=== PATIENT | female | born 1990 | race Caucasian/White ===

== ENCOUNTER → 2017-10-01 17:26 | Outpatient (CLI) | payer SELFPAY ==
[2017-10-01 20:39] LABS: Chlamydia Trachomatis by PCR Negative (Negative); Neisserai gonorrhoeae by PCR Negative (Negative); Probe Check PASS; Sample Adequacy Control PASS; Specimen Processing Control PASS
== END ==
PROVIDERS: Visit Provider Obstetrics & Gynecology
DX: Z34.90 Encounter for supervision of normal pregnancy, unspecified, unspecified trimester (principal)
CPT/HCPCS: 87086; 87491; 87591

== ENCOUNTER → 2017-10-13 15:40 | Outpatient (CLI) | payer SELFPAY ==
[2017-10-13 18:34] LABS: Absolute Lymphocyte Count 2.65 X10^3/ul (0.83-4.51); Absolute Neutrophil Count 4.7 X10^3/uL (2.0-7.7); Basophil# 0.03 X10^3/uL; Basophil% 0.4 % (0-1); Eosinophil# 0.09 X10^3/uL; Eosinophils% 1.1 % (0-5); Hematocrit 36.9 % (37-47); Hemoglobin 12.9 g/dl (12.0-15.0); Lymphocyte # 2.65 X10^3/ul (4.0); Lymphocyte % 32.5 % (19-41); Mean Corpuscular Hgb 30.7 pg (27.0-32.0); Mean Corpuscular Volume 87.9 fL (81-99); Mean Platelet Vol. 11.7 fl (6.2-12.0); Monocyte# 0.71 X10^3/uL; Monocyte% 8.7 % (0-10); Neutrophil # 4.66 X10^3/uL (2.7-7.7); Neutrophil % 57.2 % (47-70); Platelet Count 230 K/mm3 (150-450); RBC Distribution Width CV 11.8 % (11.6-14.6); RBC Distribution Width SD 37.7 fl (35.1-43.9); White Blood Count 8.2 K/mm3 (4.4-11.0)
[2017-10-13 18:44] LABS: POSITIVE COUNT NO; POSITIVE DIFFERENTIAL NO; POSITIVE MORPHOLOGY NO
[2017-10-13 19:27] LABS: HIV - WCH Non-Reactive (Nonreactive); Rubella IgG 279.6 IU/mL
[2017-10-15 11:40] LABS: HEPATITIS B SURFACE AG Negative (Negative)
[2017-10-17 04:35] LABS: Rapid Plasmin Reagin (RPR) NONREACTIVE (NONREACTIVE)
== END ==
PROVIDERS: Visit Provider Obstetrics & Gynecology
DX: Z34.90 Encounter for supervision of normal pregnancy, unspecified, unspecified trimester (principal); Z31.5 Encounter for procreative genetic counseling
CPT/HCPCS: 85025; 86592; 86703; 86762; 86850; 86900; 87340

== ENCOUNTER 2017-11-06 03:57 | Emergency (ER) | payer SELFPAY ==
[2017-11-06 03:58] VITALS: BP 127/90; PULSE 103; RESP 20; TEMP 36.9; O2SAT 100; BMI 23.5
--- NOTE | 2017-11-06 04:35 | ED.DCSUM_ITS ---
- ER Visit Summary Date of Service: 11/06/17 Chief Complaint: [] Vaginal bleeding and History of Present Illness: The patient is a 27 F [] proximally 14 weeks . She woke up tonight and had some vaginal bleeding. Initially was heavy like a period. It has slowed down. No clots or tissue. No pain. She has had 2 normal ultrasounds. This is her first . Her blood type is O+. Physical Examination: [] Vital signs reviewed General: Well-nourished well-developed Head: Normocephalic atraumatic Eyes: Pupils equal round and reactive to light extraocular movements intact ENT: TMs clear no hemotympanum no trauma Neck: Nontender full range of motion Cardiovascular: Regular rate rhythm no murmurs normal S1-S2 Respiratory: No distress clear to auscultation bilaterally chest nontender Abdomen: Soft nontender nondistended normal bowel sounds no masses Pelvic: Os is closed. Cervix appears normal. Very mild blood in the posterior fornix. No tissue. No clots. Back: Nontender no CVA tenderness Extremities: Nontender active range of motion ?4 extremities no trauma Skin: Normal color no trauma Neuro alert oriented cranial nerves II through XII intact normal strength sensation reflexes Test Results: [] Emergency Department Course and Treatment: [] Patient would like to stay for a morning ultrasound. This will be ordered. She is O+ therefore does not need RhoGam. She will follow-up with her [employer]. Morning will check the ultrasound Treatment Plan: [] Disposition: [] Impression: [] Vaginal bleeding in first trimester This note was generated with [employer] dictation software. It may contain incorrect words, spelling, and punctuation that were not noted in review of the chart prior to signing ED Disposition - Plan for ED Patient: Chief Complaint: Vag Bld, Preg Referrals: Graeme Mendoza MD [Primary Care Provider] -
--- NOTE | 2017-11-06 07:33 | NURSING ---
DR ROLON IN ROOM
[2017-11-06 07:41] VITALS: BP 128/68; PULSE 84; RESP 18; O2SAT 98
--- NOTE | 2017-11-06 08:19 | ED.VISSUMM ---
- ER Visit Summary Date of Service: 11/06/17 Was seen by me, ultrasound shows an intra-uterine with a normal heart rate. She was reassured but told that at 13 weeks if there is an unfortunate event miscarriage we cannot stop it. We will discharge in stable condition This note was generated with [employer] software. It may contain incorrect words, spelling, and punctuation that were not noted in review of the chart prior to signing ED Disposition - Plan for ED Patient: Disposition: Home or Assisted Living Chief Complaint: Vag Bld, Preg Instructions: ED Miscarriage Poss Referrals: Graeme Mendoza MD [Primary Care Provider] - 2 Days
[2017-11-06 08:34] VITALS: BP 117/67; PULSE 89; RESP 18; O2SAT 99
== END 2017-11-06 08:36 | disposition home or self-care (01) ==
PROVIDERS: Emergency Provider Emergency Medicine; Family Provider Family Medicine; PCP Family Medicine
DX: O20.0 Threatened abortion (principal)
CPT/HCPCS: 76816; 99282

== ENCOUNTER → 2017-11-07 12:24 | Outpatient (CLI) | payer SELFPAY ==
--- NOTE | 2017-11-07 10:10 | POC_PTH ---
PATIENT: MICHAELA LOBATO LOC: [facility] U#:[id number] AGE/SX: 34/F ROOM: RE11/07/[address]: Dr. Kelley Benz MD : 1990 BED: DIS: SPEC #: [id number] RECD: 11/07/17 10:34 STATUS: VICTORIANO NILE #: [id number] OPAL: 11/07/17 10:[address]: Kelley Benz DEPT: SURGICAL PATHOLOGY RECD BY: Harlan Carias ENTERED: 11/07/17 13:03 SP TYPE: PROD CONC OTHR DR: Dr. Graeme Mendoza MD Tissues: Product of conception, NOS Procedures: Surgery Specimen Level IV HEADER OPERATION: Missed PRE-OP DIAGNOSIS: Miscarriage TISSUE SUBMITTED: Fetus, placenta MICROSCOPIC DIAGNOSIS Fetus and placenta: Macerated fetus and immature placental tissue (products of conception). WILLIAM:janis 11/10/17 MICROSCOPIC DESCRIPTION Slides are reviewed. GROSS DESCRIPTION Received is one container labeled with the patient's name and not further designated. The specimen consists of a macerated fetus. The fetus measures 6 cm rump to top of head and approximately 8.5 cm from head to heel. No obvious gross abnormalities are identified. Also present in the specimen container is a placenta measuring 5.5 x 4 x 2 cm. The placenta weighs 13.5 gm. Serial sections of the placenta does not reveal mass lesions. Tail [employer] Worker sections are submitted in three cassettes as follows: 1 ? portions of fetus, 2 ? umbilical cord and placental membranes, 3 ? placental disc. / AM:janis 11/07/17 TC:5 CPT: 31015
== END ==
PROVIDERS: Family Provider Family Medicine; PCP Family Medicine; Visit Provider Obstetrics & Gynecology
DX: O02.1 Missed abortion (principal)
CPT/HCPCS: 88305

== ENCOUNTER → 2017-11-13 13:20 | Outpatient (CLI) | payer SELFPAY | PROVIDERS: Family Provider Family Medicine; PCP Family Medicine; Visit Provider Obstetrics & Gynecology | DX: O03.9 Complete or unspecified spontaneous abortion without complication (principal) ==

== ENCOUNTER → 2017-11-17 12:11 | Outpatient (CLI) | payer SELFPAY ==
[2017-11-17 13:56] LABS: Thyroid Stim Hormone (TSH) 1.95 uIU/mL (0.358-3.74)
== END ==
PROVIDERS: Family Provider Family Medicine; PCP Family Medicine; Visit Provider Obstetrics & Gynecology
DX: O03.9 Complete or unspecified spontaneous abortion without complication (principal)
CPT/HCPCS: 36415; 84443

== ENCOUNTER 2018-02-16 10:10 | Emergency (ER) | payer SELFPAY ==
[2018-02-16 10:13] VITALS: BP 135/76; PULSE 82; RESP 14; TEMP 36.7; O2SAT 98; BMI 22.9
--- NOTE | 2018-02-16 10:25 | RAD_ITS ---
STUDY: X-RAY CHEST REASON FOR EXAM: Female, 27 years old. One-week history of pleuritic chest pain. TECHNIQUE: PA and lateral views of the chest. COMPARISON: None. FINDINGS: The lungs are clear and expanded. There is no demonstrated pleural abnormality. Normal size heart. Normal mediastinum and brandon. Normal visualized pulmonary arteries. Normal visualized aortic arch and descending thoracic aorta. Normal visualized thoracic spine. Normal visualized ribs, clavicles, and shoulders. There is no demonstrated abnormality of the visualized soft tissue structures of the upper abdomen. RAD/Chest PA and Lateral IMPRESSION: Normal x-ray examination of the chest. Electronically Signed: Fritz Mckinley MD at 10:45 EST Tel [phone], Service support ,
--- NOTE | 2018-02-16 10:27 | ED.VISSUMM ---
- ER Visit Summary Date of Service: 02/16/18 Chief Complaint: Patient sent to the ER from urgent care because of chest pain History of Present Illness: The patient is a 27 F who was seen by her primary care physician last week and instructed to take 600 mg of ibuprofen every 6 hours for costochondritis. She does report pain anteriorly and states she has pain with movement, palpation and breathing. She denies history of PE or DVT and she has no risk factors. She denies leg pain, swelling or discoloration. She does report mild nasal congestion. She denies headache, ocular, visual or auditory symptoms. She denies nausea, vomiting or diarrhea. She denies dysuria, frequency, urgency or hematuria. She denies myalgias or arthralgias. Physical Examination: Vital signs noted unremarkable blood pressure 135/76. Head is atraumatic normocephalic. Pupils are equal round reactive. Extraocular muscles are intact. TMs are pearly white with landmarks noted. Nares patent with no drainage; mucosa is boggy. Purulent, close. Posterior pharynx without erythema or exudate. Uvula is midline. There is no dysphonia or dysphasia. Trachea is midline. There is no stridor with auscultation of the neck. Heart is regular without murmur, gallop or rub. S1 and S2 are normal. A click was noted. (The patient states she has history of mitral valve prolapse.) Lungs are clear to auscultation with good movement of air bilaterally. There is reproducible bilateral anterior chest pain left greater than right. Abdomen is soft nontender with no hepatosplenomegaly. There is no asymmetry, swelling, discoloration, leg vein distention, palpable cords or tenderness along the distribution of the deep venous system. Test Results: Two-view chest x-ray interpreted by me as negative. There is no infiltrate, pneumothorax, effusion. Cardiac silhouette is normal. Mediastinum is normal with no hilar lymphadenopathy. Osseous structures are normal. Emergency Department Course and Treatment: Patient is PERC negative. Patient has reproducible pain as well as pleuritic component. Because she reported nasal congestion and symptoms have been present for 1 week will obtain chest x-ray to evaluate for pneumonia. Otherwise will continue anti-inflammatory and treat for pleurisy. She may also have costochondritis. Treatment Plan: Continue NSAID Disposition: Discharged to home Impression: 1. Pleuritic chest pain 2. History of mitral valve prolapse This note was generated with [employer] dictation software. It may contain incorrect words, spelling, and punctuation that were not noted in review of the chart prior to signing ED Disposition - Plan for ED Patient: Disposition: Home or Assisted Living Chief Complaint: Chest Pain Instructions: ED Chest Pain Pleurisy, ED Prolapse Mitral Valve, Heart Valve Problems: Mitral Valve Prolapse Referrals: Graeme Mendoza MD [Primary Care Provider] - 1 Week if not improving
--- NOTE | 2018-02-16 10:30 | ED.DCSUM_ITS ---
- ER Visit Summary Date of Service: 02/16/18 Chief Complaint: Patient sent to the ER from urgent care because of chest pain History of Present Illness: The patient is a 27 F who was seen by her primary care physician last week and instructed to take 600 mg of ibuprofen every 6 hours for costochondritis. She does report pain anteriorly and states she has pain with movement, palpation and breathing. She denies history of PE or DVT and she has no risk factors. She denies leg pain, swelling or discoloration. She does report mild nasal congestion. She denies headache, ocular, visual or auditory symptoms. She denies nausea, vomiting or diarrhea. She denies dysuria, frequency, urgency or hematuria. She denies myalgias or arthralgias. Physical Examination: Vital signs noted unremarkable blood pressure 135/76. Head is atraumatic normocephalic. Pupils are equal round reactive. Extraocular muscles are intact. TMs are pearly white with landmarks noted. Nares patent with no drainage; mucosa is boggy. Purulent, close. Posterior pharynx without erythema or exudate. Uvula is midline. There is no dysphonia or dysphasia. Trachea is midline. There is no stridor with auscultation of the neck. Heart is regular without murmur, gallop or rub. S1 and S2 are normal. A click was noted. (The patient states she has history of mitral valve prolapse.) Lungs are clear to auscultation with good movement of air bilaterally. There is reproducible bilateral anterior chest pain left greater than right. Abdomen is soft nontender with no hepatosplenomegaly. There is no asymmetry, swelling, discoloration, leg vein distention, palpable cords or tenderness along the distr ibution of the deep venous system. Test Results: Two-view chest x-ray interpreted by me as negative. There is no infiltrate, pneumothorax, effusion. Cardiac silhouette is normal. Mediastinum is normal with no hilar lymphadenopathy. Osseous structures are normal. Emergency Department Course and Treatment: Patient is PERC negative. Patient has reproducible pain as well as pleuritic component. Because she reported nasal congestion and symptoms have been present for 1 week will obtain chest x- ray to evaluate for pneumonia. Otherwise will continue anti-inflammatory and treat for pleurisy. She may also have costochondritis. Treatment Plan: Continue NSAID Disposition: Discharged to home Impression: 1. Pleuritic chest pain 2. History of mitral valve prolapse This note was generated with [employer] dictation software. It may contain incorrect words, spelling, and punctuation that were not noted in review of the chart prior to signing ED Disposition - Plan for ED Patient: Disposition: Home or Assisted Living Chief Complaint: Chest Pain Instructions: ED Chest Pain Pleurisy, ED Prolapse Mitral Valve, Heart Valve Problems: Mitral Valve Prolapse Referrals: Graeme Mendoza MD [Primary Care Provider] - 1 Week if not improving
[2018-02-16 11:03] VITALS: BP 120/82; PULSE 86; RESP 14; O2SAT 99
[2018-02-16 12:31] VITALS: BP 112/78
== END 2018-02-16 12:40 | disposition home or self-care (01) ==
PROVIDERS: Emergency Provider Emergency Medicine; Family Provider Family Medicine; PCP Family Medicine
DX: R07.81 Pleurodynia (principal); I34.1 Nonrheumatic mitral (valve) prolapse; Z72.0 Tobacco use
CPT/HCPCS: 71046; 99282

== ENCOUNTER → 2018-04-08 15:52 | Outpatient (CLI) | payer SELFPAY ==
[2018-04-08 17:03] LABS: hCG Titer Quant., Serum 135 mIU/mL (<9 non-preg)
--- OUTSIDE RECORDS SUMMARY | 2018-06-13 15:28 | XMS RPT_ITS ---
:1990 Author Organization [facility] Support Name Relationship Address Phone SOCRATES LOBATO Unavailable [address] + [place] [address] [facility] PLANISHING HAMMER OPERATOR Unavailable [address] + [place] [address] HELADARSH GONZALEZSHUA Unavailable [address] + [place] [address] [facility] PLANISHING HAMMER OPERATOR Unavailable [address] + [place] [address] HELMS, SOCRATES Unavailable [address] + [place] [address] [facility] PLANISHING HAMMER OPERATOR Unavailable [address] + [place] [address] HELMS, SOCRATES Unavailable [address] + [place] [address] [facility] PLANISHING HAMMER OPERATOR Unavailable [address] + [place] [address] HELMS, SOCRATES Unavailable [address] + [place] [address] [facility] PLANISHING HAMMER OPERATOR Unavailable [address] + [place] [address] HELMS, SOCRATES Unavailable [address] + [place] [address] [facility] PLANISHING HAMMER OPERATOR Unavailable [address] + [place] [address] HELMS, SOCRATES Unavailable [address] + [place] [address] [facility] PLANISHING HAMMER OPERATOR Unavailable [address] + [place] [address] HELMS, SOCRATES Unavailable [address] + [place] [address] [facility] PLANISHING HAMMER OPERATOR Unavailable [address] + [place] [address] HELMS, SOCRATES Unavailable [address] + [place] [address] [facility] PLANISHING HAMMER OPERATOR Unavailable [address] + [place] [address] CLARK LOBATOUA Unavailable [address] + [place] [address] [facility] PLANISHING HAMMER OPERATOR Unavailable . + [place] [address] ADARSH LOBATOSHUA Unavailable [address] + [place] [address] [facility] PLANISHING HAMMER OPERATOR Unavailable [address] + [place] [address] ADARSH LOBATOSHUA Unavailable [address] + [place] [address] [facility] PLANISHING HAMMER OPERATOR Unavailable . + [place] [address] ADARSH LOBATOSHUA Unavailable [address] + [place] [address] [facility] PLANISHING HAMMER OPERATOR Unavailable Unavailable + [place] [address] [facility] PLANISHING HAMMER OPERATOR Unavailable Unavailable + [place] [address] Care Team Providers Name Role Phone Millie James Attending Unavailable JacobMillie Referring Unavailable Schinner, Graeme E Primary Care Unavailable Millie James Attending Unavailable JacobMillie Referring Unavailable Schinner, Graeme E Primary Care Unavailable Kelley Benz Attending Unavailable Primay Care Physicia, No Referring Unavailable Primay Care Physicia, No Primary Care Unavailable Kelley Benz Attending Unavailable Primay Care Physicia, No Primary Care Unavailable Kelley Benz Referring Unavailable MarcanthonyKelley Attending Unavailable MarcanthonyKelley Referring Unavailable Primay Care Physicia, No Primary Care Unavailable JacobMillie Attending Unavailable Schinner, Graeme E Referring Unavailable Primay Care Physicia, No Primary Care Unavailable Schinner, Graeme E Primary Care Unavailable Chuck Gamez Attending Unavailable MarcanthonyKelley Attending Unavailable Schinner, Graeme E Referring Unavailable JacobMillie Attending Unavailable Schinner, Graeme E Referring Unavailable MarcanthonyKelley Attending Unavailable Schinner, Graeme E Primary Care Unavailable JconyKelley Referring Unavailable MarcanthonyKelley Attending Unavailable Amilcaranthony Kelley Referring Unavailable Schinner, Graeme E Primary Care Unavailable Marcanthony, Kelley Attending Unavailable Kelley Benz Referring Unavailable Graeme Mendoza Primary Care Unavailable Graeme Mendoza Primary Care Unavailable Kavin Boyle Attending Unavailable PROBLEMS PROBLEMS DATE TYPE CONDITION / CODE ATTENDING STATUS SOURCE 12/12/2017 Unknown O03.9 - Complete Tuyet, Active [place] or unspecified [facility] spontaneous Hospital without Repository complication / O03.9(ICD-10) 11/06/2017 Unknown Z34.90 - Encounter Tuyet, Active [place] for supervision of [facility] normal , Hospital unspecified, Repository unspecified trimester / Z34.90(ICD-10) 10/01/2017 Unknown Z34.01 - Encounter Tuyet, Active [place] for supervision of [facility] normal first Hospital , first Repository trimester / Z34.01(ICD-10) PROCEDURES PROCEDURES No Procedure Records FoundRESULTS RESULTS HCG TITER QUANT., Collected: 04/10/2018 Status: F Source: DES ARC SERUM 12:17 PM [facility] [place] [place] REPOSITORY Order Comment: Date of Last Menstrual Period? 03/10/18 TYPE CODE TESTS RESULT OUT OF RANGE REFERENCE UNITS LAB L700.8000 <9 non-preg mIU/mL High HCG 326 QUANT. Performed By: #### L700.8000 #### [facility] [address] [place], [address] HCG TITER QUANT., Collected: 04/08/2018 Status: F Source: DES ARC SERUM 3:57 PM [facility] [place] [place] REPOSITORY TYPE CODE TESTS RESULT OUT OF RANGE REFERENCE UNITS LAB L700.8000 <9 non-preg mIU/mL High HCG 135 QUANT. Performed By: #### L700.8000 #### [facility] [address] [place], [address] EMERGENCY DEPARTMENT Observed: 02/16/2018 Status: F Source: [place] SUMMARY 11:48 AM [facility] [place] [place] REPOSITORY [facility] Medical Records Department [address] [place] [address] Emergency Department Summary 02/16/18 1027 MR#: [id number] Acct: [id number] Name: MICHAELA LOBATO Rep #: [id number] : 1990 27 From: Kavin Boyle MD PCP: Graeme Mendoza MD Status: REG ER - ER Visit Summary Date of Service: 02/16/18 Chief Complaint: Patient sent to the ER from urgent care because of chest pain History of Present Illness: The patient is a 27 F who was seen by her primary care physician last week and instructed to take 600 mg of ibuprofen every 6 hours for costochondritis. She does report pain anteriorly and states she has pain with movement, palpation and breathing. She denies history of PE or DVT and she has no risk factors. She denies leg pain, swelling or discoloration. She does report mild nasal congestion. She denies headache, ocular, visual or auditory symptoms. She denies nausea, vomiting or diarrhea. She denies dysuria, frequency, urgency or hematuria. She denies myalgias or arthralgias. Physical Examination: Vital signs noted unremarkable blood pressure 135/76. Head is atraumatic normocephalic. Pupils are equal round reactive. Extraocular muscles are intact. TMs are pearly white with landmarks noted. Nares patent with no drainage; mucosa is boggy. Purulent, close. Posterior pharynx without erythema or exudate. Uvula is midline. There is no dysphonia or dysphasia. Trachea is midline. There is no stridor with auscultation of the neck. Heart is regular without murmur, gallop or rub. S1 and S2 are normal. A click was noted. (The patient states she has history of mitral valve prolapse.) Lungs are clear to auscultation with good movement of air bilaterally. There is reproducible bilateral anterior chest pain left greater than right. Abdomen is soft nontender with no hepatosplenomegaly. There is no asymmetry, swelling, discoloration, leg vein distention, palpable cords or tenderness along the distribution of the deep venous system. Test Results: Two-view chest x-ray interpreted by me as negative. There is no infiltrate, pneumothorax, effusion. Cardiac silhouette is normal. Mediastinum is normal with no hilar lymphadenopathy. Osseous structures are normal. Emergency Department Course and Treatment: Patient is PERC negative. Patient has reproducible pain as well as pleuritic component. Because she reported nasal congestion and symptoms have been present for 1 week will obtain chest x-ray to evaluate for pneumonia. Otherwise will continue anti-inflammatory and treat for pleurisy. She may also have costochondritis. Treatment Plan: Continue NSAID Disposition: Discharged to home Impression: 1. Pleuritic chest pain 2. History of mitral valve prolapse This note was generated with VII NETWORK dictation software. It may contain incorrect words, spelling, and punctuation that were not noted in review of the chart prior to signing ED Disposition - Plan for ED Patient: Disposition: Home or Assisted Living Chief Complaint: Chest Pain Instructions: ED Chest Pain Pleurisy, ED Prolapse Mitral Valve, Heart Valve Problems: Mitral Valve Prolapse Referrals: Graeme Mendoza MD [Primary Care Provider] - 1 Week if not improving What to do if you have Problems For any increased pain, shortness of breath, bleeding, nausea or vomiting, chest pain, or any unexpected problems, contact your Primary Care Provider. Call [facility] ([phone]) or report to the closest Emergency Room. Call 911 if necessary. 02/16/18 1148 <Electronically signed by Kavin Boyle MD> Date Kavin Boyle MD Cosigner Signature (If Indicated): Date CC: Graeme Mendoza MD CHEST PA AND LATERAL Observed: 02/16/2018 Status: F Source: DES ARC 10:21 AM [facility] [place] [place] REPOSITORY [facility] Imaging Services [address] [place] [address] Chest PA and Lateral MR#: [id number] Acct: [id number] Name: MICHAELA LOBATO Rep #: [id number] : 1990 F 27 From: Fritz Mckinley MD PCP: Graeme Mendoza MD Status: PRE ER Study: Chest PA and Lateral Date of Exam: 02/16/18 Exam# [id number] Ordering Dr: Kavin Boyle MD STUDY: X-RAY CHEST REASON FOR EXAM: Female, 27 years old. One-week history of pleuritic chest pain. TECHNIQUE: PA and lateral views of the chest. COMPARISON: None. FINDINGS: The lungs are clear and expanded. There is no demonstrated pleural abnormality. Normal size heart. Normal mediastinum and brandon. Normal visualized pulmonary arteries. Normal visualized aortic arch and descending thoracic aorta. Normal visualized thoracic spine. Normal visualized ribs, clavicles, and shoulders. There is no demonstrated abnormality of the visualized soft tissue structures of the upper abdomen. RAD/Chest PA and Lateral IMPRESSION: Normal x-ray examination of the chest. Electronically Signed: Fritz Mckinley MD at 10:45 EST Tel [phone], Service support , CC: Graeme Mendoza MD; Kavin Boyle MD Rate Clerk Passenger: Signed THYROID STIM HORMONE Collected: 11/17/2017 Status: F Source: [place] (TSH) 12:23 PM [facility] [place] [place] REPOSITORY TYPE CODE TESTS RESULT OUT OF RANGE REFERENCE UNITS LAB L501.9520 0.358-3.74 uIU/mL Normal TSH 1.95 Performed By: #### L501.9520, L801.1541 #### [facility] [place], [address] MISCELLANEOUS LAB Collected: 11/17/2017 Status: F Source: [place] PROCEDURE 12:23 PM [facility] [place] [place] REPOSITORY Order Comment: Comments: ANTIPHOSPHOLIPID AB [id number] PLASMA/FZ SER/RT Comments: Antiphosolipid Antibody Test(s) Ordered: ANTIPHOSPHOLIPID AB [id number] PLASMA/FZ SER/RT TYPE CODE TESTS RESULT OUT OF RANGE REFERENCE UNITS LAB L801.1541 Normal [facility] LAB TEST Result Comment: TEST RESULT UNITS REF INTERVAL Antiphospholipid Syndrome aPTT 27.6 sec 22.9 - 30.2 PT 11.1 sec 9.6 - 11.5 INR 1.0 0.9 - 1.1 Reference interval is for non-anticoagulated patients. Suggested INR therapeutic range for Vitamin K antagonist therapy: Standard Dose (moderate intensity therapeutic range): 2.0 - 3.0 Higher intensity therapeutic range 2.5 - 3.5 Thrombin Time 18.0 sec 0.0 - 23.0 dRVVT 37.7 sec 0.0 - 47.0 Hexagonal Phase Phospholipid 0 sec 0 - 11 Anticardiolipin Ab,IgG,Qn <9 GPL U/mL 0 - 14 Negative: <15 Indeterminate: 15 - 20 Low-Med Positive: >20 - 80 High Positive: >80 Anticardiolipin Ab,IgM,Qn <9 MPL U/mL 0 - 12 Negative: <13 Indeterminate: 13 - 20 Low-Med Positive: >20 - 80 High Positive: >80 Beta-2 Glycoprotein I Ab, IgG <9 GPI IgG 0 - 20 units Please Note: The reference interval reflects a 3SD or 99th percentile interval, which is thought to represent a potentially clinically significant result in accordance with the International Consensus Statement on the classification criteria for definitive antiphospholipid syndrome (APS). J Thromb Haem 2006;4:295-306. Beta-2 Glycoprotein I Ab, IgM <9 GPI IgM units 0 - 31 Please Note: The reference interval reflects a 3SD or 99th percentile interval, which is thought to represent a potentially clinically significant result in accordance with the International Consensus Statement on the classification criteria for definitive antiphospholipid syndrome (APS). J Thromb Haem 2006;4:295-306. APS Panel Interpretation Please refer to the Coag Studies Interp Report. Coag Studies Interp Report Interpretation Note COAGULATION: ANTIPHOSPHOLIPID SYNDROME ASSESSMENT ASSESSMENT A lupus anticoagulant is not detected. aCL and B2GP1 antibodies are normal. ANTIPHOSPHOLIPID SYNDROME ASSESSMENT SUMMARY - No evidence of a lupus anticoagulant, B2GP1 or aCL antibodies. As antibody titers may fluctuate with time, repeat testing may be indicated if antiphospholipid syndrome is suspected. ANTIPHOSPHOLIPID SYNDROME ASSESSMENT DEFINITIONS - aCL- anticardiolipin (antibodies to cardiolipin); B2GP1- antibodies to Beta-2 Glycoprotein 1; LA- lupus anticoagulant (which is identified with the dRVVT and/or hexagonal phospholipid neutralization assays); aPL- antibodies to protein/phospholipid complexes such as LA, aCL, and B2GP1 antibodies; APS- antiphospholipid syndrome; DTI-direct thrombin inhibitors. - AIRCRAFT MECHANIC: For questions regarding panel interpretation, please contact Charanjit Hilliard M.D. at [facility] [facility] at . DISCLAIMER These assessments and interpretations are provided as a convenience in support of the physician-patient relationship and are not intended to replace the physician's clinical judgment. They are derived from national guidelines in addition to other evidence and expert opinion. The clinician should consider this information within the context of clinical opinion and the individual patient. SEE GUIDANCE FOR ANTIPHOSPHOLIPID SYNDROME ASSESSMENT:(1) Yolande Kirby et al. J Thromb Haemost. 2009; 7(10):9156-8653. (2) Dillon S et al. J Thromb Haemost. 2006;4(2):295-306. (3) Justin DA et al. Blood. 2007;110(9): 6831-7217. TESTING PERFORMED AT [facility]. ORIGINAL REPORT ON FILE IN LAB CONTAINS ADDITIONAL TEST SITE INFORMATION. Performed By: #### L501.9520, L801.1541 #### [facility] [address] [place], [place], [address] PRODUCTS OF CONCEPTION Observed: 11/07/2017 Status: F Source: [place] 10:10 AM [facility] [place] [place] REPOSITORY Patient: MICHAELA LOBATO : 1990 (27/F) Acct Num: [id number] Phys: Tuyet BUCKNER,Kelley Unit Num: [id number] Loc: LABSPEC Specimen: [id number] Received: 11/07/17 - 1034 Spec Type: PROD CONC TISSUES TISSUES: Product of conception, NOS GROSS DESCRIPTION Received is one container labeled with the patient's name and not further designated. The specimen consists of a macerated fetus. The fetus measures 6 cm rump to top of head and approximately 8.5 cm from head to heel. No obvious gross abnormalities are identified. Also present in the specimen container is a placenta measuring 5.5 x 4 x 2 cm. The placenta weighs 13.5 gm. Serial sections of the placenta does not reveal mass lesions. Title Clerk Automobile sections are submitted in three cassettes as follows: 1 portions of fetus, 2 umbilical cord and placental membranes, 3 placental disc. / AM:janis 11/07/17 TC:5 CPT: 35320 HEADER OPERATION: Missed PRE-OP DIAGNOSIS: Miscarriage TISSUE SUBMITTED: Fetus, placenta MICROSCOPIC DESCRIPTION Slides are reviewed. MICROSCOPIC DIAGNOSIS Fetus and placenta: Macerated fetus and immature placental tissue (products of conception). SJ:janis 11/10/17 Signed Alvin Freeman 11/10/17 <signature on file> Performed By: #### PPOC #### [facility] [address] [facility], [address] EMERGENCY DEPARTMENT Observed: 11/06/2017 Status: F Source: [place] AR[place] SUMMARY 8:20 AM [facility] [place] [place] REPOSITORY [facility] Medical Records Department [address] [address] Emergency Department Summary 11/06/17 0819 MR#: [id number] Acct: [id number] Name: MICHAELA LOBATO Rep #: [id number] : 1990 27 From: Chuck Gamez MD PCP: Graeme Mendoza MD Status: REG ER - ER Visit Summary Date of Service: 11/06/17 Was seen by me, ultrasound shows an intra-uterine with a normal heart rate. She was reassured but told that at 13 weeks if there is an unfortunate event miscarriage we cannot stop it. We will discharge in stable condition This note was generated with Dragon dictation software. It may contain incorrect words, spelling, and punctuation that were not noted in review of the chart prior to signing ED Disposition - Plan for ED Patient: Disposition: Home or Assisted Living Chief Complaint: Vag Bld, Preg Instructions: ED Miscarriage Poss Referrals: Graeme Mendoza MD [Primary Care Provider] - 2 Days What to do if you have Problems For any increased pain, shortness of breath, bleeding, nausea or vomiting, chest pain, or any unexpected problems, contact your Primary Care Provider. Call [facility] ([phone]) or report to the closest Emergency Room. Call 911 if necessary. 11/06/17 08 <Electronically signed by Chuck Gamez MD> Date Chuck Gamez MD Cosigner Signature (If Indicated): Date CC: Graeme Mendoza MD EMERGENCY DEPARTMENT Observed: 11/06/2017 Status: F Source: DES AR[place] SUMMARY 4:42 AM [facility] [place] [place] REPOSITORY [facility] Medical Records Department [address] [facility] [place] [address] Emergency Department Summary 11/06/17 0433 MR#: [id number] Acct: [id number] Name: MICHAELA LOBATO DEL[place] Rep #: [id number] : 1990 27 From: Rogelio Meza MD PCP: Graeme Mendoza MD Status: REG ER - ER Visit Summary Date of Service: 11/06/17 Chief Complaint: [] Vaginal bleeding and History of Present Illness: The patient is a 27 F [] proximally 14 weeks . She woke up tonight and had some vaginal bleeding. Initially was heavy like a period. It has slowed down. No clots or tissue. No pain. She has had 2 normal ultrasounds. This is her first . Her blood type is O+. Physical Examination: [] Vital signs reviewed General: Well-nourished well-developed Head: Normocephalic atraumatic Eyes: Pupils equal round and reactive to light extraocular movements intact ENT: TMs clear no hemotympanum no trauma Neck: Nontender full range of motion Cardiovascular: Regular rate rhythm no murmurs normal S1-S2 Respiratory: No distress clear to auscultation bilaterally chest nontender Abdomen: Soft nontender nondistended normal bowel sounds no masses Pelvic: Os is closed. Cervix appears normal. Very mild blood in the posterior fornix. No tissue. No clots. Back: Nontender no CVA tenderness Extremities: Nontender active range of motion 4 extremities no trauma Skin: Normal color no trauma Neuro alert oriented cranial nerves II through XII intact normal strength sensation reflexes Test Results: [] Emergency Department Course and Treatment: [] Patient would like to stay for a morning ultrasound. This will be ordered. She is O+ therefore does not need RhoGam. She will follow-up with her SECURITY INSTALLATION TECHNICIAN. Morning will check the ultrasound Treatment Plan: [] Disposition: [] Impression: [] Vaginal bleeding in first trimester This note was generated with VII NETWORK dictation software. It may contain incorrect words, spelling, and punctuation that were not noted in review of the chart prior to signing ED Disposition - Plan for ED Patient: Chief Complaint: Vag Bld, Preg Referrals: Graeme Mendoza MD [Primary Care Provider] - What to do if you have Problems For any increased pain, shortness of breath, bleeding, nausea or vomiting, chest pain, or any unexpected problems, contact your Primary Care Provider. Call [facility] ([phone]) or report to the closest Emergency Room. Call 911 if necessary. 11/06/17 0442 <Electronically signed by Rogelio Meza MD> Date Rogelio Meza MD Cosigner Signature (If Indicated): Date CC: Graeme Mendoza MD OB LIMITED WITH Observed: 11/06/2017 Status: F Source: DES ARC BIOMETRICS 4:33 AM [facility] [place] [place] REPOSITORY [facility] Imaging Services [address] [place] [address] OB Limited With Biometrics MR#: [id number] Acct: [id number] Name: MICHAELA LOBATO Rep #: [id number] : 1990 F 27 From: Sinan Quinones MD PCP: Graeme Mendoza MD Status: REG ER Study: OB Limited With Biometrics Date of Exam: 11/06/17 Exam# [id number] Ordering Dr: Rogelio Meza MD STUDY: SECOND AND THIRD TRIMESTER OBSTETRICAL ULTRASOUND - LIMITED REASON FOR EXAM: Female, 27 years old. Bleeding. LMP: 08/03/2017 PRIOR ULTRASOUND: None. TECHNIQUE: Transabdominal ultrasound evaluation was performed. FINDINGS: There is a single intrauterine fetus. The fetus is in a cephalic presentation. There is demonstrated cardiac activity with a heart rate of 169 bpm. There is a normal amniotic fluid volume. The placenta is fundal in location. There are Grade 0 placental changes. BIOMETRY: BPD: 2.1: 13 weeks, 4 days HC: 7.7: 13 weeks, 3 days AC: 5.9: 12 weeks, 6 days FL: 0.89: 12 weeks, 5 days Age by LMP: 13 weeks, 4 days. TORO by LMP: 05/10/2018. age by current US: 13 weeks, 1 days. TORO by current US: 05/13/2018. Estimated weight: 63 grams, +/- 9 grams, 3 percentile. US/OB Limited With Biometrics IMPRESSION: Estimated weight: 63 grams, +/- 9 grams, 3 percentile. Electronically Signed: Sinan Quinones MD at 6:53 EDT Tel , Service support , CC: Graeme Mendoza MD; Rogelio Meza MD Rate Clerk Passenger: Signed SECURITY INSTALLATION TECHNICIAN OFFICE VISIT Observed: 10/29/2017 Status: F Source: [place] REPORT 1:25 PM [facility] [address] [place] [address] OFFICE VISIT Date of Service: 10/29/17 MR#: [id number] Acct: [id number] Name: MICHAELA LOBATO Rep #: [id number] : 1990 Provider: JENNIFER James Age/Sex: 27/F Location: [facility] [place] Status: Signed Intake Vital Signs10/29/17 Height 5 ft 2 in 10/29/17 Weight: 126 lb 10/29/17 Body Mass Index (BMI) 23.0 10/29/17 Blood Pressure 134/79 Intake Visit Reasons: 12 weeks Inking Machine Tender Required: No Is patient in pain?: No Allergies No Known Allergies Allergy (Verified 10/29/17 13:03) Medications vitamin,calcium,fyeaomgw-ntof-qfxpm acid tablet 1 tab PO QDAY 10/01/17 [History Confirmed 10/29/17] Last Menstral Period: 08/03/17 Zika: Zika virus screening: Negative : No PFSH PFSH Medical History Anxiety (Acute) Surgical History History of tonsillectomy (Acute) Social History Smoking Status: Never smoker alcohol intake: current details: pre substance use type: does not use caffeine: Yes what type of physical activity do you participate in: none seatbelt use: always do you feel safe at home: Yes additional social history: Patient works at [employer] History 1 Elective abortions Hx Para Spontaneous abortions HPI 12 weeks: Details: MICHAELA LOBATO is a 27 year old who presents for routine OB visit. OB Visit TORO Calculator Estimated Delivery Date 05/10/18 Based on LMP (certain) 08/03/17 Current WG 12w 3d Number 1 Expected Delivery Route/Plan Specific Issue/Plans flu vaccine: [] minichart given: [] tdap vaccine: [] rhogam: NA LARC form signed: [] labor support person: Clark pain management: [] cut cord/dad catch: [] : [] PP control planned: [] special requests: [] Initial Weight: 115 lb Date Weight BP Urine PrFHR FuHt Pres MoCTX DilationFetal StVisit NoProviderComments E ot v te GA G Effac lucose ed Visit Notes Visit Date: 10/29/17 Doing well. Rare nausea. NO VB, LOF. Brief US to confirm FHT JARAD Obrien on 10/29/17 ACOG First Trimester First Trimester: Desire for , Alcohol, Tobacco Cessation, Illicit/Recreational Drug/Substance Use, Intimate Partner Violence, Barriers to care, Unstable Housing, Communication Barriers, Environmental/Work Hazards, Anticipated Course of Care, Toxoplasmosis Precations, Use of Any medications, Sexual activity, Exercise, Dental Care, Sauna/Hot tub use, Seat Belt use, Childbirth classes/Hospital facilities, , Travel, Indications for US and Screening for Aneuploidy Diagnostics Diagnostics Labs Blood Type O POSITIVE 10/13/17 Antibody Screen NEGATIVE 10/13/17 Hct 36.9 % (37-47) L 10/13/17 Hgb 12.9 g/dl (12.0-15.0) 10/13/17 Pap Smear Negative 10/28/16 Rubella IgG Antibody 279.6 IU/mL 10/13/17 RPR NONREACTIVE (NONREACTIVE) 10/13/17 Hep Bs Antigen Negative (Negative) 10/13/17 Chlam trachomat DNA PCR Negative (Negative) 10/01/17 N.gonorrhoeae DNA (PCR) Negative (Negative) 10/01/17 Miscellaneous Test Pending 10/13/17 Details: HIV: Urine Culture: Sequential Screen: NIPT Screen: Results [id number] Office Urine Glucose Negative Last Edit by Kala Jalloh on 10/29/17 13:04 Office Urine Protein Negative Last Edit by Kala Jalloh on 10/29/17 13:04 Assessment AND Plan Problems 1. Encounter for supervision of normal first in first trimester Z34.01 TORO 05/10/18 Clark 2. screening encounter Z36.9 Panorama- Low risk- Male 3. 12 weeks gestation of Z3A.12 Plan Orders placed: none Reviewed symptoms to report to office Normal DNA on panorama testing-male ACOG trimester education reviewed and updated See problem list details for updated plan of care Gestational age appropriate handout given RTO: 4 weeks. Orders Orders: Coding Level of Care Code OB Routine Diagnoses Encounter for supervision of normal first in first trimester Z34.01 Normal : normal first Trimester: first trimester screening encounter Z36.9 12 weeks gestation of Z3A.12 Weeks of gestation: 12 weeks 10/29/17 1325 <Electronically signed by Millie ABRAHAM> Date Millie ABRAHAM Cosigner Signature: Date (if applicable) CC: MISCELLANEOUS LAB Collected: 10/13/2017 Status: F Source: KATIE PROCEDURE 3:49 PM [facility] [place], [place] REPOSITORY Order Comment: Test(s) Ordered: PANORAMA TESTING TYPE CODE TESTS RESULT OUT OF RANGE REFERENCE UNITS LAB L801.1541 Normal [facility] LAB TEST Result Comment: Sent directly to testing facility per ordering physician. 11/03/17 0924 MYOUNG Performed By: #### L801.1541 #### [facility] [address] [place], [address] CBC W/DIFF, AUTOMATED Collected: 10/13/2017 Status: F Source: KATIE 3:48 PM [facility] [place], [place] REPOSITORY TYPE CODE TESTS RESULT OUT OF RANGE REFERENCE UNITS LAB L100.1000 4.4-11.0 K/mm3 Normal WBC 8.2 LAB L100.1200 4.2-5.4 M/mm3 Normal RBC 4.20 LAB L100.1300 12.0-15.0 g/dl Normal HGB 12.9 LAB L100.1400 37-47 % Low HCT 36.9 LAB L100.1500 81-99 fL Normal MCV 87.9 LAB L100.1600 27.0-32.0 pg Normal MCH 30.7 LAB L100.1700 32-36 g/gl Normal MCHC 35.0 LAB L100.1810 11.6-14.6 % Normal RDW CV 11.8 LAB L100.1820 35.1-43.9 fl Normal RDW SD 37.7 LAB L100.1900 150-450 K/mm3 Normal PLT 230 LAB L100.2000 6.2-12.0 fl Normal MPV 11.7 LAB L100.2100 47-70 % Normal NEUT% 57.2 LAB L100.2200 19-41 % Normal LY% 32.5 LAB L100.2300 0-10 % Normal MONO% 8.7 LAB L100.2400 0-5 % Normal EO% 1.1 LAB L100.2500 0-1 % Normal BASO% 0.4 LAB L100.2550 0.0-0.9 % Normal IM GRAN % 0.100 Result Comment: IG% - Immature Granulocytes (promyelocytes, myelocytes and metamyelocytes) > 1% indicates that a LEFT SHIFT is Present. LAB L100.2620 2.0-7.7 X10 3/uL Normal Absolute Neut 4.7 LAB L100.2720 0.83-4.51 X10 3/ul Normal Absolute Lymph 2.65 Performed By: #### L100.0100, B101.7450 #### [facility] [address] [place], [address] #### L3100.0390 #### [facility] (refer to report for specific site) refer to report for address and phone number TYPE AND SCREEN Collected: 10/13/2017 Status: F Source: DES ARC 3:48 PM [facility] [place], [place] REPOSITORY Order Comment: Reason for Type AND Screen/Red Cells: TYPE CODE TESTS RESULT OUT OF RANGE REFERENCE UNITS LAB B10.0800 O Normal BLOOD TYPE GEL POSITIVE LAB B100.4000 Normal Antibody NEGATIVE Screen Performed By: #### L100.0100, B101.7450 #### [facility] [address] [facility] [place], [address] #### L3100.0390 #### [facility] (refer to report for specific site) refer to report for address and phone number HEPATITIS B SURFACE Collected: 10/13/2017 Status: F Source: KATIE AG 3:48 PM [facility] [place] [place] REPOSITORY TYPE CODE TESTS RESULT OUT OF RANGE REFERENCE UNITS LAB L3100.0400 Negative Normal HB Negative SURF AG Result Comment: Performed at: - [facility] [id number] Data Warehouse Specialist: Mychal Fair PhD, Phone: [phone] Performed By: #### L100.0100, B101.7450 #### [facility] [address] [place] [address]. [facility] [address] #### L3100.0390 #### [facility] (refer to report for specific site) refer to report for address and phone number RUBELLA IGG Collected: 10/13/2017 Status: F Source: KATIE 3:48 PM [facility] [place] [place] REPOSITORY TYPE CODE TESTS RESULT OUT OF RANGE REFERENCE UNITS LAB L509.4000 IU/mL Normal Rubella IgG 279.6 Result Comment: Antibody results Interpretation of Immune Status < 5 IU/ml Presumed Non-immune 5 - < 10 IU/ml Equivocal > or = 10 IU/ml Presumed Immune Performed By: #### L509.4000, L3890.6005, L700.5000 #### [facility] [address] [place], [place] [address]. [facility] [address] HIV - [facility] Collected: 10/13/2017 Status: F Source: KATIE 3:48 PM [facility] [place] [place] REPOSITORY TYPE CODE TESTS RESULT OUT OF RANGE REFERENCE UNITS LAB L3890.6005 Nonreactive Normal HIV - [facility] Non-Reactive Performed By: #### L509.4000, L3890.6005, L700.5000 #### [facility] [address] RAPID PLASMIN REAGIN Collected: 10/13/2017 Status: F Source: KATIE (RPR) 3:48 PM [facility] [place] [place] REPOSITORY TYPE CODE TESTS RESULT OUT OF REFERENCE UNITS RANGE LAB L700.5000 NONREACTIVE NONREACTIVE Normal RPR Performed By: #### L509.4000, L3890.6005, L700.5000 #### [facility] [address] [place], [address] CT/NG W[facility] BY PCR Collected: 10/01/2017 Status: F Source: KATIE 5:27 PM [facility] [place] [place] REPOSITORY TYPE CODE TESTS RESULT OUT OF RANGE REFERENCE UNITS LAB L8200.2100 Negative Normal Chlam Negative Trac PCR LAB L8200.2200 Negative Normal NG by Negative PCR Performed By: #### L8200.1999, M100.0650 #### [facility] [address] [place], [address] Observed: 10/01/2017 Status: F Source: KATIE CULTURE, URINE 5:27 PM [facility] [place] [place] REPOSITORY Urine Culture Culture exhibits no growth. Performed By: #### L8200.1999, M100.0650 #### [facility] [address] [place], [address] SECURITY INSTALLATION TECHNICIAN OFFICE VISIT Observed: 10/01/2017 Status: F Source: KATIE REPORT 10:20 AM [facility] [place], [place] REPOSITORY [facility] [address] [place] [address] OFFICE VISIT Date of Service: 10/01/17 MR#: [id number] Acct: [id number] Name: MICHAELA LOBATO DELTA Rep #: [id number] : 1990 Provider: Kelley Benz MD Age/Sex: 27/F Location: [facility] [place] Status: Signed Intake Vital Signs10/01/17 Height 5 ft 2 in 10/01/17 Weight: 121 lb 2 oz 10/01/17 Body Mass Index (BMI) 22.1 10/01/17 Blood Pressure 118/78 Intake Visit Reasons: NOB- LMP 08/03 Chief Complaint: NEW OB Inking Machine Tender Required: No Is patient in pain?: No Allergies No Known Allergies Allergy (Verified 10/01/17 09:25) Medications vitamin,calcium,nlttyaut-pzas-ajsyr acid tablet 1 tab PO QDAY 10/01/17 [History Confirmed 10/01/17] Last Menstral Period: 08/03/17 Zika: Zika virus screening: Negative : No PFSH PFSH Medical History Anxiety (Acute) Surgical History History of tonsillectomy (Acute) Social History Smoking Status: Never smoker alcohol intake: current details: pre substance use type: does not use caffeine: Yes what type of physical activity do you participate in: none seatbelt use: always do you feel safe at home: Yes additional social history: Patient works at [employer] History 1 Elective abortions Hx Para Spontaneous abortions HPI NOB- LMP 08/03: Details: MICHAELA LOBATO is a 27 year old who presents for New OB visit. OB Visit TORO Calculator Estimated Delivery Date 05/10/18 Based on LMP (certain) 08/03/17 Current WG 8w 3d Number 1 Comments: fht 189 1.73 cm crl iup Expected Delivery Route/Plan Specific Issue/Plans flu vaccine: [] minichart given: [] tdap vaccine: [] rhogam: [] LARC form signed: [] labor support person: [] pain management: [] cut cord/dad catch: [] : [] PP control planned: [] special requests: [] Menstrual History Last Menstral Period: 08/03/17 Reported LMP: definite Normal amount/duration: Yes On hormonal BC at conception: No Antepartum Record Genetic Screening: Congenital Heart Defect: Other, Neural Tube Defect: Other, Hemoglobinopathy Or Carrier: Other, Cystic Fibrosis: Other, Chromosome Abnormality: Other, Arturo-Sachs: Other, Hemophilia: Other, Intellectual Disability/Autism: Other, Recurrent Loss/Stillbirth: Other, Other Structural Defect: Other, Other Genetic Disease: Other, Maternal Metabolic Disorder: Other Infection History: Live with someone with TB or Exposed to TB: No, Patient or Partner has history of Genital Herpes: No, Rash or Viral illness since last mentrual period: No, Prior GBS-Infected child: No, History of STD: No, HIV Infection: No, History of Hepatitis: No, Recent travel outside of [place]: No, Concern for Hep exposure: No, Varicella immune: Yes Medical History Medical History: Positive: Psychiatric (anxiet- paxil in past), Negative: Diabetes, Hypertension, Heart disease, Auto-immune disorder, Kidney disease/UTI, Neurologic/epilepsy, Depression/ depression, Hepatitis/liver disease, Varicosities/phlebitis, Thyroid dysfunction, Trauma/domestic violence, History of blood transfusions, D (Rh) Sensitized, Pulmonary (e.g.,TB,Asthma), Seasonal allergies, Drug/latex allergies/reactions, Breast, Linotypist surgery, Operations/hospitalizations, Anesthetic complications, History of abnormal pap, Uterine anomaly/terrie, Infertility, Anti-retroviral treatment, Relevant family history, Other ACOG First Trimester First Trimester: Desire for , Alcohol, Tobacco Cessation, Illicit/Recreational Drug/Substance Use, Intimate Partner Violence, Barriers to care, Unstable Housing, Communication Barriers, Environmental/Work Hazards, Anticipated Course of Care, Nurtrition and weight gain, Toxoplasmosis Precations, Use of Any medications, Sexual activity, Exercise, Dental Care, Sauna/Hot tub use, Seat Belt use, Childbirth classes/Hospital facilities, , Travel, Indications for US and Screening for Aneuploidy ROS Const Denies fever(s), Reports system reviewed and no additional complaints, except as docu, Reports fatigue Eyes Reports system reviewed and no additional complaints, except as docu ENT Reports system reviewed and no additional complaints, except as docu Card Denies chest pain, Denies shortness of breath Resp Reports system reviewed and no additional complaints, except as docu, Denies shortness of breath, Denies cough GI Reports nausea, Denies abdominal pain Reports system reviewed and no additional complaints, except as docu Musc Reports system reviewed and no additional complaints, except as docu Skin/Breast Reports system reviewed and no additional complaints, except as docu Neuro Yes system reviewed and no additional complaints, except as docu Psych Reports system reviewed and no additional complaints, except as docu Endo Reports fatigue, Reports system reviewed and no additional complaints, except as docu Exam Const General: healthy appearing, comfortable, no acute distress Orientation: alert [facility] Head: normal to inspection, atraumatic, normocephalic Ears: external ears normal, hearing grossly normal bilaterally Nose: nares normal, external nose normal Mouth: oral mucosae normal Teeth and gingiva: dentition normal Eyes General: appearance normal, both eyes and all related structures Neck Neck: no lymphadenopathy, supple, normal visual inspection Thyroid: thyroid normal Resp Effort AND Inspection: normal respiratory effort GI Inspection: normal to inspection Palpation: soft, no hepatosplenomegaly General: bladder normal to palpation External Female Exam: normal external appearance, normal appearance of the urethra Urethra: normal appearance of the urethra Speculum Exam - Vagina: normal appearance of the vagina, normal vaginal discharge Speculum Exam - Cervix: normal appearance of the cervix Bimanual Exam- Vagina AND Uterus: bladder normal to palpation, normal bimanual exam, uterus non-tender, other Bimanual Exam- Adnexa, other: adnexae non-tender Skin General: no rashes or lesions noted Neuro Motor: muscle tone normal throughout, no movement abnormalities noted Extrem General: normal to inspection, full ROM Assessment AND Plan Problems 1. Encounter for supervision of normal first in first trimester Z34.01 TORO 05/10/18 [place] Plan Patient oriented to practice and discussed care expectations and screenings. [facility] [place]. labs and 19-20 week anatomy ultrasound ordered. see problem list details for plan information. Genetic screening offered to patient and patient chose: discussed considering NIPT Orders Orders: Medications Discontinued: naproxen Discontinued Reason: Order Co500 mg PO BID Betsy Romano mpleted cyclobenzaprine Discontinued Reason: O10 mg PO TID PRN Muscle Spasm Betsy Romano rder Completed Supplemental Info [facility] [place] and patient encouraged to read about nutrition, exercise, weight gain, and food avoidance in . Coding Level of Care Code OB Routine Diagnoses Encounter for supervision of normal first in first trimester Z34.01 Normal : normal first Trimester: first trimester 10/01/17 1020 <Electronically signed by Kelley Benz MD> Date Kelley Benz MD Cosigner Signature: Date (if applicable) CC: ALLERGIES ALLERGIES DATE TYPE / CODE NAME / CODE REACTION SEVERITY SOURCE 11/06/2017 Drug No Known Unknown [facility] Allergy/4160 Allergies/F00 [facility] 37125(SNOMED [id number](RXNOR Repository CT) M) ENCOUNTERS ENCOUNTERS ADMIT/DISCHARGE ACCOUNT ADMITTING ENCOUNTER LOCATION SOURCE NUMBER CLASS 04/10/2018 [id number] Ambulatory [place] [address] [facility] Hospital ing:LAB Repository 04/08/2018 [id number] Ambulatory Kate[place] [address] [facility] Hospital ing:LAB Repository 02/16/2018/ [id number] [place] 3 [facility] ing:ED Repository 12/24/2017 [id number] Ambulatory [facility]:B [place] [facility] Repository 11/26/2017 [id number] Ambulatory [facility]:B [place] [facility] Repository 11/17/2017 [id number] Ambulatory Katie [place] 8 [facility] ing:LAB Repository 11/13/2017 [id number] [place] [facility] ing:LAB Repository 11/07/2017 [id number] Ambulatory [place] 6 [facility] ing:LABSPEC Repository 11/06/2017/ [id number] [place] 0 [facility] ing:ED Repository 10/29/2017/ [id number] Ambulatory B[facility]Building:B [place] [facility] 6 [facility] Repository 10/13/2017 [id number] [place] 4 [facility] ing:LAB Repository 10/01/2017 [id number] Ambulatory [place] 7 [facility] ing:LABSPEC Repository 10/01/2017/ [id number] Ambulatory BMSBuilding:B [place] 8 3 [facility] Repository PAYERS PAYERS ENCOUNTER GUARANTOR PAYER SUBSCRIBER SOURCE 04/10/2018 MICHAELA Louie Primary NOT GIVENUNK [place] [id number] [place]ATER Insurance:SELF PAY [facility] [id number]: ([phone]) Number: Effective Repository [phone] () Date:2018-04-10 04/08/2018 MICHAELA A Primary NOT GIVENUNK [place] [id number] [place] Insurance:SELF PAY [facility] [id number]: (330) Number: Effective Repository [phone] (HP) Date:2018-04-08 02/16/2018 MICHAELA Louie Primary NOT GIVENUNK [place] [id number] WATER Insurance:SELF PAY [facility] [id number]: (330) Number: Effective Repository [phone] (HP) Date:2018-02-16 12/24/2017 MICHAELA SORENSON Primary NOT GIVENUNK [place] [id number] [place] Insurance:SELF PAY [facility] [id number]: (330) Number: Effective Repository [phone] () Date:2017-10-01 11/26/2017 MICHAELA SORENSON Primary NOT GIVENUNK [place] [id number] WATER Insurance:SELF PAY [place] [id number]: [phone]) Number: Effective Repository [phone] () Date:2017-10-01 11/17/2017 MICHAELA Louie Primary NOT GIVENUNK [place] [id number] WATER Insurance:SELF PAY [facility] [id number]: (330) Number: Effective Repository [phone] () Date:2017-11-17 11/13/2017 MICHAELA Louie Primary NOT GIVENUNK [place] [id number] WATER Insurance:SELF PAY [facility] [id number]: (330) Number: Effective Repository [phone] () Date:2017-11-13 11/07/2017 MICHAELA SORENSON Primary NOT GIVENUNK [place] [id number] WATER Insurance:SELF PAY [facility] [id number]: ([phone]) Number: Effective Repository [phone] () Date:2017-11-07 11/06/2017 MICHAELA SORENSON Primary NOT GIVENUNK [place] [id number] [place] Insurance:SELF PAY [facility] [id number]: (330) Number: Effective Repository [phone] () Date:2017-11-06 10/29/2017 MICHAELA SORENSON Primary NOT GIVENUNK [place] [id number] WATER Insurance:SELF PAY [facility] [id number]: (330) Number: Effective Repository [phone] () Date:2017-10-29 10/13/2017 MICHAELA SORENSON Primary NOT GIVENUNK [place] [id number] [place] Insurance:SELF PAY [facility] [id number]: (330) Number: Effective Repository [phone] () Date:2017-10-13 10/01/2017 MICHAELA SORENSON Primary NOT GIVENUNK [place] [id number] [place] Insurance:SELF PAY [facility] [id number]: ([phone]) Number: Effective Repository [phone] () Date:2017-10-01 10/01/2017 MICHAELA SORENSON Primary NOT GIVENUNK [place] [id number] [place] Insurance:SELF PAY [facility] [id number]: ([phone]) Number: Effective Repository [phone] () Date:2017-10-01
== END ==
LOC: LAB 15:53
PROVIDERS: Family Provider Family Medicine; PCP Family Medicine; Referring Provider Nurse Practitioner Women's Health; Visit Provider Nurse Practitioner Women's Health
DX: Z34.90 Encounter for supervision of normal pregnancy, unspecified, unspecified trimester (principal)
CPT/HCPCS: 36415; 84702

== ENCOUNTER → 2018-04-10 12:08 | Outpatient (CLI) | payer SELFPAY ==
[2018-04-10 13:07] LABS: hCG Titer Quant., Serum 326 mIU/mL (<9 non-preg)
--- OUTSIDE RECORDS SUMMARY | 2018-06-15 01:30 | XMS RPT_ITS ---
:1990 Author Organization [facility] Support Name Relationship Address Phone SOCRATES LOBATO Unavailable [address] + [place] [address] [facility] Unavailable [address] + [place] [address] HELADARSH GONZALEZSHUA Unavailable [address] + [place] [address] [facility] Unavailable [address] + [place] [address] HELMS, SOCRATES Unavailable [address] + [place] [address] [facility] Unavailable [address] + [place] [address] HELMS, SOCRATES Unavailable [address] + [place] [address] [facility] Unavailable [address] + [place] [address] HELMS, SOCRATES Unavailable [address] + [place] [address] [facility] Unavailable [address] + [place] [address] HELMS, SOCRATES Unavailable [address] + [place] [address] [facility] Unavailable [address] + [place] [address] HELMS, SOCRATES Unavailable [address] + [place] [address] [facility] Unavailable [address] + [place] [address] HELMS, SOCRATES Unavailable [address] + [place] [address] [facility] Unavailable [address] + [place] [address] HELMS, SOCRATES Unavailable [address] + [place] [address] [facility] Unavailable [address] + [place] [address] CLARK LOBATOUA Unavailable [address] + [place] [address] [facility] Unavailable . + [place] [address] ADARSH LOBATOSHUA Unavailable [address] + [place] [address] [facility] Unavailable [address] + [place] [address] ADARSH LOBATOSHUA Unavailable [address] + [place] [address] [facility] Unavailable . + [place] [address] ADARSH LOBATOSHUA Unavailable [address] + [place] [address] [facility] Unavailable Unavailable + [place] [address] [facility] Unavailable Unavailable + [place] [address] Care Team Providers Name Role Phone Millie [...] Primary Care Unavailable Chuck Gamez Attending Unavailable MarcanthonyKellye Attending Unavailable Schinner, Graeme E Referring Unavailable [...] 12/12/2017 Unknown O03.9 - Complete Tuyet, Active [place] or unspecified [facility] spontaneous Hospital without Repository complication / O03.9(ICD-10) 11/06/2017 Unknown Z34.90 - Encounter Tuyet, Active [place] for supervision of [facility] normal , Hospital unspecified, Repository unspecified trimester / Z34.90(ICD-10) 10/01/2017 Unknown Z34.01 - Encounter Tuyet, Active [place] for supervision of [facility] normal first Hospital , first Repository trimester / Z34.01(ICD-10) PROCEDURES PROCEDURES No Procedure Records FoundRESULTS RESULTS HCG TITER QUANT., Collected: 04/10/2018 Status: F Source: [place] SERUM 12:17 PM [facility] REPOSITORY Order Comment: Date of Last Menstrual Period? 03/10/18 TYPE CODE TESTS RESULT OUT OF RANGE REFERENCE UNITS LAB L700.8000 <9 non-preg mIU/mL High HCG 326 QUANT. Performed By: #### L700.8000 #### [facility] [address] [place], [address] HCG TITER QUANT., Collected: 04/08/2018 Status: F Source: [place] SERUM 3:57 PM [facility] REPOSITORY TYPE CODE TESTS RESULT OUT OF RANGE REFERENCE UNITS LAB L700.8000 <9 non-preg mIU/mL High HCG 135 QUANT. Performed By: #### L700.8000 #### [facility] [address] [place], [address] EMERGENCY DEPARTMENT Observed: 02/16/2018 Status: F Source: [place] SUMMARY 11:48 AM [facility] REPOSITORY [facility] Medical Records Department [address] [place] [address] Emergency Department Summary 02/16/18 1027 MR#: [id number] Acct: [id number] Name: MICHAELA LOBATO Rep #: [id number] : 1990 27 From: Kavin Boyle MD [...] valve prolapse This note was generated with [employer] dictation software. It may contain incorrect words, [...] your Primary Care Provider. Call [facility] ([phone]) or report to the closest Emergency Room. Call 911 if necessary. 02/16/18 1148 <Electronically signed by Kavin Boyle MD> Date Kavin Boyle MD Cosigner Signature (If Indicated): Date CC: Graeme Mnedoza MD CHEST PA AND LATERAL Observed: 02/16/2018 Status: F Source: [place] 10:21 AM [facility] REPOSITORY [facility] Imaging Services [address] [place] [address] Chest PA and Lateral MR#: [id number] Acct: [id number] Name: MICHAELA LOBATO Rep #: [id number] : 1990 F 27 From: Fritz Mckinley MD PCP: Graeme Mendoza MD Status: PRE ER Study: Chest PA and Lateral Date of Exam: 02/16/18 Exam# [id number] Ordering Dr: Kavin Boyle MD STUDY: X-RAY [...] Fritz Mckinley MD at 10:45 EST Tel [phone], Service support , CC: Graeme Mendoza MD; Kavin Boyle MD Toe Trimmer: Signed THYROID STIM HORMONE Collected: 11/17/2017 Status: F Source: [place] (TSH) 12:23 PM [facility] REPOSITORY TYPE CODE TESTS RESULT OUT OF RANGE REFERENCE UNITS LAB L501.9520 0.358-3.74 uIU/mL Normal TSH 1.95 Performed By: #### L501.9520, L801.1541 #### [facility] [place], [address] MISCELLANEOUS LAB Collected: 11/17/2017 Status: F Source: [place] PROCEDURE 12:23 PM [facility] REPOSITORY Order Comment: Comments: ANTIPHOSPHOLIPID AB [id number] PLASMA/FZ SER/RT Comments: Antiphosolipid Antibody Test(s) Ordered: ANTIPHOSPHOLIPID AB [id number] PLASMA/FZ SER/RT TYPE CODE TESTS RESULT OUT OF RANGE REFERENCE UNITS LAB L801.1541 Normal [facility] LAB TEST Result Comment: TEST RESULT UNITS [...] APS- antiphospholipid syndrome; DTI-direct thrombin inhibitors. - DEPORTATION EXAMINER: For questions regarding panel interpretation, please contact Charanjit Hilliard M.D. at [facility] at . DISCLAIMER These assessments and [...] Kirby et al. J Thromb Haemost. 2009; 7(10):8657-4151. (2) Dillon S et al. J Thromb Haemost. 2006;4(2):295-306. (3) Justin DA et al. Blood. 2007;110(9): 7715-2277. TESTING PERFORMED AT [facility]. ORIGINAL REPORT ON FILE IN LAB CONTAINS ADDITIONAL TEST SITE INFORMATION. Performed By: #### L501.9520, L801.1541 #### [facility] [address] [place], [place], [address] PRODUCTS OF CONCEPTION Observed: 11/07/2017 Status: F Source: [place] 10:10 AM [facility] REPOSITORY Patient: MICHAELA LOBATO : 1990 (27/F) Acct Num: [id number] Phys: Tuyet BUCKNER,Kelley Unit Num: [id number] Loc: LABSPEC Specimen: [id number] Received: 11/07/17 - 1034 Spec Type: PROD [...] the placenta does not reveal mass lesions. Roll Slicing Machine Tender sections are submitted in three cassettes as follows: 1 portions of fetus, 2 umbilical cord and placental membranes, 3 placental disc. / AM:janis 11/07/17 TC:5 CPT: 63392 HEADER OPERATION: Missed PRE-OP DIAGNOSIS: Miscarriage TISSUE SUBMITTED: Fetus, placenta MICROSCOPIC DESCRIPTION Slides are reviewed. MICROSCOPIC DIAGNOSIS Fetus and placenta: Macerated fetus and immature placental tissue (products of conception). SJ:janis 11/10/17 Signed Alvin Freeman 11/10/17 <signature on file> Performed By: #### PPOC #### [facility] [address] [place], [address] EMERGENCY DEPARTMENT Observed: 11/06/2017 Status: F Source: [place] SUMMARY 8:20 AM [facility] REPOSITORY [facility] Medical Records Department [address] [address] [address] Emergency Department Summary 11/06/17 0819 MR#: [id number] Acct: [id number] Name: MICHAELA LOBATO Rep #: [id number] : 1990 27 From: Chuck Gamez MD [...] your Primary Care Provider. Call [facility] ([phone]) or report to the closest Emergency Room. Call 911 if necessary. 11/06/17 08 <Electronically signed by Chuck Gamez MD> Date Chuck Gamez MD Cosigner Signature (If Indicated): Date CC: Graeme Mendoza MD EMERGENCY DEPARTMENT Observed: 11/06/2017 Status: F Source: [place] SUMMARY 4:42 AM [facility] REPOSITORY [facility] Medical Records Department [address] [facility] [place] [address] Emergency Department Summary 11/06/17 0433 MR#: [id number] Acct: [id number] Name: MICHAELA LOBATO DELTA Rep #: [id number] : 1990 27 From: Rogelio Meza MD [...] need RhoGam. She will follow-up with her MANAGER BUDGET. Morning will check the ultrasound Treatment Plan: [] Disposition: [] Impression: [] Vaginal bleeding in first trimester This note was generated with [employer] dictation software. It may contain incorrect words, [...] your Primary Care Provider. Call [facility] ([phone]) or report to the closest Emergency Room. Call 911 if necessary. 11/06/17 0442 <Electronically signed by Rogelio Meza MD> Date Rogelio Meza MD Cosigner Signature (If Indicated): Date CC: Graeme Mendoza MD OB LIMITED WITH Observed: 11/06/2017 Status: F Source: [place] BIOMETRICS 4:33 AM [facility] REPOSITORY [facility] Imaging Services [address] [place] [address] OB Limited With Biometrics MR#: [id number] Acct: [id number] Name: MICHAELA LOBATO Rep #: [id number] : 1990 F 27 From: Sinan Quinones MD PCP: Graeme Mendoza MD Status: REG ER Study: OB Limited With Biometrics Date of Exam: 11/06/17 Exam# [id number] Ordering Dr: Rogelio Meza MD STUDY: SECOND [...] CC: Graeme Mendoza MD; Rogelio Meza MD Toe Trimmer: Signed MANAGER BUDGET OFFICE VISIT Observed: 10/29/2017 Status: F Source: [place] REPORT 1:25 PM [facility] [address] [place] [address] OFFICE VISIT Date of Service: 10/29/17 MR#: [id number] Acct: [id number] Name: MICHAELA LOBATO Rep #: [id number] : 1990 Provider: JENNIFER James Age/Sex: 27/F Location: [facility] Status: Signed Intake Vital Signs10/29/17 Height 5 ft 2 in 10/29/17 Weight: 126 lb 10/29/17 Body Mass Index (BMI) 23.0 10/29/17 Blood Pressure 134/79 Intake Visit Reasons: 12 weeks Reiki Practitioner Required: No Is patient in pain?: No Allergies No Known Allergies Allergy (Verified 10/29/17 13:03) Medications vitamin,calcium,icdyfoqz-cayb-ofkio acid tablet 1 tab PO QDAY 10/01/17 [...] Yes additional social history: Patient works at [employer] Pregancy History 1 Elective abortions Hx Para [...] Status: F Source: [place] PROCEDURE 3:49 PM [facility] REPOSITORY Order Comment: Test(s) Ordered: PANORAMA TESTING TYPE CODE TESTS RESULT OUT OF RANGE REFERENCE UNITS LAB L801.1541 Normal [facility] LAB TEST Result Comment: Sent directly to testing facility per ordering physician. 11/03/17 0924 MYOUNG Performed By: #### L801.1541 #### [facility] [address] [place], [address] CBC W/DIFF, AUTOMATED Collected: 10/13/2017 Status: F Source: [place] 3:48 PM [facility] REPOSITORY TYPE CODE TESTS RESULT OUT OF [...] 2.65 Performed By: #### L100.0100, B101.7450 #### [facility] [address] [place], [address] #### L3100.0390 #### [facility] (refer to report for specific site) refer to report for address and phone number TYPE AND SCREEN Collected: 10/13/2017 Status: F Source: [place] 3:48 PM [facility] REPOSITORY Order Comment: Reason for Type AND Screen/Red Cells: TYPE CODE TESTS RESULT OUT OF RANGE REFERENCE UNITS LAB B10.0800 O Normal BLOOD TYPE GEL POSITIVE LAB B100.4000 Normal Antibody NEGATIVE Screen Performed By: #### L100.0100, B101.7450 #### [facility] [address] [place], [address] #### L3100.0390 #### [facility] (refer to report for specific site) refer to report for address and phone number HEPATITIS B SURFACE Collected: 10/13/2017 Status: F Source: [place] AG 3:48 PM [facility] REPOSITORY TYPE CODE TESTS RESULT OUT OF RANGE REFERENCE UNITS LAB L3100.0400 Negative Normal HB Negative SURF AG Result Comment: Performed at: - [facility] [id number] Division Controller: Mychal Fair PhD, Phone: [phone] Performed By: #### L100.0100, B101.7450 #### [facility] [address] [place] [address]. [facility] [address] #### L3100.0390 #### [facility] (refer to report for specific site) refer to report for address and phone number RUBELLA IGG Collected: 10/13/2017 Status: F Source: [place] 3:48 PM [facility] REPOSITORY TYPE CODE TESTS RESULT OUT OF RANGE REFERENCE UNITS LAB L509.4000 IU/mL Normal Rubella IgG 279.6 Result Comment: Antibody results Interpretation of Immune Status < 5 IU/ml Presumed Non-immune 5 - < 10 IU/ml Equivocal > or = 10 IU/ml Presumed Immune Performed By: #### L509.4000, L3890.6005, L700.5000 #### [facility] [address] [place], [place] [address]. [facility] [address] HIV - WCH Collected: 10/13/2017 Status: F Source: [place] 3:48 PM [facility] REPOSITORY TYPE CODE TESTS RESULT OUT OF RANGE REFERENCE UNITS LAB L3890.6005 Nonreactive Normal HIV - [facility] Non-Reactive Performed By: #### L509.4000, L3890.6005, L700.5000 #### [facility] [address] RAPID PLASMIN REAGIN Collected: 10/13/2017 Status: F Source: [place] (RPR) 3:48 PM [facility] REPOSITORY TYPE CODE TESTS RESULT OUT OF REFERENCE UNITS RANGE LAB L700.5000 NONREACTIVE NONREACTIVE Normal RPR Performed By: #### L509.4000, L3890.6005, L700.5000 #### [facility] [address] [place], [address] CT/NG WCH BY PCR Collected: 10/01/2017 Status: F Source: [place] 5:27 PM [facility] REPOSITORY TYPE CODE TESTS RESULT OUT OF RANGE REFERENCE UNITS LAB L8200.2100 Negative Normal Chlam Negative Trac PCR LAB L8200.2200 Negative Normal NG by Negative PCR Performed By: #### L8200.1999, M100.0650 #### [facility] [address] [place], [address] Observed: 10/01/2017 Status: F Source: [place] CULTURE, URINE 5:27 PM [facility] REPOSITORY Urine Culture Culture exhibits no growth. Performed By: #### L8200.1999, M100.0650 #### [facility] [address] [place], [address] MANAGER BUDGET OFFICE VISIT Observed: 10/01/2017 Status: F Source: [place] REPORT 10:20 AM [facility] REPOSITORY [facility] [address] [place] [address] OFFICE VISIT Date of Service: 10/01/17 MR#: [id number] Acct: [id number] Name: MICHAELA LOBATO DELTA Rep #: [id number] : 1990 Provider: Kelley Benz MD Age/Sex: 27/F Location: [facility] Status: Signed Intake Vital Signs10/01/17 Height 5 ft 2 in 10/01/17 Weight: 121 lb 2 oz 10/01/17 Body Mass Index (BMI) 22.1 10/01/17 Blood Pressure 118/78 Intake Visit Reasons: NOB- LMP 08/03 Chief Complaint: NEW OB Reiki Practitioner Required: No Is patient in pain?: No Allergies No Known Allergies Allergy (Verified 10/01/17 09:25) Medications vitamin,calcium,ewabqlma-dgys-cmlcz acid tablet 1 tab PO QDAY 10/01/17 [...] Yes additional social history: Patient works at [employer] Pregancy History 1 Elective abortions Hx Para [...] Pulmonary (e.g.,TB,Asthma), Seasonal allergies, Drug/latex allergies/reactions, Breast, Fire Control Officer surgery, Operations/hospitalizations, Anesthetic complications, History of abnormal [...] appearing, comfortable, no acute distress Orientation: alert [facility] Head: normal to inspection, atraumatic, normocephalic Ears: [...] practice and discussed care expectations and screenings. [facility] book offered to patient. labs and 19-20 week anatomy ultrasound ordered. see problem list details for plan information. Genetic screening offered to patient and patient chose: discussed considering NIPT Orders Orders: Medications Discontinued: naproxen Discontinued Reason: Order Co500 mg PO BID Betsy Romano mpleted cyclobenzaprine Discontinued Reason: O10 mg PO TID PRN Muscle Spasm Betsy Romano rder Completed Supplemental Info [facility] book given and patient [...] No Known Unknown [facility] Allergy/4160 Allergies/F00 [facility] [address](SNOMED [id number](RXNOR Repository CT) M) ENCOUNTERS ENCOUNTERS ADMIT/DISCHARGE ACCOUNT ADMITTING ENCOUNTER LOCATION SOURCE NUMBER CLASS 04/10/2018 [id number] Ambulatory [place] 3 [facility] Hospital ing:LAB Repository 04/08/2018 [id number] Ambulatory [place] 4 [facility] Hospital ing:LAB Repository 02/16/2018/ [id number] Emergency [place] [facility]ED Repository 12/24/2017 [id number] Ambulatory BMSBuilding:B [place] 9 [facility] Repository 11/26/2017 [id number] Ambulatory BMSBuilding:B [place] 8 [facility] Repository 11/17/2017 [id number] [facility] [place] [facility] ing:LAB Repository 11/13/2017 [id number] Ambulatory [place] [facility] ing:LAB Repository 11/07/2017 [id number] Ambulatory [place] [facility] ing:[facility] Repository 11/06/2017/ [id number] Emergency [place] [facility] ing:ED Repository 10/29/2017/ [id number] Ambulatory BMSBuilding:B [place] 6 [facility] Hospital Repository 10/13/2017 [id number] Ambulatory [place] [facility] ing:LAB Repository 10/01/2017 [id number] Ambulatory [place] [facility] ing:[facility] Repository 10/01/2017/ [id number] Ambulatory BMSBuilding:B [place] 8 3 [facility] Repository PAYERS PAYERS ENCOUNTER GUARANTOR PAYER SUBSCRIBER SOURCE 04/10/2018 MICHAELA [place] Primary NOT GIVENUNK [place] [id number] [address] Insurance:SELF PAY [facility] [id number]: (244) Number: Effective Repository [phone] () Date:2018-04-10 04/08/2018 MICHAELA A Primary NOT GIVENUNK [place] [id number] [address] Insurance:SELF PAY [facility] [id number]: (330) Number: Effective Repository [phone] (HP) Date:2018-04-08 02/16/2018 MICHAELA [place] Primary NOT GIVENUNK [place] [id number] [address] Insurance:SELF PAY [facility] [id number]: (330) Number: Effective Repository [phone] (HP) Date:2018-02-16 12/24/2017 MICHAELA SORENSON Primary NOT GIVENUNK [place] [id number] [address] Insurance:SELF PAY [facility] [address]Ksh: (330) Number: Effective Repository [phone] () Date:2017-10-01 11/26/2017 MICHAELA SORENSON Primary NOT GIVENUNK [place] [id number] [address] Insurance:SELF PAY [place] [id number]: (330) Number: Effective Repository [phone] () Date:2017-10-01 11/17/2017 MICHAELA [place] Primary NOT GIVENUNK [place] [id number] [address] Insurance:SELF PAY [facility] [id number]: (330) Number: Effective Repository [phone] () Date:2017-11-17 11/13/2017 MICHAELA [place] Primary NOT GIVENUNK [place] [id number] [address] Insurance:SELF PAY [facility] [id number]: (330) Number: Effective Repository [phone] () Date:2017-11-13 11/07/2017 MICHAELA SORENSON Primary NOT GIVENUNK [place] [id number] [place] Insurance:SELF PAY [facility] [id number]: (330) Number: Effective Repository [phone] () Date:2017-11-07 11/06/2017 MICHAELA SORENSON Primary NOT GIVENUNK [place] [id number] [place] Insurance:SELF PAY [facility] [id number]: (330) Number: Effective Repository [phone] () Date:2017-11-06 10/29/2017 MICHAELA SORENSON Primary NOT GIVENUNK [place] [id number] [place] Insurance:SELF PAY [facility] [id number]: (330) Number: Effective Repository [phone] () Date:2017-10-29 10/13/2017 MICHAELA SORENSON Primary NOT GIVENUNK [place] [id number] [place] Insurance:SELF PAY [facility] [id number]: (330) Number: Effective Repository [phone] () Date:2017-10-13 10/01/2017 MICHAELA SORENSON Primary NOT GIVENUNK [place] [id number] [place] Insurance:SELF PAY [facility] [id number]: ([phone]) Number: Effective Repository [phone] () Date:2017-10-01 10/01/2017 MICHAELA SORENSON Primary NOT GIVENUNK [place] [id number] [place] Insurance:SELF PAY [facility] [id number]: (330) Number: Effective Repository [phone] () Date:2017-10-01
== END ==
LOC: LAB 12:09
PROVIDERS: Family Provider Family Medicine; PCP Family Medicine; Referring Provider Nurse Practitioner Women's Health; Visit Provider Nurse Practitioner Women's Health
DX: Z34.90 Encounter for supervision of normal pregnancy, unspecified, unspecified trimester (principal)
CPT/HCPCS: 36415; 84702

== ENCOUNTER → 2018-05-11 17:52 | Outpatient (CLI) | payer MEDICAID, SELFPAY ==
[2018-05-11 13:08] VITALS: BMI 22.9
[2018-05-11 21:21] LABS: Chlamydia Trachomatis by PCR Negative (Negative); Neisserai gonorrhoeae by PCR Negative (Negative); Probe Check PASS; Sample Adequacy Control PASS; Specimen Processing Control PASS
== END ==
PROVIDERS: Family Provider Family Medicine; PCP Family Medicine; Visit Provider Obstetrics & Gynecology
DX: Z34.90 Encounter for supervision of normal pregnancy, unspecified, unspecified trimester (principal)
CPT/HCPCS: 87077; 87086; 87088; 87186; 87491; 87591

== ENCOUNTER → 2018-05-15 15:10 | Outpatient (CLI) | payer MEDICAID, SELFPAY ==
[2018-05-11 13:08] VITALS: BMI 22.9
[2018-05-15 16:09] LABS: Absolute Lymphocyte Count 2.19 X10^3/ul (0.83-4.51); Absolute Neutrophil Count 5.3 X10^3/uL (2.0-7.7); Basophil# 0.03 X10^3/uL; Basophil% 0.4 % (0-1); Eosinophil# 0.07 X10^3/uL; Eosinophils% 0.8 % (0-5); Hematocrit 35.6 % (37-47); Hemoglobin 12.2 g/dl (12.0-15.0); Lymphocyte # 2.19 X10^3/ul (4.0); Lymphocyte % 25.9 % (19-41); Mean Corp Hgb Conc 34.3 g/gl (32-36); Mean Corpuscular Hgb 30.4 pg (27.0-32.0); Mean Corpuscular Volume 88.8 fL (81-99); Mean Platelet Vol. 11.2 fl (6.2-12.0); Monocyte# 0.88 X10^3/uL; Monocyte% 10.4 % (0-10); Neutrophil # 5.27 X10^3/uL (2.7-7.7); Neutrophil % 62.4 % (47-70); Platelet Count 213 K/mm3 (150-450); RBC Distribution Width CV 12.1 % (11.6-14.6); RBC Distribution Width SD 38.9 fl (35.1-43.9); Red Blood Count 4.01 M/mm3 (4.2-5.4); White Blood Count 8.5 K/mm3 (4.4-11.0)
[2018-05-15 16:10] LABS: POSITIVE COUNT NO; POSITIVE DIFFERENTIAL NO; POSITIVE MORPHOLOGY NO
[2018-05-15 17:29] LABS: HIV - WCH Non-Reactive (Nonreactive); Rubella IgG 305.4 IU/mL
[2018-05-18 14:55] LABS: HEPATITIS B SURFACE AG Negative (Negative)
[2018-05-22 03:11] LABS: Rapid Plasmin Reagin (RPR) NONREACTIVE (NONREACTIVE)
== END ==
PROVIDERS: Family Provider Family Medicine; PCP Family Medicine; Referring Provider Obstetrics & Gynecology; Visit Provider Obstetrics & Gynecology
DX: Z34.90 Encounter for supervision of normal pregnancy, unspecified, unspecified trimester (principal)
CPT/HCPCS: 36415; 85025; 86592; 86703; 86762; 86850; 86900; 87340

== ENCOUNTER → 2018-05-25 15:08 | Outpatient (CLI) | payer MEDICAID, SELFPAY ==
[2018-05-25 10:39] VITALS: BMI 22.9
== END ==
PROVIDERS: Family Provider Family Medicine; PCP Family Medicine; Referring Provider Obstetrics & Gynecology; Visit Provider Obstetrics & Gynecology
DX: O23.40 Unspecified infection of urinary tract in pregnancy, unspecified trimester (principal); Z3A.00 Weeks of gestation of pregnancy not specified
CPT/HCPCS: 87086

== ENCOUNTER → 2018-07-03 | Outpatient (CLI) | payer MEDICAID, SELFPAY ==
[2018-06-22 09:21] VITALS: BMI 25.0
== END | disposition home or self-care (01) ==
PROVIDERS: Family Provider Family Medicine; PCP Family Medicine; Referring Provider Obstetrics & Gynecology; Visit Provider Obstetrics & Gynecology
DX: O23.40 Unspecified infection of urinary tract in pregnancy, unspecified trimester (principal); O26.899 Other specified pregnancy related conditions, unspecified trimester; R10.2 Pelvic and perineal pain; Z3A.00 Weeks of gestation of pregnancy not specified
CPT/HCPCS: 87086; 87088

== ENCOUNTER → 2018-09-15 | Outpatient (CLI) | payer MEDICAID, SELFPAY ==
[2018-08-18 15:28] VITALS: BMI 25.0
[2018-09-15 15:19] LABS: Glucose Challenge Gest 1H 50g 150 mg/dL (70-140)
[2018-09-15 15:20] LABS: Absolute Lymphocyte Count 1.67 X10^3/ul (0.83-4.51); Absolute Neutrophil Count 8.5 X10^3/uL (2.0-7.7); Basophil# 0.02 X10^3/uL; Basophil% 0.2 % (0-1); Eosinophil# 0.02 X10^3/uL; Eosinophils% 0.2 % (0-5); Hemoglobin 11.8 g/dl (12.0-15.0); Lymphocyte # 1.67 X10^3/ul (4.0); Lymphocyte % 15.1 % (19-41); Mean Corp Hgb Conc 33.7 g/gl (32-36); Mean Corpuscular Hgb 30.5 pg (27.0-32.0); Mean Corpuscular Volume 90.4 fL (81-99); Mean Platelet Vol. 11.2 fl (6.2-12.0); Monocyte# 0.82 X10^3/uL; Monocyte% 7.4 % (0-10); Neutrophil # 8.54 X10^3/uL (2.7-7.7); Neutrophil % 76.9 % (47-70); Platelet Count 212 K/mm3 (150-450); RBC Distribution Width SD 42.5 fl (35.1-43.9); Red Blood Count 3.87 M/mm3 (4.2-5.4); White Blood Count 11.1 K/mm3 (4.4-11.0)
[2018-09-15 15:24] LABS: POSITIVE COUNT NO; POSITIVE DIFFERENTIAL NO; POSITIVE MORPHOLOGY NO
== END | disposition home or self-care (01) ==
LOC: PAVLAB 14:51
PROVIDERS: Family Provider Family Medicine; PCP Family Medicine; Referring Provider Obstetrics & Gynecology; Visit Provider Obstetrics & Gynecology
DX: Z34.90 Encounter for supervision of normal pregnancy, unspecified, unspecified trimester (principal)
CPT/HCPCS: 36415; 82950; 85025

== ENCOUNTER → 2018-09-21 | Outpatient (CLI) | payer MEDICAID, SELFPAY ==
[2018-09-15 15:37] VITALS: BMI 25.0
[2018-09-21 11:34] LABS: Glucose GTT-Gestation. Fasting 80 mg/dL (<105)
[2018-09-21 12:40] LABS: Glucose GTT-Gestational 2 Hr 125 mg/dL (<165)
[2018-09-21 12:43] LABS: Glucose GTT-Gestational 1 Hr 128 mg/dL (<190)
[2018-09-21 13:35] LABS: Glucose GTT-Gestational 3 Hr 130 L (<145)
== END | disposition home or self-care (01) ==
LOC: LAB 10:05
PROVIDERS: Family Provider Family Medicine; PCP Family Medicine; Referring Provider Obstetrics & Gynecology; Visit Provider Obstetrics & Gynecology
DX: O99.810 Abnormal glucose complicating pregnancy (principal); Z3A.00 Weeks of gestation of pregnancy not specified
CPT/HCPCS: 36415; 82951; 82952

== ENCOUNTER → 2018-09-29 | Outpatient (CLI) | payer MEDICAID, SELFPAY ==
[2018-09-29 14:01] VITALS: BMI 25.0
== END | disposition home or self-care (01) ==
LOC: LABSPEC 16:56
PROVIDERS: Family Provider Family Medicine; PCP Family Medicine; Referring Provider Obstetrics & Gynecology; Visit Provider Obstetrics & Gynecology
DX: N89.8 Other specified noninflammatory disorders of vagina (principal)
CPT/HCPCS: 87070; 87205

== ENCOUNTER 2018-11-10 12:29 | Outpatient (CLI) | payer MEDICAID, SELFPAY ==
[2018-11-10 11:31] VITALS: BMI 30.2
[2018-11-10 11:59] LABS: Protein, Urine (Random) 12.2 mg/dL (<11.9); Protein:Creat Ratio 92 mg/g CRE (0-200)
[2018-11-10 12:57] VITALS: BMI 32.5
[2018-11-10 13:30] LABS: Absolute Lymphocyte Count 1.84 X10^3/uL (0.83-4.51); Absolute Neutrophil Count 9.3 X10^3/uL (2.0-7.7); Basophil# 0.03 X10^3/uL; Basophil% 0.2 % (0-1); Eosinophil# 0.03 X10^3/uL; Eosinophils% 0.2 % (0-5); Hematocrit 36.4 % (37-47); Hemoglobin 12.4 g/dL (12.0-15.0); Lymphocyte # 1.84 X10^3/ul (4.0); Mean Corp Hgb Conc 34.1 g/dL (32-36); Mean Corpuscular Hgb 31.2 pg (27.0-32.0); Mean Corpuscular Volume 91.5 fL (81-99); Mean Platelet Vol. 12.1 fl (6.2-12.0); Monocyte# 1.02 X10^3/uL; Monocyte% 8.3 % (0-10); NRBC Flagged by Analyzer 0 % (0-5); Neutrophil # 9.25 X10^3/uL (2.7-7.7); Neutrophil % 75.8 % (47-70); Platelet Count 169 K/mm3 (150-450); RBC Distribution Width CV 12.1 % (11.6-14.6); RBC Distribution Width SD 40.8 fl (35.1-43.9); Red Blood Count 3.98 M/mm3 (4.2-5.4); White Blood Count 12.2 K/mm3 (4.4-11.0)
[2018-11-10 14:09] LABS: ALB/GLOB Ratio 0.7 RATIO (0.9-2.4); AST(SGOT) 15 U/L (15-37); Alanine Aminotransfer ALT/SGPT 28 U/L (13-56); Albumin, Serum 2.5 g/dL (3.2-5.0); Alkaline Phosphatase 173 U/L (45-117); Anion Gap 8 (5-15); BUN 11 mg/dL (7-18); BUN/Creat Ratio 19.5 RATIO (10-20); Chloride 113 mmol/L (98-107); Creatinine, Serum 0.56 mg/dL (0.55-1.02); EST Glomerular Filtration Rate 137 mL/min (>60); Est Glom Filt Rate - Afr Amer 165 mL/min (>60); Estimated Creatinine Clearance 119.35 ml/min; Globulin 3.4 g/dL (2.2-4.2); Glucose 75 mg/dL (74-106); Potassium 4.1 mmol/L (3.5-5.1); Protein, Total 5.9 g/dL (6.4-8.2); Sodium Level 143 mmol/L (136-145)
--- NOTE | 2018-11-14 02:30 | OB.TRI.NOTE ---
- Problem List (1) Elevated blood pressure reading in office without diagnosis of hypertension Status: Acute History of Present Illness Date of Service: 11/10/18 Was patient seen by the physician?: Yes Reason For Visit: R/O PRE E History of Present Illness: Patient seen in the office for routine visit and was found to have mildly elevated blood pressures. Upon evaluation on labor and delivery she had normal blood pressures and normal labs and negative proteinuria Allergies No Known Allergies Allergy (Verified 11/12/18 13:50) - Pertinent Past Medical History Medical History: Past Medical History (Last Reviewed 11/12/18 @ 13:50 by Kala Jalloh) Anxiety Surgical History: Past Surgical History (Last Reviewed 11/12/18 @ 13:50 by Kala Jalloh) History of tonsillectomy Laboratory Studies: Laboratory Tests 11/10/18 11/10/18 11/10/18 Range/Units 13:20 13:20 11:41 WBC 12.2 H (4.4-11.0) K/mm3 RBC 3.98 L (4.2-5.4) M/mm3 Hgb 12.4 (12.0-15.0) g/dL Hct 36.4 L (37-47) % MCV 91.5 (81-99) fL MCH 31.2 (27.0-32.0) pg MCHC 34.1 (32-36) g/dL RDW Std Deviation 40.8 (35.1-43.9) fl RDW Coeff of Ajcobo 12.1 (11.6-14.6) % Plt Count 169 (150-450) K/mm3 MPV 12.1 H (6.2-12.0) fl Immature Gran % (Auto) 0.500 (0.0-0.9) % Neut % (Auto) 75.8 H (47-70) % Lymph % (Auto) 15.0 L (19-41) % [place] % (Auto) 8.3 (0-10) % Eos % (Auto) 0.2 (0-5) % Baso % (Auto) 0.2 (0-1) % Absolute Neuts (auto) 9.3 H (2.0-7.7) X10^3/uL Absolute Lymphs (auto) 1.84 (0.83-4.51) X10^3/uL Nucleated RBC % 0 (0-5) % Sodium 143 (136-145) mmol/L Potassium 4.1 (3.5-5.1) mmol/L Chloride 113 H (98-107) mmol/L Carbon Dioxide 22.0 (21.0-32.0) mmol/L Anion Gap 8 (5-15) BUN 11 (7-18) mg/dL Creatinine 0.56 (0.55-1.02) mg/dL Estim Creat Clear Calc 119.35 ml/min Est GFR (MDRD) Af Amer 165 (>60) mL/min Est GFR (MDRD) Non-Af 137 (>60) mL/min BUN/Creatinine Ratio 19.5 (10-20) RATIO Glucose 75 (74-106) mg/dL Calcium 9.0 (8.5-10.1) mg/dL Total Bilirubin 0.10 L (0.20-1.00) mg/dL AST 15 (15-37) U/L ALT 28 (13-56) U/L Alkaline Phosphatase 173 H (45-117) U/L Total Protein 5.9 L (6.4-8.2) g/dL Albumin 2.5 L (3.2-5.0) g/dL Globulin 3.4 (2.2-4.2) g/dL Albumin/Globulin Ratio 0.7 L (0.9-2.4) RATIO U Random Total Protein 12.2 H (<11.9) mg/dL Urine Creatinine 133.00 (NO RANGE EST.) mg/dL Protein/Creatinin Ratio 92 (0-200) mg/g CRE NST - FHR Rate Baby A Baseline: 140 Variability:: Moderate Accelerations:: 15 x 15 Decelerations:: None NST Reactive:: Yes FHR Category:: Category I Uterine Activity:: No regular Impression/Plan 28-year-old G2, P0 at 35 weeks presents with elevated blood pressure reading in the office Reactive NST category 1 tracing normal labs negative proteinuria now normal blood pressures. Reviewed with patient preeclampsia precautions follow-up in the office Multi Select Codes - Urinary/Genital Urinary/Genital CPT Codes: 53308-52 non-stress test Interp
== END 2018-11-10 14:40 | disposition home or self-care (01) ==
LOC: WPPAT 12:44 → LABSPEC 12:47 → WPOUT 12:48 → WP 11-11 12:08
PROVIDERS: Family Provider Family Medicine; PCP Family Medicine; Referring Provider Obstetrics & Gynecology; Visit Provider Obstetrics & Gynecology
DX: O16.3 Unspecified maternal hypertension, third trimester (principal); Z3A.35 35 weeks gestation of pregnancy
CPT/HCPCS: 59025; 59050; 80053; 82570; 84156; 85025; 99218; G0378

== ENCOUNTER 2018-11-18 15:55 | Outpatient (CLI) | payer MEDICAID, SELFPAY ==
[2018-11-18 13:58] VITALS: BMI 32.7
[2018-11-18 14:51] LABS: Protein, Urine (Random) < 6.0 mg/dL (<11.9)
[2018-11-18 15:27] LABS: Absolute Lymphocyte Count 1.85 X10^3/uL (0.83-4.51); Absolute Neutrophil Count 7.9 X10^3/uL (2.0-7.7); Basophil# 0.03 X10^3/uL; Basophil% 0.3 % (0-1); Eosinophil# 0.04 X10^3/uL; Eosinophils% 0.4 % (0-5); Hematocrit 36.6 % (37-47); Hemoglobin 12.4 g/dL (12.0-15.0); Lymphocyte # 1.85 X10^3/ul (4.0); Lymphocyte % 17.1 % (19-41); Mean Corp Hgb Conc 33.9 g/dL (32-36); Mean Corpuscular Hgb 30.5 pg (27.0-32.0); Mean Corpuscular Volume 90.1 fL (81-99); Mean Platelet Vol. 12.8 fl (6.2-12.0); Monocyte# 0.96 X10^3/uL; Monocyte% 8.9 % (0-10); NRBC Flagged by Analyzer 0 % (0-5); Neutrophil # 7.87 X10^3/uL (2.7-7.7); Neutrophil % 72.9 % (47-70); Platelet Count 185 K/mm3 (150-450); RBC Distribution Width CV 12.2 % (11.6-14.6); Red Blood Count 4.06 M/mm3 (4.2-5.4); White Blood Count 10.8 K/mm3 (4.4-11.0)
[2018-11-18 15:43] LABS: ALB/GLOB Ratio 0.7 RATIO (0.9-2.4); AST(SGOT) 21 U/L (15-37); Alanine Aminotransfer ALT/SGPT 32 U/L (13-56); Albumin, Serum 2.7 g/dL (3.2-5.0); Alkaline Phosphatase 202 U/L (45-117); Anion Gap 7 (5-15); BUN 10 mg/dL (7-18); BUN/Creat Ratio 13.8 RATIO (10-20); Calcium,Total 8.9 mg/dL (8.5-10.1); Chloride 112 mmol/L (98-107); Creatinine, Serum 0.72 mg/dL (0.55-1.02); EST Glomerular Filtration Rate 102 mL/min (>60); Est Glom Filt Rate - Afr Amer 124 mL/min (>60); Globulin 3.7 g/dL (2.2-4.2); Glucose 108 mg/dL (74-106); Potassium 4.2 mmol/L (3.5-5.1); Protein, Total 6.4 g/dL (6.4-8.2); Sodium Level 140 mmol/L (136-145)
[2018-11-18 16:08] VITALS: BMI 32.5
[2018-11-18] MEDS: Betamethasone/Betamethasone 30 MG/5 ML Vial 12 MG IM (17:03)
--- NOTE | 2018-11-21 03:37 | OB.TRI.PN ---
Progress Notes Date of Service: 11/18/18 Progress Note: NST secondary to decreased movement. heart tone 140 moderate variability reactive no decelerations category 1 tracing [place]: No regular contractions Assessment and plan decreased movement reactive NST reviewed kick counts follow-up as scheduled. Laboratory Studies: Laboratory Tests 11/18/18 11/18/18 11/18/18 Range/Units 14:54 14:54 14:29 WBC 10.8 (4.4-11.0) K/mm3 RBC 4.06 L (4.2-5.4) M/mm3 Hgb 12.4 (12.0-15.0) g/dL Hct 36.6 L (37-47) % MCV 90.1 (81-99) fL MCH 30.5 (27.0-32.0) pg MCHC 33.9 (32-36) g/dL RDW Std Deviation 40.0 (35.1-43.9) fl RDW Coeff of Jacobo 12.2 (11.6-14.6) % Plt Count 185 (150-450) K/mm3 MPV 12.8 H (6.2-12.0) fl Immature Gran % (Auto) 0.400 (0.0-0.9) % Neut % (Auto) 72.9 H (47-70) % Lymph % (Auto) 17.1 L (19-41) % [place] % (Auto) 8.9 (0-10) % Eos % (Auto) 0.4 (0-5) % Baso % (Auto) 0.3 (0-1) % Absolute Neuts (auto) 7.9 H (2.0-7.7) X10^3/uL Absolute Lymphs (auto) 1.85 (0.83-4.51) X10^3/uL Nucleated RBC % 0 (0-5) % Sodium 140 (136-145) mmol/L Potassium 4.2 (3.5-5.1) mmol/L Chloride 112 H (98-107) mmol/L Carbon Dioxide 21.0 (21.0-32.0) mmol/L Anion Gap 7 (5-15) BUN 10 (7-18) mg/dL Creatinine 0.72 (0.55-1.02) mg/dL Est GFR (MDRD) Af Amer 124 (>60) mL/min Est GFR (MDRD) Non-Af 102 (>60) mL/min BUN/Creatinine Ratio 13.8 (10-20) RATIO Glucose 108 H (74-106) mg/dL Calcium 8.9 (8.5-10.1) mg/dL Total Bilirubin 0.20 (0.20-1.00) mg/dL AST 21 (15-37) U/L ALT 32 (13-56) U/L Alkaline Phosphatase 202 H (45-117) U/L Total Protein 6.4 (6.4-8.2) g/dL Albumin 2.7 L (3.2-5.0) g/dL Globulin 3.7 (2.2-4.2) g/dL Albumin/Globulin Ratio 0.7 L (0.9-2.4) RATIO U Random Total Protein < 6.0 (<11.9) mg/dL Urine Creatinine 17.10 (NO RANGE EST.) mg/dL Protein/Creatinin Ratio TNP
== END 2018-11-18 17:15 | disposition home or self-care (01) ==
LOC: LABSPEC 16:03 → WPOUT 16:04 → WP 16:04
PROVIDERS: Family Provider Family Medicine; PCP Family Medicine; Referring Provider Obstetrics & Gynecology; Visit Provider Obstetrics & Gynecology
DX: O36.8190 Decreased fetal movements, unspecified trimester, not applicable or unspecified (principal)
CPT/HCPCS: 36415; 59025; 59050; 80053; 82570; 84156; 85025; 87081; 96372; 99218; G0378; J0702

== ENCOUNTER 2018-11-19 13:54 | Outpatient (CLI) | payer MEDICAID, SELFPAY ==
[2018-11-18 14:45] VITALS: BMI 32.7
[2018-11-18 16:08] VITALS: BMI 32.5
--- NOTE | 2018-11-19 13:57 | US_ITS ---
STUDY: SECOND AND THIRD TRIMESTER OBSTETRICAL ULTRASOUND REASON FOR EXAM: Female, 28 years old. Assess growth. LMP: 03/10/2018. GA (LMP) 36 week 2 day with TORO 12/15/2017. TECHNIQUE: Transabdominal PRIOR ULTRASOUND: None. FINDINGS: Single live intrauterine gestation, cephalic presentation, cardiac rate 130 bpm. Amniotic fluid index 13.5 cm, maximum vertical pocket 5.8 cm. The cervix is not visualized. Placenta grade 2 anterior not low-lying. Maternal adnexa are not assessed. BIOMETRY: BPD: 8.7: 35 weeks, 1 days HC: 31.3: 35 weeks, 0 days AC: 31.7: 35 weeks, 5 days FL: 7.0: 35 weeks, 1 days CI: 80% FL/BPD: 81% FL/AC: 22% HC/AC: 0.99 age by current US: 35 weeks, 4 days. TORO by current US: 12/20/2018. Estimated weight: 2727 grams, +/- 398 grams, 34 %. ANATOMY: Limited anatomic images were obtained for assessment of dates, growth, viability and positioning. Normal appearing bladder bubble. Right renal pelvis dilated up to 10.5 mm. US/OB Limited With Biometrics IMPRESSION: Single live intrauterine gestation. Measurements within 5 days of expected dates. No acute or maternal abnormality is evident. Ectatic right renal pelvis, 10.5 mm. kidney assessment is recommended. Electronically Signed: Alli Nair MD at 14:54 EDT Tel , Service support ,
[2018-11-19 16:28] VITALS: BMI 32.2
[2018-11-19] MEDS: Betamethasone/Betamethasone 30 MG/5 ML Vial 12 MG IM (16:57)
--- NOTE | 2018-11-19 17:17 | OB.TRI.PN ---
Progress Notes Date of Service: 11/18/18 Progress Note: Patient presented for blood pressures. Repeat BPs were all within normal limits and normal preeclampsia labs with negative proteinuria heart tone 140s moderate variability reactive no decelerations category 1 tracing [place]: Irregular contractions Assessment and plan elevated blood pressures [place] precautions reviewed recommend home blood pressure checks first dose of Celestone given follow-up in 24 hours for repeat Celestone dose. Multi Select Codes - Urinary/Genital Urinary/Genital CPT Codes: 13285-40 non-stress test Interp
== END 2018-11-19 17:50 | disposition home or self-care (01) ==
LOC: OPUS 16:16 → WP 16:16
PROVIDERS: Family Provider Family Medicine; PCP Family Medicine; Referring Provider Obstetrics & Gynecology; Visit Provider Obstetrics & Gynecology
DX: O16.9 Unspecified maternal hypertension, unspecified trimester (principal); Z3A.00 Weeks of gestation of pregnancy not specified
CPT/HCPCS: 59025; 59050; 76816; 96372; 99218; G0378; J0702

== ENCOUNTER 2018-11-21 11:55 | Outpatient (CLI) | payer MEDICAID, SELFPAY ==
[2018-11-21 12:19] VITALS: BMI 32.6
--- NOTE | 2018-11-21 22:30 | OB.TRI.PN_ITS ---
Progress Notes Date of Service: 11/21/18 Progress Note: Patient presented for decreased movement. Normal blood pressures were noted. heart tone 130 variability reactive no decelerations category 1 tracing [place]: Regular contractions Assessment and plan decreased movement patient now feeling good movement and reassuring heart tones. Reactive NST. DC home kick counts - Problem List (1) Decreased movement Status: Acute (2) Gestational hypertension Status: Acute Code Visit [id number]: 15676-74 non-stress test Interp
== END 2018-11-21 13:00 | disposition home or self-care (01) ==
LOC: WPOUT 11:59 → WP 11:59
PROVIDERS: Family Provider Family Medicine; PCP Family Medicine; Referring Provider Obstetrics & Gynecology; Visit Provider Obstetrics & Gynecology
DX: O36.8190 Decreased fetal movements, unspecified trimester, not applicable or unspecified (principal); Z3A.00 Weeks of gestation of pregnancy not specified
CPT/HCPCS: 59025; 59050; 99218; G0378

== ENCOUNTER 2018-11-24 14:00 | Inpatient (IN) | payer MEDICAID, SELFPAY ==
[2018-11-24 13:27] VITALS: BMI 32.9
[2018-11-24] MEDS: 0.9% Saline Lock 10 ML Syringe IV (14:00)
[2018-11-24 14:09] LABS: Protein, Urine (Random) < 6.0 mg/dL (<11.9)
[2018-11-24 14:27] VITALS: BMI 33.0
[2018-11-24] MEDS: Lactated Ringers 1,000 ML 50 ML IV (14:32)
[2018-11-24 14:36] LABS: Absolute Lymphocyte Count 2.05 X10^3/uL (0.83-4.51); Absolute Neutrophil Count 9.7 X10^3/uL (2.0-7.7); Basophil# 0.03 X10^3/uL; Basophil% 0.2 % (0-1); Eosinophil# 0.05 X10^3/uL; Eosinophils% 0.4 % (0-5); Hematocrit 34.4 % (37-47); Hemoglobin 11.9 g/dL (12.0-15.0); Lymphocyte # 2.05 X10^3/ul (4.0); Lymphocyte % 15.6 % (19-41); Mean Corp Hgb Conc 34.6 g/dL (32-36); Mean Corpuscular Hgb 31.6 pg (27.0-32.0); Mean Corpuscular Volume 91.2 fL (81-99); Monocyte% 9.1 % (0-10); NRBC Flagged by Analyzer 0 % (0-5); Neutrophil # 9.69 X10^3/uL (2.7-7.7); Neutrophil % 73.9 % (47-70); Platelet Count 173 K/mm3 (150-450); RBC Distribution Width CV 12.3 % (11.6-14.6); RBC Distribution Width SD 40.6 fl (35.1-43.9); Red Blood Count 3.77 M/mm3 (4.2-5.4); White Blood Count 13.1 K/mm3 (4.4-11.0)
[2018-11-24] MEDS: Oxytocin 30 units/NS 500 ml 30 UNITS/500 ML IV.SOLN IV (14:36)
[2018-11-24 14:48] LABS: International Normalized Ratio 0.9; Partial Thromboplast Time 25.1 Seconds (24.1-36.2); Prothrombin Time (Protime)PT. 12.4 SECONDS (11.7-14.9)
[2018-11-24 15:07] LABS: AST(SGOT) 12 U/L (15-37); Alanine Aminotransfer ALT/SGPT 20 U/L (13-56); Creatinine, Serum 0.69 mg/dL (0.55-1.02); EST Glomerular Filtration Rate 109 mL/min (>60); Est Glom Filt Rate - Afr Amer 131 mL/min (>60); Estimated Creatinine Clearance 96.86 ml/min
[2018-11-24] MEDS: Lactated Ringers 500 ML 999 ML IV (21:20)
--- NOTE | 2018-11-24 21:46 | PCM.HPOB.BLA ---
- Problem List (1) pyelectasis Status: Acute (2) Gestational hypertension Status: Acute (3) Abnormal glucose affecting Status: Acute Comment: 3 hr gtt normal (4) UTI in Status: Acute Qualifiers: Comment: repeat culture negative (5) Status: Acute Qualifiers: Comment: carrier, genetic, and ntd discussed. anatomy us- normal (6) Supervision of normal Status: Acute Qualifiers: Comment: PRR TORO 12/15/18 girl Anna Clark (7) History of miscarriage Status: Acute Comment: 13 week loss, APL sprague negative History and Physical Date of Admission: 11/24/18 Intake Vital Signs 11/24/18 Height 5 ft 2 in 11/24/18 Weight: 180 lb 11/24/18 Body Mass Index (BMI) 32.9 11/24/18 Blood Pressure 162/104 H Intake Visit Reasons: 37 WK OB Chief Complaint: est ob Advertising Dispatch Clerk Required: No Is patient in pain?: No Allergies No Known Allergies Allergy (Verified 11/24/18 13:28) Medications vitamin,calcium,hubvuizc-ktoj-dookc acid tablet 1 tab PO QDAY 10/01/17 [History Confirmed 11/24/18] Last Menstral Period: 08/03/17 Zika: Zika virus screening: Negative : No PFSH PFSH Medical History Anxiety (Acute) Surgical History History of tonsillectomy (Acute) Social History (Updated 11/24/18 @ 21:45 by Kelley Benz MD) Smoking Status: Never smoker alcohol intake: current details: pre substance use type: does not use caffeine: Yes what type of physical activity do you participate in: none seatbelt use: always do you feel safe at home: Yes additional social history: Patient works at [employer] Pregancy History 2 Elective abortions Hx Para 0 Spontaneous abortions 1 Hx # Term Pregnancies Ectopic pregnancies Hx # Pregnancies Multiple births # of living children 0 Past Pregnancies Del. Date Name GA/Weeks Outcome Route Bth Weight Gen Labor Lgth Anesthesia Del Locatn Provider FOB 11/07/17 13 spontaneous Male provider office [facility] HPI 37 WK OB: Details: MICHAELA LOBATO is a 28 year old who presents for routine OB visit. bps are elevated at home 140s over 100s and today 163/102 in the office. negative proteinuria and normal labs OB Visit TORO Calculator Estimated Delivery Date Method Current WG Current Estimate 12/15/18 LMP (Certain) 37w 0d Expected Delivery Route/Plan Specific Issue/Plans flu vaccine: declined tdap vaccine: given rhogam: na LARC form signed: declined labor support person: clark pain management: cut cord/dad catch: [] : [] PP control planned: [] discussed possible routes of delivery and associated risks: [] special requests: [] Initial Weight: Not Recorded Date EGA Weight BP Urine Prot Glucose FHR FuHt Pres Mov CTX Dilation Effaced St Visit Note Effaced 05/18/18 9w 6d 136 lb 2 oz 126/72 166 Work in for brown discharge and vaginal irritation. No bleeding or cramping. 0 05/25/18 10w 6d 136 lb 6 oz 128/78 Negative Negative 160 no vb crmaping 06/08/18 12w 6d 137 lb 124/68 155 no vb lof crmaping 06/22/18 14w 6d 138 lb 122/70 Negative Negative 150 15 no vb cramping, doing well. 07/20/18 18w 6d 143 lb 2 oz 128/74 Negative Negative 142 absent NO VB, LOF. Doing well 08/18/18 23w 0d 148 lb 132/84 Negative Negative 140 23 no vb lof good fm n oregular ctx 09/15/18 27w 0d 157 lb 134/82 Negative Negative 140 27 needs 3 hour GTT tdap today. no vb lof good fm no regualr ctx 09/29/18 29w 0d 163 lb Negative Negative 140 29 Active occasional 0 co brown discharge some decreased movement but still active overall. no lof no regular ctx 10/13/18 31w 0d 165 lb 126/84 Negative Negative 140 31 Cephalic Active absent no vb lof good fm no regular ctx 10/27/18 33w 0d 170 lb 130/88 Negative Negative 140 33 Cephalic Active absent no vb lof good fm no regualr ctx 11/10/18 35w 0d 177 lb 6 oz 132/90 Negative Negative 135 35 Cephalic Active no vb lof good fm no regular ctx recommend lab evaluation in triage, 11/12/18 35w 2d 177 lb 8 oz 138/88 Negative Negative 142 Active absent BP check. Slight headache/didnt sleep well. No vision changes. Good FM. 11/18/18 36w 1d 179 lb 140/100 Negative Negative 140 to l and d for evaluation due to elevated bps. Visit Notes Visit Date: 11/18/18 to l and d for evaluation due to elevated bps. Kelley Benz MD on 11/24/18 Visit Date: 11/12/18 BP check. Slight headache/didnt sleep well. No vision changes. Good FM. HUY ObrienC on 11/12/18 Visit Date: 11/10/18 recommend lab evaluation in triage, Kelley Benz MD on 11/10/18 no vb lof good fm no regular ctx Kelley Benz MD on 11/10/18 Visit Date: 10/27/18 no vb lof good fm no regualr ctx Kelley Benz MD on 10/27/18 Visit Date: 10/13/18 no vb lof good fm no regular ctx Kellye Benz MD on 10/13/18 Visit Date: 09/29/18 co brown discharge some decreased movement but still active overall. no lof no regular ctx Kelley Benz MD on 09/29/18 Visit Date: 09/15/18 needs 3 hour GTT tdap today. no vb lof good fm no regualr ctx Kelley Benz MD on 09/15/18 Visit Date: 08/18/18 no vb lof good fm n oregular ctx Kelley Benz MD on 08/18/18 Visit Date: 07/20/18 NO VB, LOF. Doing well HUY ObrienC on 07/20/18 Visit Date: 06/22/18 no vb cramping, doing well. Kelley Benz MD on 06/22/18 Visit Date: 06/08/18 no vb lof buckying Kelley Benz MD on 06/08/18 Visit Date: 05/25/18 no vb [place] Kelley Benz MD on 05/25/18 Visit Date: 05/18/18 Work in for brown discharge and vaginal irritation. No bleeding or cramping. JARAD Obrien on 05/18/18 ACOG First Trimester First Trimester: Desire for , Alcohol, Tobacco Cessation, Illicit/Recreational Drug/Substance Use, Intimate Partner Violence, Barriers to care, Unstable Housing, Communication Barriers, Environmental/Work Hazards, Anticipated Course of Care, Toxoplasmosis Precations, Use of Any medications, Sexual activity, Exercise, Dental Care, Sauna/Hot tub use, Seat Belt use, Childbirth classes/Hospital facilities, , Travel, Indications for US and Screening for Aneuploidy Second Trimester Second Trimester: Signs and Symptoms of Labor, Selecting a care provider, Reproductive Life Planning, Care Planning, Tobacco Cessation, Depression/Anxiety and Intimate Partner Violence Third Trimester Third Trimester: Pain Management Plans, Labor support person(s), Immediate Larc, Movement Monitoring and Infant Feeding Yes ; discussed Trial of Labor after Counseling or discussed Circumcision preference Diagnostics Diagnostics Labs Blood Type O POSITIVE 11/24/18 Antibody Screen NEGATIVE 11/24/18 Hct 34.4 % (37-47) L 11/24/18 Hgb 11.9 g/dL (12.0-15.0) L 11/24/18 Obstetrics Ultrasound 11/19/18 Diagnostics Blood Type O POSITIVE 11/24/18 Antibody Screen NEGATIVE 11/24/18 Gest Glucose Tolerance MG/DL 09/21/18 Hgb 11.9 g/dL (12.0-15.0) L 11/24/18 Hct 34.4 % (37-47) L 11/24/18 Details: HIV: Urine Culture: Sequential Screen: NIPT Screen: ROS Const Reports system reviewed and no additional complaints, except as docu Card Reports system reviewed and no additional complaints, except as docu Resp Reports system reviewed and no additional complaints, except as docu GI Reports system reviewed and no additional complaints, except as docu, Reports nausea Reports system reviewed and no additional complaints, except as docu Musc Reports system reviewed and no additional complaints, except as docu Exam Const General: cooperative, healthy appearing, comfortable, anxious HENMT Head: normal to inspection Nose: external nose normal Face and sinus: normal facial exam Neck Neck: normal visual inspection, full ROM, no lymphadenopathy Thyroid: thyroid normal Chest Chest palpation & inspection: normal inspection of the chest Resp Effort & Inspection: normal respiratory effort GI Inspection: normal to inspection Palpation: soft, other (gravid uterus) Other: infant vertex and appropriate size for gestational age Other: Cervical Exam: Extrem General: pedal edema Results [id number] Office Urine Glucose Negative Last Edit by Betsy Romano on 11/24/18 13:33 Office Urine Protein Negative Last Edit by Betsy Romano on 11/24/18 13:33 Assessment & Plan Problems 1. Gestational hypertension O13.9 2. Urinary tract infection in mother during third trimester of O23.43 3. Abnormal glucose affecting O99.810 4. 37 weeks gestation of Z3A.37 5. Encounter for supervision of other normal in third trimester Z34.83 6. History of miscarriage Z87.59 Plan Patient presents IOL, plan management for , pitocin/AROM alex bulb. Pain management: plans epidural GBS negative. Management of any complications: ghtn- plan IOL since 37 weeks I have reviewed the [facility] and made any clinically relevant updates.
--- NOTE | 2018-11-24 21:46 | PCM.PN.BLA ---
Progress Note fht 130 moderate variability reactive no decelerations category I tracing [place]: regular arom clear fluid a/p pit per protocol
[2018-11-24] MEDS: fentaNYL-bupivacaine (epidural) 100 ML BAG EPIDURAL (22:58)
[2018-11-25] MEDS: Lactated Ringers 1,000 ML 200 ML IV (00:52)
[2018-11-25] MEDS: Oxytocin 30 units/NS 500 ml 30 UNITS/500 ML IV.SOLN 334 UNITS IV (06:00)
--- NOTE | 2018-11-25 08:10 | OP.PCM_ITS ---
Problem List (1) pyelectasis Status: Acute (2) Gestational hypertension Status: Acute (3) Abnormal glucose affecting Status: Acute Comment: 3 hr gtt normal (4) UTI in Status: Acute Qualifiers: Comment: repeat culture negative (5) Status: Acute Qualifiers: Comment: carrier, genetic, and ntd discussed. anatomy us- normal (6) Supervision of normal Status: Acute Qualifiers: Comment: PRR TORO 12/15/18 girl Anna Clark (7) History of miscarriage Status: Acute Comment: 13 week loss, APL sprague negative Vaginal Delivery Maternal Presentation: Medically Indicated Induction iol 37 weeks GHTN Method of Induction: Pitocin, [place] Bulb Medical Reason for Induction: Gestational Hypertension Amniotic Membrane Rupture Type: Artificial Amniotic Fluid Description: Clear Final TORO: 12/15/18 Gestational age: 37 Weeks and 1 Days Date of Procedure: 11/25/18 Pre-Operative Diagnosis: ghtn Post-Operative Diagnosis: same Surgery/ Procedure Performed: Spontaneous Vaginal Delivery Type of Anesthesia: Epidural Description of Procedure: 28-year-old G2, P0 at 37 weeks presents for induction labor secondary to gestational hypertension. Blood work is within normal limits with negative proteinuria but pressures have been in the 140s over 100s at home and in the office today. Patient denies any headaches and has a normal neurologic exam. Patient was induced with Pitocin and [place] bulb and proceeded to have artificial rupture membranes and epidural anesthesia. Patient began pushing and delivered the head in the ZOYA presentation. The head was delivered atraumatically and a tight nuchal cord x2 was noted at time of delivery and was unable to be reduced so the anterior shoulder was delivered and then the cord was clamped and cut on the perineum and the rest the infant delivered without complication.. The anterior and posterior shoulders delivered without complication followed by the rest of the infant and the infant was placed on the maternal abdomen. Delayed cord clamping was employed for approximately 60 seconds. Cord was clamped and cut and gentle traction was applied to the cord and the placenta delivered spontaneously immediately following it was noted to be intact with three-vessel cord. The perineum and vagina were inspected and noted to have a small first- degree perineal laceration that was repaired in the usual fashion with 3-0 Vicryl Rapide after injection with 1% lidocaine. EBL was 200 cc. Patient and infant tolerated delivery well. Presentation: ZOYA Placental Delivery Description: Spontaneous Placenta Disposition: [facility] Cord Vessel Description: 3 Vessels Nuchal Cord Compression: With compression Cord Entanglement: Around neck x 2, tight Multi Select Codes - Urinary/Genital Urinary/Genital CPT Codes: 88831-70 non-stress test Interp
[2018-11-25] MEDS: Naproxen 250 MG Tablet 500 MG PO ×2 (09:49→18:53)
[2018-11-25 12:32] VITALS: BP 126/71; PULSE 90; RESP 18; TEMP 36.4
[2018-11-25 16:20] VITALS: BP 134/87; PULSE 92; RESP 97; TEMP 36.8; O2SAT 97
[2018-11-25 20:30] VITALS: BP 136/83; PULSE 83; RESP 16; TEMP 36.9
[2018-11-26] VITALS: BP 117/70; PULSE 88; RESP 16; TEMP 36.6
[2018-11-26 04:30] VITALS: BP 122/82; PULSE 60; RESP 16; TEMP 36.5
[2018-11-26] MEDS: Naproxen 250 MG Tablet 500 MG PO ×2 (05:04→12:45)
--- NOTE | 2018-11-26 07:44 | PCM.PN.OB ---
Subjective: doing well no complaints pain controlled no CP SOB N V ambulating well tolerating po lochia moderate, going well - Physical Exam General: Alert, Oriented x3 Abdomen: Soft, Non-Distended, - - FF below U Vital Signs Temp Pulse Resp BP Pulse Ox 97.7 F L 60 16 122/82 H 97 11/26/18 04:30 11/26/18 04:30 11/26/18 04:30 11/26/18 04:30 11/25/18 16:20 Oxygen Delivery Method Room Air Weight: 180 lb 8.937 oz Body Mass Index (BMI) 33.0 Intake and Output for Last 24 Hours 11/24/18 11/25/18 11/26/18 23:59 23:59 23:59 Intake Total 940.07 / 940.07 2772.82 / 2772.82 Output Total 2250 / 2250 Balance 940.07 / 940.07 522.82 / 522.82 Medical Necessity - Tobacco Use Smoking Status: Never smoker Assessment/Plan All Active Problems (Last Reviewed 11/24/18 @ 13:28 by Betsy Romano) pyelectasis (Acute) Decreased movement (Acute) Gestational hypertension (Acute) Abnormal glucose affecting (Acute) UTI in (Acute) (Acute) Supervision of normal (Acute) History of miscarriage (Acute) screening encounter (Resolved) Elevated blood pressure reading in office without diagnosis of hypertension (Resolved) (Resolved) Supervision of normal (Resolved) s/p PPD # 1 1. routine post delivery care 2. breast feeding- support given 3. rh positive 4. rubella immune
--- NOTE | 2018-11-26 07:46 | DCINST_ITS ---
Additional Instructions: If you experience any of the following, contact your healthcare provider. * Bleeding that soaks a pad every hour for 2 hours * Fever 100.4 or higher * Unrelieved incision or abdominal pain * Swelling, redness, discharge or bleeding from your incision or episiotomy site * Your incision begins to separate * Problems urinating (including inability to urinate or burning while urinating). * Visual changes * Severe headache * Flu-like symptoms * Pain or redness in one of both of your breasts * Pain, warmth, tenderness or swelling in your legs, especially the calf area * Frequent nausea and vomiting * Symptoms of depression or anxiety If you experience any of the following, call 911 or go to the nearest Emergency Room. * Chest pain * Problems breathing * Seizure activity * Partial or complete paralysis of a body part, slurred speech, weakness or drooping of the face, or a sudden inability to walk or hold your balance Allergies/Adverse Reactions: Allergies No Known Allergies Allergy (Verified 11/24/18 13:28) Medications to take at Discharge vitamin,calcium,ltkxfqmz-uggg-mcunx acid tablet 1 tab PO QDAY 10/01/17 Primary Care Physician: Graeme Mendoza MD [Primary Care Provider] - Test Results: Test results from this visit will be discussed in further detail at your follow- up appointment, if applicable.
--- NOTE | 2018-11-26 07:46 | PCM.DCVAG ---
Additional Instructions: If you experience any of the following, contact your healthcare provider. Bleeding that soaks a pad every hour for 2 hours Fever 100.4 or higher Unrelieved incision or abdominal pain Swelling, redness, discharge or bleeding from your incision or episiotomy site Your incision begins to separate Problems urinating (including inability to urinate or burning while urinating). Visual changes Severe headache Flu-like symptoms Pain or redness in one of both of your breasts Pain, warmth, tenderness or swelling in your legs, especially the calf area Frequent nausea and vomiting Symptoms of depression or anxiety If you experience any of the following, call 911 or go to the nearest Emergency Room. Chest pain Problems breathing Seizure activity Partial or complete paralysis of a body part, slurred speech, weakness or drooping of the face, or a sudden inability to walk or hold your balance Allergies/Adverse Reactions: Allergies No Known Allergies Allergy (Verified 11/24/18 13:28) Medications to take at Discharge vitamin,calcium,vgvgqkfm-beow-axgfu acid tablet 1 tab PO QDAY 10/01/17 Primary Care Physician: Graeme Mendoza MD [Primary Care Provider] - Test Results: Test results from this visit will be discussed in further detail at your follow-up appointment, if applicable.
[2018-11-26 08:01] VITALS: BP 121/70; PULSE 81; RESP 18; TEMP 36.8; O2SAT 96
[2018-11-26 14:37] VITALS: BP 143/93; PULSE 66; RESP 18; TEMP 36.8
[2018-11-26] MEDS: Senna/Docusate Sodium 1 Tablet PO (14:44)
--- NOTE | 2018-11-26 14:46 | NURSING ---
Patient denies headache, visual changes, or dizziness. Will recheck BP in one hour.
[2018-11-26 15:38] VITALS: BP 130/81
--- NOTE | 2018-11-26 16:35 | CASEMGMT ---
Social Work Assessment Labor and Delivery Unit Date of Referral: 11/26/2018 Time of Referral: 920 Referred By: Dr. Benz Date of Intervention: 11/26/2018 Time of Intervention: 1634 Reason for Referral: maternal history of anxiety History obtained from: medical records, patient/mother of baby (MOB) Guillermina Dodd and father of baby (FOB) Clark Dodd. Household composition: MOB and FOB live in their own home. No reported safety concerns. Patient's parent/guardian status: MOB is 27 years old to FOB who is 29. Have been together for 10 years in total, for a year. baby, Anna Dodd, born on 11-25-2017 is the first live for this family. MOB and FOB had a 14 week loss, a son named William in October of 2017. During private part of conversation with MOB, MOB denies any form of abuse, intimidation, or coercion relationship with FOB. Medical History: MOB is G2, P0 to 1 after delivering Anna. MOB had a 14 week loss in October of 2017. MOB with care adequate this with Anna. Anna delivered at 37 weeks gestation, weighted 6 pounds 1 ounce. Apgars 8 and 9 at 1 and 5 minutes of life. Educational Status: MOB graduated high school, did have some vocational training in dental assisting but did not finish that program. MOB reports to be able to read, write, and to understand what is read. 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 FOB works for a [employer] (is usually laid off in the winter months and received unemployment). Supplies: It is reported that all needed supplies are in place including car seat, bassinet, crib, clothing, diapers, wipes, and breast pump. Childcare/Caregiver(s): MOB will be primary provider with help from FOB. Plan to have family help out when MOB returns to work. Transportation: Reported to be adequate. Programs/Agencies Involved: [facility] for medical. MOB accepting of information on Help Me Grow and WIC. Children Services/Legal Issues: None. Behavioral Health Issues: Mental Health History: MOB reports development of anxiety after loss of William, and feels the anxiety was situational to the loss. MOB reported tried Paxil for about a week and then stopped. MOB denies any other treatment history. Denies any past or current thoughts, plans, intent or attempts at suicide. No thoughts of harming others. Substance Use History: MOB denies past or present substance uses issues. No tobacco use either. Drug Screens: None noted in the record for MOB or baby. Family/Social Stressors: MOB and FOB identify several losses over the last 3 years. FOReddy's brother in motorcycle accident , then FOB's mother was diagnosed with Cancer in July 2017, MOB and FOB lost son William in October of 2017, and then FOReddy's mother in July of 2018. Stress at the end of due to baby showing to have pyelectasis, which created worry about baby and then MOB developing concerns for blood pressure near the end of the . Support Systems: MOB reports FOReddy is a good support and to also have support from MOB's father, stepmother, mother, and FOB's father. MOB has sisters that can talk to when feeling overwhelmed. Depression/Shaken Baby/Safe Sleeping : Educated MOB and FOB to depression and anxiety, risk factors present and importance of seeking out help and support should symptoms arise, also attempting to normalize this as a common issue in the period. Educated that fathers are also at risk. Educated to safe sleeping and both parents were able to identify what this meant. Educated to shaken baby prevention, and both parents were able to verbalize importance of setting baby down adn walking away. ASSESSMENT: Met with MOB and FOB together and then with MOB privately. During conversation with both MOB and FOB together, FOB participated in conversation respectfully and held the baby. FOB was appropriate and gentle with the baby, attentive and showing bonding cues such as gazing and finger tipping baby's face. FOB did appear sad when talking about support system, indicating that he and MOB have gone through a lot in the last couple of years and learned to depend on each other. MOB voiced that there is family around to help MOB and FOB, and that MOB and FOB will use the supports if needed. Through conversation learned of FOB's losses and how impacting this has been for the family, and even for FOB to have a child and not be able to have his mother present to meet the baby. Supportive listening offered. MOB reports to have a very close family herself and the family is around to help out. MOB and FOB report to have needed supples for the baby, to have adequate support, will likely apply for WIC and may consider food assistance while MOB is off of work. MOB accepting of [facility] resources lists and depression packet that includes local and online supports available. Observed MOB hold the baby, MOB also attentive and appropriate, showing bonding cues, as well as voicing love for this baby. Encouraged MOB to keep an open mind about counseling and medication if mood and anxiety symptoms develops, get fresh air and some physical movement each day. PLAN: MOB and baby to home. Will see MOB one more time prior to discharge, just to provide WIC applications for home going. -JCARLOS Daniels, JOURNEYMAN CARPENTER
[2018-11-26 20:21] VITALS: BP 128/89; PULSE 62; RESP 16; TEMP 37.1; O2SAT 97
[2018-11-27 01:22] VITALS: BP 130/81; PULSE 69; RESP 16; TEMP 36.9
[2018-11-27] MEDS: Naproxen 250 MG Tablet 500 MG PO (05:29)
[2018-11-27 08:00] VITALS: BP 123/85; PULSE 71; RESP 16; TEMP 36.8
--- NOTE | 2018-11-27 08:43 | PCM.PN.OB ---
Subjective: doing well no complaints pain controlled no CP SOB N V ambulating well tolerating po lochia moderate, going well - Physical Exam General: Alert, Oriented x3 Vital Signs Temp Pulse Resp BP Pulse Ox 98.4 F 69 16 130/81 H 97 11/27/18 01:22 11/27/18 01:22 11/27/18 01:22 11/27/18 01:22 11/26/18 20:21 Oxygen Delivery Method Room Air Weight: 180 lb 8.937 oz Body Mass Index (BMI) 33.0 Intake and Output for Last 24 Hours 11/25/18 11/26/18 11/27/18 23:59 23:59 23:59 Intake Total 2772.82 / 2772.82 Output Total 2250 / 2250 Balance 522.82 / 522.82 Medical Necessity - Tobacco Use Smoking Status: Never smoker Assessment/Plan All Active Problems (Last Reviewed 11/24/18 @ 13:28 by Betsy Romano) pyelectasis (Acute) Decreased movement (Acute) Gestational hypertension (Acute) Abnormal glucose affecting (Acute) UTI in (Acute) (Acute) Supervision of normal (Acute) History of miscarriage (Acute) screening encounter (Resolved) Elevated blood pressure reading in office without diagnosis of hypertension (Resolved) (Resolved) Supervision of normal (Resolved) s/p PPD # 2 1. routine post delivery care 2. breast feeding- support given 3. rh positive 4. rubella immune
--- NOTE | 2018-11-27 09:23 | CASEMGMT ---
Social Work Labor and Delivery Follow up with mother of baby (MOB) and father of baby (FOB) to provide WIC applications. MOB reports the night went much better with feeding the baby and to be feeling more confident and relaxed about this. MOB and FOB both endorse being able to get some sleep and looking forward to returning home with baby. MOB expressed appreciation for social workers time and assistance. No other services requested or indicated. Refer to social work assessment from 11-26-2018 for further details. -SHANE Daniels, BILLET CUTTER
[2018-11-27] MEDS: Acetaminophen 500 MG Tablet 1000 MG PO (10:28)
== END 2018-11-27 12:00 | disposition home or self-care (01) | DRG 560 ==
LOC: WP 11-25 06:09 → WPOUT 11-25 08:32
PROVIDERS: Admitting Provider Obstetrics & Gynecology; Family Provider Family Medicine; PCP Family Medicine; Referring Provider Obstetrics & Gynecology; Visit Provider Obstetrics & Gynecology
DX: O13.4 Gestational [pregnancy-induced] hypertension without significant proteinuria, complicating childbirth (principal); O69.1XX0 Labor and delivery complicated by cord around neck, with compression, not applicable or unspecified; O70.0 First degree perineal laceration during delivery; Z3A.37 37 weeks gestation of pregnancy; Z37.0 Single live birth; O36.8190 Decreased fetal movements, unspecified trimester, not applicable or unspecified
CPT/HCPCS: 59025; 59050; 82565; 82570; 84156; 84450; 84460; 84550; 85025; 85610; 85730; 86850; 86900; 86901; 99218; J7120; A4216; G0378

== ENCOUNTER → 2018-12-01 | Outpatient (CLI) | payer MEDICAID, SELFPAY ==
[2018-12-01 11:51] VITALS: BMI 29.2
[2018-12-01 12:33] LABS: Absolute Lymphocyte Count 1.53 X10^3/uL (0.83-4.51); Absolute Neutrophil Count 8.3 X10^3/uL (2.0-7.7); Basophil# 0.05 X10^3/uL; Basophil% 0.5 % (0-1); Eosinophil# 0.11 X10^3/uL; Hematocrit 38.8 % (37-47); Hemoglobin 13.1 g/dL (12.0-15.0); Lymphocyte # 1.53 X10^3/ul (4.0); Lymphocyte % 14.1 % (19-41); Mean Corp Hgb Conc 33.8 g/dL (32-36); Mean Corpuscular Volume 91.7 fL (81-99); Mean Platelet Vol. 10.9 fl (6.2-12.0); Monocyte# 0.83 X10^3/uL; Monocyte% 7.6 % (0-10); NRBC Flagged by Analyzer 0 % (0-5); Neutrophil % 76.3 % (47-70); Platelet Count 288 K/mm3 (150-450); RBC Distribution Width CV 12.2 % (11.6-14.6); RBC Distribution Width SD 40.7 fl (35.1-43.9); Red Blood Count 4.23 M/mm3 (4.2-5.4); White Blood Count 10.9 K/mm3 (4.4-11.0)
[2018-12-01 12:40] LABS: Protein, Urine (Random) < 6.0 mg/dL (<11.9)
[2018-12-01 13:09] LABS: ALB/GLOB Ratio 0.8 RATIO (0.9-2.4); AST(SGOT) 11 U/L (15-37); Alanine Aminotransfer ALT/SGPT 36 U/L (13-56); Albumin, Serum 2.9 g/dL (3.2-5.0); Alkaline Phosphatase 141 U/L (45-117); Anion Gap 6 (5-15); BUN 15 mg/dL (7-18); BUN/Creat Ratio 16.6 RATIO (10-20); Calcium,Total 9.2 mg/dL (8.5-10.1); Chloride 112 mmol/L (98-107); EST Glomerular Filtration Rate 79 mL/min (>60); Est Glom Filt Rate - Afr Amer 96 mL/min (>60); Globulin 3.7 g/dL (2.2-4.2); Glucose 65 mg/dL (74-106); Potassium 4.1 mmol/L (3.5-5.1); Protein, Total 6.6 g/dL (6.4-8.2); Sodium Level 143 mmol/L (136-145)
== END | disposition home or self-care (01) ==
LOC: LAB 12:01
PROVIDERS: Family Provider Family Medicine; PCP Family Medicine; Referring Provider Obstetrics & Gynecology; Visit Provider Obstetrics & Gynecology
DX: O13.9 Gestational [pregnancy-induced] hypertension without significant proteinuria, unspecified trimester (principal); Z3A.00 Weeks of gestation of pregnancy not specified
CPT/HCPCS: 36415; 80053; 82570; 84156; 85025

== ENCOUNTER → 2020-07-05 14:47 | Outpatient (CLI) | payer MEDICAID, SELFPAY ==
--- NOTE | 2020-07-05 13:45 | LIP_PTH ---
PATIENT: MICHAELA LOBATO LOC: [facility] U#:[id number] AGE/SX: 34/F ROOM: RE07/05/[address]: Dr. Maxime Zaragoza MD : 1990 BED: DIS: SPEC #: [id number] RECD: 07/05/20 14:21 STATUS: VICTORIANO NILE #: [id number] OPAL: 07/05/20 13:[address]: Maxime Zaragoza DEPT: SURGICAL PATHOLOGY RECD BY: Emma Fields ENTERED: 07/06/20 07:30 SP TYPE: LIPOMA OTHR DR: Dr. Graeme Mendoza MD Tissues: Soft tissues, NOS Procedures: Surgery Specimen Level III HEADER OPERATION: Excision of left clavicular lipoma PRE-OP DIAGNOSIS: Subcutaneous mass TISSUE SUBMITTED: Left clavicular subcutaneous mass MICROSCOPIC DIAGNOSIS Left clavicular subcutaneous mass, excision: Mature adipose tissue, consistent with lipoma. WILLIAM:janis 07/07/2020 MICROSCOPIC DESCRIPTION Slides are reviewed. GROSS DESCRIPTION Received in fixative is one container labeled with the patient's name and designated left clavicular lipoma. The specimen consists of a piece of vasques-yellow adipose tissue measuring 4.5 x 3 x 2 cm. The specimen is serially sectioned and reveal yellow adipose cut surfaces without area of hemorrhage, necrosis of cystic degeneration. Distributor Cleaner sections are submitted in two cassettes. / SJ:janis 07/06/20 TC:1 CPT: 17936
== END ==
PROVIDERS: PCP Family Medicine; Referring Provider Surgery; Visit Provider Surgery
DX: D17.39 Benign lipomatous neoplasm of skin and subcutaneous tissue of other sites (principal)
CPT/HCPCS: 88304

== ENCOUNTER → 2020-07-17 12:19 | Outpatient (CLI) | payer MEDICAID, SELFPAY ==
[2020-07-17 15:40] LABS: hCG Titer Quant., Serum 455 mIU/mL (1-3)
== END ==
PROVIDERS: PCP Family Medicine; Visit Provider Obstetrics & Gynecology
DX: N91.2 Amenorrhea, unspecified (principal)
CPT/HCPCS: 36415; 84702

== ENCOUNTER → 2020-07-19 11:51 | Outpatient (CLI) | payer MEDICAID, SELFPAY ==
[2020-07-19 15:54] LABS: hCG Titer Quant., Serum 976 mIU/mL (1-3)
== END ==
PROVIDERS: Obstetrics & Gynecology; PCP Family Medicine; Referring Provider Family Medicine; Visit Provider Family Medicine
DX: N91.2 Amenorrhea, unspecified (principal)
CPT/HCPCS: 36415; 84702

== ENCOUNTER 2020-07-29 12:10 | Emergency (ER) | payer MEDICAID, SELFPAY ==
[2020-07-29 12:10] VITALS: BP 132/82; PULSE 95; RESP 16; TEMP 37.1; O2SAT 100; BMI 30.7
--- NOTE | 2020-07-29 12:21 | EKG12_ITS ---
Test Reason : Blood Pressure : / mmHG Vent. Rate : 085 BPM Atrial Rate : 085 BPM P-R Int : 138 ms QRS Dur : 080 ms QT Int : 348 ms P-R-T Axes : 048 000 004 degrees QTc Int : 414 ms Normal sinus rhythm with sinus arrhythmia Minimal voltage criteria for LVH, may be normal variant Borderline ECG Confirmed by RODOLFO BUCKNER, VANESSA ([id number]), department editor ELLIE GUEVARA ([id number]) on 07/31/2020 1:10:14 PM Referred By: LATHA Confirmed By:VANESSA REYNOLDS MD
--- NOTE | 2020-07-29 12:21 | CT_ITS ---
STUDY: CTA HEAD AND NECK WITH CONTRAST REASON FOR EXAM: Female, 29 years old. TIA blurred vision and right-sided numbness RADIATION DOSAGE (If Supplied By Facility): CTDIvol = ( 26.76 ) mGy, DLP = ( 1464.88 ) mGycm TECHNIQUE: CT head without contrast. CT angiography was performed with a multi-detector CT scanner. Data acquisition was obtained from the skull base through the vertex following intravenous administration of 100 cc isovue 370. MIP images were reconstructed from the axial data set. Post-processing of the angiographic images was performed, with multiplanar reformation and 3D reconstruction. Individualized dose optimization techniques were used for this CT. COMPARISON: No relevant priors. FINDINGS: Normal bilateral petrous carotid arteries. Normal right cavernous carotid artery with a normal supraclinoid bifurcation. Normal left cavernous carotid artery with a normal supraclinoid bifurcation. Normal right A1 segments of the anterior cerebral artery. Normal left A1 segments of the anterior cerebral artery. Normal intact anterior communicating artery (ACOM). Normal bilateral A2 segments of the anterior cerebral arteries. Normal right M1 and M2 segments of the middle cerebral arteries, with a normal M1 bifurcation. Normal left M1 and M2 segments of the middle cerebral arteries, with a normal M1 bifurcation. Normal right posterior communicating artery (PCOM). Normal left posterior communicating artery (PCOM). Normal bilateral vertebral arteries. Normal basilar artery with a normal basilar bifurcation. The visualized bilateral superior cerebellar (SCA) arteries are normal. Normal bilateral P1, P2 and visualized P3 segments of the posterior cerebral arteries. There is no demonstrated aneurysm of the [place] of [place]. There is no demonstrated abnormality of the visualized brain. AORTIC ARCH: Normal visualized aortic arch. Normal origins of the brachiocephalic, left common carotid, and left subclavian arteries. RIGHT CAROTID ARTERIES: Normal right common carotid artery (CCA). Normal right common carotid bulb. Normal origin of the right internal carotid (ICA) artery without a hemodynamically significant stenosis. Normal visualized cervical portion of the right internal carotid artery. Normal origin of the right external carotid artery (ECA). LEFT CAROTID ARTERIES: Normal left common carotid artery (CCA). Normal left common carotid bulb. Normal origin of the left internal carotid (ICA) artery without a hemodynamically significant stenosis. Normal visualized cervical portion of the left internal carotid artery. Normal origin of the left external carotid artery (ECA). VERTEBRAL ARTERIES: Normal bilateral vertebral arteries. Brain parenchyma is normal. Soft tissues of the neck are normal. CT/CTA Head AND Neck W/ Contrast IMPRESSION: Normal CTA Head and neck with contrast. Normal CT head. Electronically Signed: Rangel Patino MD at 13:44 EDT Tel , Service support ,
--- NOTE | 2020-07-29 12:24 | ED.VIS.STROK ---
HPI History of Present Illness Chief Complaint: Numb/Ting Informant: patient and spouse/S.O. Onset/Context/Timing Onset: Today Timing: - (Resolved) Quality and Location: Positive for Right Face Paresthesia, Right Arm Parasthesia and Expressive Aphasia Current Severity: 0/10 Maximum Severity: Moderate Associated Symptoms Associated Symptoms: Negative for Headache Narrative Narrative: Patient presents via EMS secondary to neuro symptoms. Patient is currently 7 weeks . She states she was relaxing at home this morning when she started noticing some vision changes out of her right eye. She states everything got blurry and seemed to have a black halo around it. This was followed by numbness to her right thumb that spread up her arm and onto the right side of her face around her mouth. Patient states when she went to find her she had difficulty getting words out. She felt that she was stuttering and having trouble speaking. She reports speech problems lasted approximately 10 minutes. EMS was called and patient's symptoms seem to have resolved just as squad arrived. They estimate her neuro symptoms lasted approximately 1 hour total. [facility] Medical History (Updated 07/29/20 @ 16:[address] Susan Bingham MD) Anxiety Home Medications prenat.vits,carmel,xld-[id number]-cpfrt 1 tab PO QDAY 10/01/17 [History Last Taken 11/23/18 22:00 1 tab] Allergy/AdvReac Type Severity Reaction Status Date / Time No Known Allergies Allergy Verified 07/29/20 12:14 Family History Father Hypertension Fibromyalgia Mother Anxiety Surgical History excision lipoma left clavicular region (~07/05/20) History of tonsillectomy Social History (Updated 07/10/20 @ 16:11 by Brenda FELIPE PA-C) Smoking Status: Never smoker alcohol intake: current details: pre substance use type: does not use caffeine: Yes what type of physical activity do you participate in: none seatbelt use: always do you feel safe at home: Yes additional social history: Patient works at [employer] [facility] [employer] [employer] [facility] ROS ED Constitutional Constitutional ED: Denies chills or fever(s) Eyes Eyes: Denies change in vision ENT ENT ED: Denies sore throat Cardiovascular Cardiovascular: Denies chest pain Respiratory/Chest Respiratory/Chest: Denies cough or dyspnea Gastrointestinal Gastrointestinal: Denies abdominal pain, diarrhea, nausea or vomiting Genitourinary Genitourinary ED: Denies dysuria Musculoskeletal Musculoskeletal: Denies back pain Integumentary Denies rash Neurologic Neurologic: Reports paresthesias and other Details: Difficulty speaking, vision change right eye ; Denies headache(s) or weakness Psychiatric Psychiatric: Denies anxiety or depression Endocrine Endocrinology: Denies polydipsia or polyuria Allergic/Immunologic Allergic/Immunologic ED: Denies urticaria EXAM Physical Exam Const Vital Signs: 07/29/20 12:10 07/29/20 13:41 07/29/20 14:33 Temperature 98.8 F Temperature Source Oral Pulse Rate 95 84 97 Respiratory Rate 16 18 18 Blood Pressure 132/82 H 118/63 126/89 H Blood Pressure Mean 98 81 101 Pulse Ox 100 100 99 Oxygen Delivery Method Room Air Room Air Room Air Positive well nourished and well developed General Appearance ED: well developed HEENT Reports normocephalic and head/scalp atraumatic Eyes PERRL and EOMs intact bilaterally Neck supple Chest Wall inspection of chest normal and palpation of chest normal Resp normal respiratory effort and clear to auscultation bilaterally Cardio regular rate and regular rhythm GI normal to inspection, nondistended, normoactive bowel sounds Palpation: soft Back/Spine no CVA tenderness Extremity normal to inspection Neuro oriented x3 and no sensory deficits noted Sensorium / Orientation: alert Motor Exam: strength 5/5 throughout Psych mental status grossly normal Skin no rashes or lesions noted STROKE Vital Signs/Narrative: Vital Signs Pulse Resp BP Pulse Ox 07/29/20 14:33 97 18 126/89 H 99 07/29/20 13:41 84 18 118/63 100 NIHSS 12:20: 1a Level of Consciousness: 0 1b LOC Questions (Score 2 if aphasic/stupor): 0 1c LOC Commands (Only score 1st attempt): 0 2 Best Gaze (If aphasic, use reflexive mvmts.): 0 3 Visual: 0 4 Facial Palsy: 0 5 Motor Arm Right (UN = amputation/fusion): 0 5 Motor Arm Left: 0 6 Motor Leg Right: 0 6 Motor Leg Left: 0 7 Limb ataxia (Only + if out of proportion): 0 8 Sensory (Aphasia/stupor=0 or 1, coma=2): 0 9 Best Language: 0 10 Dysarthria (mute, coma=2, intubated=UN): 0 11 Extinction and Inattention (only scored if +): 0 Total Score: 0 MDM MDM MDM Narrative Medical decision making narrative: Patient had an NIH score of 0 on arrival. Blood work and EKG along with CTA of head and neck are ordered. Lab Data Attestation: I reviewed the patient's lab results. Labs: Laboratory Results - last 24 hr 07/29/20 07/29/20 12:20 12:20 WBC 8.2 RBC 4.62 Hgb 13.7 Hct 40.8 MCV 88.3 MCH 29.7 MCHC 33.6 RDW Std Deviation 39.4 RDW Coeff of Jacobo 12.2 Plt Count 282 MPV 11.3 Immature Gran % (Auto) 0.200 Neut % (Auto) 70.3 H Lymph % (Auto) 20.4 [place] % (Auto) 8.1 Eos % (Auto) 0.5 Baso % (Auto) 0.5 Absolute Neuts (auto) 5.8 Absolute Lymphs (auto) 1.68 Nucleated RBC % 0 Sodium 138 Potassium 3.9 Chloride 109 H Carbon Dioxide 25.0 Anion Gap 4 L BUN 12 Creatinine 0.66 Estim Creat Clear Calc 100.37 Est GFR (MDRD) Af Amer 136 Est GFR (MDRD) Non-Af 112 BUN/Creatinine Ratio 18.2 Glucose 107 H Calcium 9.1 Radiography Diagnostic Testing: Radiology Impression Head/Neck CTA 07/29/20 12:21 IMPRESSION: Normal CTA Head and neck with contrast. Normal CT head. Electronically Signed: Rangel Patino MD at 13:44 EDT Tel , Service support , Brain MRI 07/29/20 14:47 IMPRESSION: 1. Patent dural venous sinuses. Electronically Signed: Rangel Patino MD at 16:02 EDT Tel , Service support , EKG Initial EKG: Attestation: I personally reviewed and interpreted this EKG as follows: Interpretation: Sinus Rhythm (Sinus 85 with no acute ischemia.) Treatment and Re-Evaluation Comments:: On repeat examination patient is resting comfortably has had no recurrent symptoms. I did get an SOC neurology consult. They examined her on the robot computer and called me with their concerns. Neurologist does not feel this represents a TIA as the symptoms were stepwise in onset. He does raise concern about a possible venous sinus thrombosis in light of her . If she has found to have this he believes her symptoms may be secondary to a focal seizure. If not he believes this is likely a migrainous equivalent. I was able to get an MRV today which reveals no evidence of thrombosis. Test results discussed with patient and at bedside. They are comfortable with close follow-up. I will also refer to neurology for follow-up as needed. Stroke Documentation Questions Stroke Team Activated: No Discharge Plan Triage Chief Complaint: Numb/Ting ED Provider: Susan Bingham Dx/Rx/DC Orders Clinical Impression: Atypical migraine Instructions: Migraines and Cluster Headaches Prescriptions: No Action prenat.vits,carmel,vto-dynq-awbfr [ Vitamin] tablet 1 tab PO QDAY RF: 0 Primary Care Provider: Graeme Mendoza Referrals: Graeme Mendoza MD [Primary Care Provider] - 5-7 Days Shon Lyle MD [STAFF PHYSICIAN] - As Needed Disposition Disposition: Home, self care
[2020-07-29] MEDS: 0.9% Normal Saline 1,000 ML 150 ML IV (12:33)
[2020-07-29 13:00] LABS: Absolute Lymphocyte Count 1.68 X10^3/uL (0.83-4.51); Absolute Neutrophil Count 5.8 X10^3/uL (2.0-7.7); Basophil# 0.04 X10^3/uL; Basophil% 0.5 % (0-1); Eosinophil# 0.04 X10^3/uL; Eosinophils% 0.5 % (0-5); Hematocrit 40.8 % (37-47); Hemoglobin 13.7 g/dL (12.0-15.0); Lymphocyte # 1.68 X10^3/ul (0.83-4.51); Lymphocyte % 20.4 % (19-41); Mean Corp Hgb Conc 33.6 g/dL (32-36); Mean Corpuscular Hgb 29.7 pg (27.0-32.0); Mean Corpuscular Volume 88.3 fL (81-99); Mean Platelet Vol. 11.3 fl (6.2-12.0); Monocyte# 0.67 X10^3/uL; Monocyte% 8.1 % (0-10); NRBC Flagged by Analyzer 0 % (0-5); Neutrophil # 5.79 X10^3/uL (2.7-7.7); Neutrophil % 70.3 % (47-70); Platelet Count 282 K/mm3 (150-450); RBC Distribution Width CV 12.2 % (11.6-14.6); RBC Distribution Width SD 39.4 fl (35.1-43.9); Red Blood Count 4.62 M/mm3 (4.2-5.4); White Blood Count 8.2 K/mm3 (4.4-11.0)
[2020-07-29 13:06] LABS: Anion Gap 4 (5-15); BUN 12 mg/dL (7-18); BUN/Creat Ratio 18.2 RATIO (10-20); Calcium,Total 9.1 mg/dL (8.5-10.1); Chloride 109 mmol/L (98-107); Creatinine, Serum 0.66 mg/dL (0.55-1.02); EST Glomerular Filtration Rate 112 mL/min (>60); Est Glom Filt Rate - Afr Amer 136 mL/min (>60); Estimated Creatinine Clearance 100.37 ml/min; Glucose 107 mg/dL (74-106); Potassium 3.9 mmol/L (3.5-5.1); Sodium Level 138 mmol/L (136-145)
[2020-07-29 13:41] VITALS: BP 118/63; PULSE 84; RESP 18; O2SAT 100
--- NOTE | 2020-07-29 13:55 | TELEMED_ITS ---
[facility] Telemed has confirmed receipt of a request for visit. This document confirms receipt of the order initiating the consult. To find the results of the consultation, please view the patient's reports for the scanned Telemed Consult.
[2020-07-29 14:33] VITALS: BP 126/89; PULSE 97; RESP 18; O2SAT 99
--- NOTE | 2020-07-29 14:47 | MRI_ITS ---
STUDY: EXAMINATION - MRV BRAIN WITHOUT CONTRAST REASON FOR EXAM: Female, 29 years old. stroke like symptoms -- 7 weeks . R/O dural venous thrombus TECHNIQUE: 3D jboo-qr-stgeks (TOF) imaging was performed in a johnathon MRI scanner. COMPARISON: 29 Jul 2020 earlier same day FINDINGS: Appearance is stable since earlier exam. Dural venous sinuses are patent. 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 MRI/MRV Head Without Contrast IMPRESSION: 1. Patent dural venous sinuses. Electronically Signed: Rangel Patino MD at 16:02 EDT Tel , Service support ,
[2020-07-29 16:25] VITALS: BP 120/67; PULSE 88; RESP 16; O2SAT 100
== END 2020-07-29 16:32 | disposition home or self-care (01) ==
PROVIDERS: Emergency Provider Emergency Medicine; PCP Family Medicine
DX: O99.351 Diseases of the nervous system complicating pregnancy, first trimester (principal); G43.009 Migraine without aura, not intractable, without status migrainosus; Z3A.01 Less than 8 weeks gestation of pregnancy
CPT/HCPCS: 70496; 70498; 70544; 80048; 85025; 93005; 96360; 96361; 99285; J7030; Q9967; A4216

== ENCOUNTER → 2020-08-07 | Outpatient (CLI) | payer MEDICAID, SELFPAY ==
[2020-08-07 13:42] VITALS: BMI 30.7
[2020-08-07 18:37] LABS: Amphetamine Urine VISTA NEGATIVE (<1000 ng/mL); Barbiturate Urine VISTA NEGATIVE (< 200 ng/mL); Benzodiazepine Urine VISTA NEGATIVE (< 200 ng/mL); Cocaine Urine VISTA NEGATIVE (< 300 ng/mL); Ecstacy Urine VISTA NEGATIVE (< 500 ng/mL); Methadone Urine VISTA NEGATIVE (< 300 ng/mL); PCP Urine VISTA NEGATIVE (< 25 ng/mL); THC Urine VISTA NEGATIVE (< 50 ng/mL); Vista UDS pH Range 5
[2020-08-09 20:08] LABS: Chlamydia By Nucleic Acid AMP Negative (Negative)
[2020-08-09 21:00] LABS: Gonococcus By Nucleic Acid AMP Negative (Negative)
[2020-08-10 21:22] LABS: HPV Reflexed? NOT INDICATED
== END | disposition home or self-care (01) ==
LOC: LABSPEC 16:43
PROVIDERS: PCP Family Medicine; Referring Provider Obstetrics & Gynecology; Visit Provider Obstetrics & Gynecology
DX: Z34.90 Encounter for supervision of normal pregnancy, unspecified, unspecified trimester (principal)
CPT/HCPCS: 80307; 87086; 87491; 87591; 88175; G0145

== ENCOUNTER → 2020-08-09 10:35 | Outpatient (CLI) | payer MEDICAID, SELFPAY ==
[2020-08-07 13:42] VITALS: BMI 30.7
[2020-08-09 12:17] LABS: Absolute Lymphocyte Count 2.07 X10^3/uL (0.83-4.51); Absolute Neutrophil Count 4.7 X10^3/uL (2.0-7.7); Basophil# 0.04 X10^3/uL; Basophil% 0.5 % (0-1); Eosinophil# 0.06 X10^3/uL; Eosinophils% 0.8 % (0-5); Hematocrit 40.7 % (37-47); Hemoglobin 13.7 g/dL (12.0-15.0); Lymphocyte # 2.07 X10^3/ul (0.83-4.51); Lymphocyte % 27.7 % (19-41); Mean Corp Hgb Conc 33.7 g/dL (32-36); Mean Corpuscular Hgb 29.8 pg (27.0-32.0); Mean Corpuscular Volume 88.7 fL (81-99); Mean Platelet Vol. 11.6 fl (6.2-12.0); Monocyte# 0.58 X10^3/uL; Monocyte% 7.8 % (0-10); NRBC Flagged by Analyzer 0 % (0-5); Neutrophil # 4.69 X10^3/uL (2.7-7.7); Neutrophil % 62.9 % (47-70); Platelet Count 264 K/mm3 (150-450); RBC Distribution Width CV 12.2 % (11.6-14.6); RBC Distribution Width SD 39.8 fl (35.1-43.9); Red Blood Count 4.59 M/mm3 (4.2-5.4); White Blood Count 7.5 K/mm3 (4.4-11.0)
[2020-08-09 12:37] LABS: ALB/GLOB Ratio 1.1 RATIO (0.9-2.4); AST(SGOT) 9 U/L (15-37); Alanine Aminotransfer ALT/SGPT 21 U/L (13-56); Albumin, Serum 3.6 g/dL (3.2-5.0); Alkaline Phosphatase 97 U/L (45-117); Anion Gap 6 (5-15); BUN 12 mg/dL (7-18); BUN/Creat Ratio 19.6 RATIO (10-20); Calcium,Total 8.8 mg/dL (8.5-10.1); Chloride 108 mmol/L (98-107); Creatinine, Serum 0.61 mg/dL (0.55-1.02); EST Glomerular Filtration Rate 123 mL/min (>60); Est Glom Filt Rate - Afr Amer 148 mL/min (>60); Globulin 3.2 g/dL (2.2-4.2); Glucose 102 mg/dL (74-106); Potassium 3.8 mmol/L (3.5-5.1); Protein, Total 6.8 g/dL (6.4-8.2); Sodium Level 138 mmol/L (136-145)
[2020-08-09 13:27] LABS: HIV - WCH Non-Reactive (Nonreactive); Hepatitis B Surface Antigen Non-Reactive (Nonreactive); Hepatitis C Antibody Non-Reactive (Nonreactive); Rubella IgG Reactive (Nonreactive); Syphilis Antibodies Non-reactive
[2020-08-09 15:29] LABS: Protein, Urine (Random) 10.3 mg/dL (<11.9); Protein:Creat Ratio 61 mg/g CRE (0-200)
[2020-08-09 18:09] LABS: Chlamydia Trachomatis by PCR Negative (Negative); Neisserai gonorrhoeae by PCR Negative (Negative); Probe Check PASS; Sample Adequacy Control PASS; Specimen Processing Control PASS
== END ==
PROVIDERS: Obstetrics & Gynecology; PCP Family Medicine; Referring Provider Family Medicine; Visit Provider Family Medicine
DX: Z34.90 Encounter for supervision of normal pregnancy, unspecified, unspecified trimester (principal); Z87.59 Personal history of other complications of pregnancy, childbirth and the puerperium
CPT/HCPCS: 36415; 80053; 82570; 84156; 85025; 86703; 86762; 86780; 86803; 86850; 86900; 86901; 87340; 87491; 87591

== ENCOUNTER → 2020-12-25 10:42 | Outpatient (CLI) | payer MEDICAID, SELFPAY ==
[2020-12-25 10:55] LABS: Absolute Lymphocyte Count 1.76 X10^3/uL (0.83-4.51); Basophil# 0.04 X10^3/uL; Basophil% 0.4 % (0-1); Eosinophil# 0.04 X10^3/uL; Eosinophils% 0.4 % (0-5); Hematocrit 36.5 % (37-47); Hemoglobin 12.1 g/dL (12.0-15.0); Lymphocyte # 1.76 X10^3/ul (0.83-4.51); Lymphocyte % 18.2 % (19-41); Mean Corp Hgb Conc 33.2 g/dL (32-36); Mean Corpuscular Hgb 30.1 pg (27.0-32.0); Mean Corpuscular Volume 90.8 fL (81-99); Mean Platelet Vol. 10.9 fl (6.2-12.0); Monocyte# 0.77 X10^3/uL; NRBC Flagged by Analyzer 0 % (0-5); Neutrophil # 6.98 X10^3/uL (2.7-7.7); Neutrophil % 72.2 % (47-70); Platelet Count 255 K/mm3 (150-450); RBC Distribution Width CV 12.7 % (11.6-14.6); RBC Distribution Width SD 41.4 fl (35.1-43.9); Red Blood Count 4.02 M/mm3 (4.2-5.4); White Blood Count 9.7 K/mm3 (4.4-11.0)
[2020-12-25 11:16] LABS: Glucose Challenge Gest 1H 50g 95 mg/dL (70-140)
== END ==
PROVIDERS: PCP Family Medicine; Referring Provider Obstetrics & Gynecology; Visit Provider Obstetrics & Gynecology
DX: O09.90 Supervision of high risk pregnancy, unspecified, unspecified trimester (principal); Z3A.00 Weeks of gestation of pregnancy not specified
CPT/HCPCS: 36415; 82950; 85025

== ENCOUNTER → 2021-02-22 12:36 | Outpatient (CLI) | payer MEDICAID, SELFPAY | PROVIDERS: PCP Family Medicine; Referring Provider Obstetrics & Gynecology; Visit Provider Obstetrics & Gynecology | DX: Z34.93 Encounter for supervision of normal pregnancy, unspecified, third trimester (principal) | CPT/HCPCS: 87081 ==

== ENCOUNTER 2021-03-11 20:05 | Outpatient (CLI) | payer MEDICAID, SELFPAY ==
[2021-03-11 20:15] VITALS: BMI 33.0
[2021-03-11 20:17] VITALS: TEMP 36.8
[2021-03-11 20:18] VITALS: PULSE 131; O2SAT 96
[2021-03-11 20:22] VITALS: BP 120/74; PULSE 136
[2021-03-11 21:03] LABS: ROM Internal Control Test YES-OK TO RESULT pt. (Internal QC); ROM Patient Test Negative (Negative)
--- NOTE | 2021-03-12 11:48 | OB.TRI.PN ---
Progress Notes Date of Service: 03/12/21 Progress Note: Patient presents for triage evaluation secondary to questionable ROM FHT: 140 Moderate variability reactive no decelerations category I tracing [place]: irregualr Contractions Assessment and plan: amniotic membranes intact false labor no cervical change rom neg Reactive NST, reassuring maternal and status patient discharged to home to follow-up as scheduled. See problem list details for additional plan information. Laboratory Studies: Laboratory Tests 03/11/21 Range/Units 20:25 Vag Amniotic Fld Detect Negative (Negative) Charges/Coding Procedures Urinary/Genital 52xxx-59xxx: [id number] non-stress test Interp Assessment & Plan (1) Intact amniotic membranes:
== END 2021-03-11 21:23 | disposition home or self-care (01) ==
LOC: WPOUT 20:10 → WP 20:11
PROVIDERS: PCP Family Medicine; Visit Provider Obstetrics & Gynecology
DX: O47.9 False labor, unspecified (principal); Z3A.00 Weeks of gestation of pregnancy not specified
CPT/HCPCS: 59025; 59050; 84112; 99218; G0378

== ENCOUNTER 2021-03-13 23:20 | Inpatient (IN) | payer MEDICAID, SELFPAY ==
[2021-03-13 22:43] VITALS: BMI 33.0
[2021-03-13 22:48] VITALS: BP 123/89; PULSE 123
[2021-03-13 22:49] VITALS: TEMP 36.7
[2021-03-13 23:18] LABS: ROM Internal Control Test YES-OK TO RESULT pt. (Internal QC)
[2021-03-13 23:19] LABS: ROM Patient Test POSITIVE (Negative)
[2021-03-14] VITALS (72 sets, daily range): BP systolic 95–173; BP diastolic 56–113; PULSE 57–166; RESP 16–18; TEMP 36.3–37.4; O2SAT 96–100
[2021-03-14 00:55] LABS: Absolute Lymphocyte Count 1.09 X10^3/uL (0.83-4.51); Absolute Neutrophil Count 7.5 X10^3/uL (2.0-7.7); Basophil# 0.02 X10^3/uL; Basophil% 0.2 % (0-1); Eosinophil# 0.02 X10^3/uL; Eosinophils% 0.2 % (0-5); Lymphocyte # 1.09 X10^3/ul (0.83-4.51); Lymphocyte % 11.5 % (19-41); Mean Corp Hgb Conc 34.2 g/dL (32-36); Mean Corpuscular Hgb 30.2 pg (27.0-32.0); Mean Corpuscular Volume 88.4 fL (81-99); Mean Platelet Vol. 12.6 fl (6.2-12.0); Monocyte% 8.5 % (0-10); NRBC Flagged by Analyzer 0 % (0-5); Neutrophil # 7.48 X10^3/uL (2.7-7.7); Neutrophil % 79.2 % (47-70); Platelet Count 165 K/mm3 (150-450); RBC Distribution Width CV 13.7 % (11.6-14.6); RBC Distribution Width SD 43.8 fl (35.1-43.9); White Blood Count 9.5 K/mm3 (4.4-11.0)
[2021-03-14] MEDS: Lactated Ringers 1,000 ML 50 ML IV (01:07)
[2021-03-14] MEDS: Oxytocin 30 units/NS 500 ml 30 UNITS/500 ML IV.SOLN IV (01:25)
--- NOTE | 2021-03-14 02:15 | HP.PCM.OB_ITS ---
HPI - General General Date of Admission: 03/13/21 HPI Narrative MICHAELA LOBATO, is a 30 F who presents with clear SROM no regular ctx, no vb good fm. Maternal Data Information TORO Calculator Estimated Delivery Date Method Current WG Current Estimate 03/19/21 LMP (Certain) 39w 2d Other Estimates 03/22/21 Ultrasound #1 38w 6d PFSH PFSH Medical History (Updated 03/14/21 @ 02:[address] Kelley Benz MD) Anxiety depression Pre-eclampsia Home Medications prenat.vits,carmel,xos-cmdt-xubab 1 tab PO QDAY 10/01/17 [History Last Taken 03/13/21] aspirin 81 mg chewable tablet 81 mg PO DAILY 09/21/20 [History Last Taken 03/12/21] Allergy/AdvReac Type Severity Reaction Status Date / Time No Known Allergies Allergy Verified 03/08/21 10:19 Family History Father Hypertension Fibromyalgia Mother Anxiety Grandmother Cancer lung Grandfather Cancer leukemia Father Hypertension Fibromyalgia Grandfather Hypertension Surgical History excision lipoma left clavicular region (~07/05/20) History of tonsillectomy Social History adopted: No household members: spouse and children number of children: 1 current occupation: [employer] Smoking Status: Never smoker alcohol intake: current details: pre substance use type: does not use caffeine: Yes what type of physical activity do you participate in: none seatbelt use: always do you feel safe at home: Yes additional social history: Patient works at [employer] History 3 Elective abortions Hx Para 1 Spontaneous abortions 1 Hx # Term Pregnancies Ectopic pregnancies Hx # Pregnancies Multiple births # of living children 1 Past Pregnancies Del. Date Name GA/Weeks Outcome Route Bth Weight Gen Labor Lgth Anesthesia Del Locatn Provider FOB 11/07/17 William 13 spontaneous Male pr ovider office MARCOS Clark 11/25/18 Anna Preeti 37 live - full term 6lbs 1oz Female 16 hour epidural [facility] MARCOS Clark Delivery Date: 11/07/17 No notes to display Delivery Date: 11/25/18 Cord around neck x2-tight; nuchal cord compression; GHTN:IOL 37 wk. Enlarged kidney Millie James Visit Details Expected Delivery Route/Plan Labor Preferences labor support person: Clark labor intervention preferences: none pain management options preferred: epidural cut cord/dad catch: yes : yes PP control planned: discussed possible routes of delivery and associated risks: [] special requests: [] Plans covid vaccine: non immune. counseled regarding risk of covid in vs vaccination and declined vaccination flu vaccine: declined tdap vaccine: declined rhogam: na LARC form signed: declined movement and labor precautions reviewed. Problem list reviewed and updated with the most current plan of care details and appropriate orders placed. Relevant counseling for the gestational age provided. Continue routine care and follow up unless otherwise noted in visit notes/problem list details OB Flowsheet Initial Weight: 165 lb Date -?-?-?-?-?-?-?-?-?-?-?-?- EGA Weight BP Urine Prot -?-?-?-?-?-?-?-?-?-?-?-?- Glucose FHR FuHt Pres Dilation -?-?-?-?-?-?-?-?-?-?-?-?- Effaced St Visit Note 08/07/20 -?-?-?-?-?-?-?-?-?-?-?-?- 8w 0d 165 lb (+0 oz) 120/88 -?-?-?-?-?-?-?-?-?-?-?-?- 145 -?-?-?-?-?-?-?-?-?-?-?-?- SM- CRL 1.2cm co ns with LMP 08/24/20 -?-?-?-?-?-?-?-?-?-?-?-?- 10w 3d 162 lb 2 oz (-2 lb 14 oz) 130/90 Negative -?-?-?-?-?-?-?-?-?-?-?-?- Negative 175 -?-?-?-?-?-?-?-?-?-?-?-?- GP - no cramping or bleeding. Nausea doing better without medication. 09/04/20 -?-?-?-?-?-?-?-?-?-?-?-?- 12w 0d 162 lb (-3 lb) 118/88 -?-?-?-?-?-?-?-?-?-?-?-?- 170 -?-?-?-?-?-?-?-?-?-?-?-?- SM- no vb lof cr amping 09/21/20 -?-?-?-?-?-?-?-?-?-?-?-?- 14w 3d 159 lb (-6 lb) 120/80 Negative -?-?-?--?-?-?-?-?-?-?-?-?- Negative 150 14 -?-?-?-?-?-?-?-?-?-?-?-?- Sm- no vb crampi ng 10/20/20 -?-?-?-?-?-?-?-?-?-?-?-?- 18w 4d 165 lb (+0 oz) 120/86 Negative -?-?-?-?-?-?-?-?-?-?-?-?- Negative 165 18 -?-?-?-?-?-?-?-?-?-?-?-?- SM- no vb crampi ng. 11/17/20 -?-?-?-?-?-?-?-?-?-?-?-?- 22w 4d 167 lb (+2 lb) 120/78 Negative -?-?-?-?-?-?-?-?-?-?-?-?- Negative 150 22 -?-?-?-?-?-?-?-?-?-?-?-?- SM- no vb lof oc casional cramping 12/14/20 -?-?-?-?-?-?-?-?-?-?-?-?- 26w 3d 175 lb 2 oz (+10 lb 2 oz) 116/84 Negative -?-?-?-?-?-?-?-?-?-?-?-?- Negative 150 26 -?-?-?-?-?-?-?-?-?-?-?-?- GP - no LOF, VB, DFM, ctx. Has sinus infection - safe med list provided 12/25/20 -?-?-?-?-?-?-?-?-?-?-?-?- 28w 0d 174 lb (+9 lb) 116/72 Negative -?-?-?-?-?-?-?-?-?-?-?-?- Negative 140 28 -?-?-?-?-?-?-?-?-?-?-?-?- SM- no vb lof go od fm no regular ctx 01/08/21 -?-?-?-?-?-?-?-?-?-?-?-?- 30w 0d 174 lb (+9 lb) Negative -?-?-?-?-?-?-?-?-?-?-?--?- Negative 140 30 -?-?-?-?-?-?-?-?-?-?-?-?- SM- no vb lof go od fm no reuglar ctx 01/25/21 -?-?-?-?-?-?-?-?-?-?-?-?- 32w 3d 176 lb (+11 lb) 126/70 Negative -?-?-?-?-?-?-?-?-?-?-?-?- Negative 155 32 -?-?-?-?-?-?-?-?-?-?-?-?- JV- no lof, vagi nal bleeding, or dec fm. no complaints other than some low back pain. 02/05/21 -?-?-?-?-?-?-?-?-?-?-?-?- 34w 0d 180 lb (+15 lb) 102/80 Negative -?-?-?--?-?-?-?-?-?-?-?-?- Negative 145 34 -?-?-?-?-?-?-?-?-?-?-?-?- SM- no vb lof go od fm no reuglar ctx 02/22/21 -?-?-?-?-?-?-?-?-?-?-?-?- 36w 3d 179 lb (+14 lb) 132/80 -?-?-?-?-?-?-?-?-?-?-?-?- 145 36 Cephalic 0.5 -?-?-?-?-?-?-?-?-?-?-?-?- SM- no vb lof go od fm nor egular ctx 03/01/21 -?-?-?-?-?-?-?-?-?-?-?-?- 37w 3d 181 lb 6 oz (+16 lb 6 oz) 94/60 -?-?-?-?-?-?-?-?-?-?-?-?- 145 37 Cephalic 1 -?-?-?-?-?-?-?-?-?-?-?-?- SM- no vb lof go od fm no regular ctx 03/08/21 -?-?-?-?-?-?-?-?-?-?-?-?- 38w 3d 180 lb 8 oz (+15 lb 8 oz) 130/88 Negative -?-?-?-?-?-?-?-?-?-?-?-?- Negative 137 38 Cephalic 1 -?-?-?-?-?-?-?-?-?-?-?-?- 30 -4 JV- no lof , vaginal bleeding, or dec fm. may plan for IOL on the if cx more favorable. (FOReddy's GF b-day is this day) 03/13/21 -?-?-?-?-?-?-?-?-?-?-?-?- 39w 1d 180 lb 15.992 oz (+15 lb 15.992 oz) 123/89 121/80 133/83 109/63 -?-?-?-?-?-?-?-?-?-?-?-?- -?-?-?-?-?-?-?-?-?-?-?-?- NST FHR Rate Baby A Baseline: 130 Variability:: Moderate Accelerations:: 15 x 15 Decelerations:: None NST Reactive:: Yes FHR Category:: Category I Uterine Activity:: irregular ROS Constitutional Constitutional: Reports systems reviewed and no addt'l complaints, except as documented Eyes Eyes: Denies change in vision ENT HEENT: Reports systems reviewed and no addt'l complaints, except as documented; Denies headache(s) Cardiovascular Cardiovascular: Reports systems reviewed and no addt'l complaints, except as documented; Denies chest pain or dyspnea Respiratory/Chest Respiratory/Chest: Reports systems reviewed and no addt'l complaints, except as documented Gastrointestinal Gastrointestinal: Reports systems reviewed and no addt'l complaints, except as documented; Denies abdominal pain Genitourinary Genitourinary: Reports systems reviewed and no addt'l complaints, except as documented, contractions Details: present (irregular) and movement Details: present; Denies dysuria or genital lesions Musculoskeletal Musculoskeletal: Reports systems reviewed and no addt'l complaints, except as documented Neurologic Neurologic: Reports systems reviewed and no addt'l complaints, except as documented Endocrine Endocrinology: Reports systems reviewed and no addt'l complaints, except as documented Vital Signs Vital Signs Vital Signs: 03/13/21 22:48 03/13/21 22:49 03/14/21 00:18 Temperature 98.1 F 98.2 F Temperature Source Temporal Temporal Pulse Rate 123 H 115 H Blood Pressure 123/89 H 121/80 H BP Systolic 123 121 BP Diastolic 89 80 Pulse Ox 98 03/14/21 01:01 03/14/21 02:02 03/14/21 02:03 Temperature 97.5 F L 97.9 F Temperature Source Temporal Temporal Pulse Rate 105 H 100 Blood Pressure 133/83 H 109/63 BP Systolic 133 109 BP Diastolic 83 63 Pulse Ox 98 Weight Weight: 180 lb 15.992 oz Body Mass Index (BMI) 33.0 Physical Exam Const alert, oriented x3, no apparent distress and healthy appearing HEENT normocephalic and moist oral mucous membranes Head and Scalp: atraumatic Neck full ROM, no lymphadenopathy, supple and thyroid normal General: trachea midline Lymph Lymphatic: no lymphadenopathy noted Chest inspection of chest normal Resp normal respiratory effort Cardio regular rate GI normal to inspection, nondistended, normoactive bowel sounds, soft to palpation and non-tender Inspection: gravid external exam normal Manual OB Exam: estimated gestational size appropriate, presentation cephalic, dilated, effaced and station Extremity normal to inspection General Extremity: Negative for edema Skin no rashes or lesions noted Neuro no focal motor deficits and deep tendon reflexes 2+ bilaterally Motor Exam: strength 5/5 throughout and clonus absent Psych mental status grossly normal Labs Labs Labs: Blood Type O POSITIVE Antibody Screen NEGATIVE Hct 38.0 % (37-47) Hgb 13.0 g/dL (12.0-15.0) Pap Smear Negative Obstetrics US Syphilis Total Ab Non-reactive Rubella IgG Antibody Reactive (Nonreactive) Hep Bs Antigen Non-Reactive (Nonreactive) Neisseria gonorrhoeae DNA (EDUARDO) Negative (Negative) HIV 1&2 Antibody Non-Reactive (Nonreactive) C.trachomatis DNA (PCR) Negative (Negative) Glucose 1 Hr 50 gm 95 mg/dL (70-140) Rhogam given: No Miscellaneous Test Assessment & Plan (1) : QUALIFIERS: Weeks of gestation: 38 weeks Qualified Code(s): Z3A.38 - 38 weeks gestation of COMMENT: genetic, carrier, and ntd screening declined. nl anatomy; GBS NEG (2) Supervision of high risk , antepartum: COMMENT: PRR TORO 03/19/21 GIRL Tisha PC:William(13 wk loss) Anna. Spouse Clark (3) History of pre-eclampsia: COMMENT: baseline nl preeclampsia labs and baby asa at 14 weeks (4) SROM (spontaneous rupture of membranes): COMMENT: admit, pitocin PRN, epi PRN. gbs neg
[2021-03-14] MEDS: Lactated Ringers 500 ML 999 ML IV ×2 (03:08→04:07)
[2021-03-14] MEDS: Mag Hydrox/Al Hydrox/Simeth 30 ML UDC PO (03:21)
[2021-03-14] MEDS: fentaNYL-bupivacaine (epidural) 100 ML BAG EPIDURAL ×2 (04:04→05:06)
[2021-03-14] MEDS: Lactated Ringers 1,000 ML 999 ML IV (05:04)
[2021-03-14] MEDS: 0.9% Normal Saline 1,000 ML IV.SOLN. 300 ML INTRA-UTER (05:41)
[2021-03-14] MEDS: Oxytocin 30 units/NS 500 ml 30 UNITS/500 ML IV.SOLN 334 UNITS IV (08:54)
--- NOTE | 2021-03-14 09:28 | OP.PCM_ITS ---
Maternal Data Information TORO Calculator Estimated Delivery Date Method Current WG Current Estimate 03/19/21 LMP (Certain) 39w 2d Other Estimates 03/22/21 Ultrasound #1 38w 6d Vaginal Delivery Maternal Presentation Maternal Presentation: Active Labor Type of Induction: Pitocin Operative Information Date of Procedure: 03/14/21 Pre-Operative Diagnosis: 39 weeks in active labor Post-Operative Diagnosis: 39 weeks in active labor Surgery / Procedure Performed: Spontaneous Vaginal Delivery and - Type of Anesthesia: Epidural Drain: ANA LILIA to bulb suction Estimated Blood Loss: 100cc Findings Description of Procedure: Patient began pushing and delivered the head in the FLORA presentation. The head was delivered atraumatically . The anterior and posterior shoulders delivered without complication followed by the rest of the infant and the infant was placed on the maternal abdomen. Delayed cord clamping was employed for approximately 60 seconds. Cord was clamped and cut and gentle traction was applied to the cord and the placenta delivered spontaneously immediately following it was noted to be intact with three-vessel cord. The perineum and vagina were inspected and noted to have a 1st degree perineal laceration that was repaired using a 2-0 vicryl suture . EBL was 100 cc. Patient and infant tolerated delivery well. Presentation: FLORA Amniotic Fluid Description: Clear Placental Delivery Description: Spontaneous Placenta Disposition: [facility] Cord Vessel Description: 3 Vessels Cord Entanglement: None Infant A Gender: Female (1 minute): 8 (5 minute): 9 Delayed Cord Clamping: Yes Post Vaginal Delivery Medications Given After Delivery: IV Pitocin Episiotomy Description: None Laceration: Midline and 1st degree Complication Complications: None Admit VTE Documentation VTE Present on Admission: Yes Multi Select Codes Urinary/Genital Urinary/Genital CPT Codes: 63572 Vaginal Delivery [facility]
[2021-03-14] MEDS: Acetaminophen 500 MG Tablet PO ×2 (09:37→17:31)
[2021-03-14] MEDS: Loperamide 2 MG Capsule 4 MG PO (18:33)
[2021-03-14] MEDS: Ibuprofen 600 MG Tablet PO (22:19)
[2021-03-15 00:28] VITALS: BP 110/67; PULSE 87; RESP 18; TEMP 36.1
[2021-03-15] MEDS: Loperamide 2 MG Capsule PO ×2 (00:30→10:25)
[2021-03-15 04:57] VITALS: BP 115/72; PULSE 80; RESP 18; TEMP 36.3
[2021-03-15 04:58] VITALS: BP 115/72; PULSE 80; TEMP 36.3
--- NOTE | 2021-03-15 07:42 | PCM.DC ---
Discharge Instructions Diet Discharge Diet: No restrictions Activity Discharge Activity: Return to Normal Activity, May Not Drive (while taking narcotic pain medications.) and May Shower May resume sexual activity in: 4-6 weeks Dressing / Incision Call your doctor if your incision/area has: Continuous Slow Oozing, Sudden Increased Bleeding, Increased Pain/ Swelling, Increased Redness and Foul Smelling Discharge Follow Up Care Please Follow Up With: Susan Larios DO When: Call [phone] to make an appointment with your doctor in 6 weeks. If you had elevated blood pressure or 4th degree laceration, you will need to be seen in 2 weeks. Test Results: Test results from this visit will be discussed in further detail at your follow-up appointment, if applicable. Discharge Plan Admission Admit Date/Time: 03/13/21 23:20 Primary Reason for Your Visit: vaginal delivery Attending Provider: Kelley Benz Primary Care Provider: Graeme Mendoza Discharge Orders/Prescriptions Prescriptions: New ibuprofen 800 mg tablet 800 mg PO Q8H PRN (Reason: pain) 7 Days Qty: 30 RF: 0 docusate sodium [Colace] 100 mg capsule 100 mg PO DAILY 14 Days Qty: 14 RF: 0 Continued prenat.vits,carmel,qrw-yhto-ecngx [ Vitamin] tablet 1 tab PO QDAY RF: 0 Discontinued aspirin 81 mg tablet,chewable 81 mg PO DAILY RF: 0 Referrals / Follow Up: Graeme Mendoza MD [Primary Care Provider] - Disposition Disposition (needs filled in before D/C Order can be placed): Home, Self Care
--- NOTE | 2021-03-15 07:48 | PN.OBGYN_ITS ---
Subjective Subjective Patient doing well without complaints. Tolerating PO. Ambulating and voiding without difficulty. Feeding well. Denies chest pain, shortness of breath, calf pain/swelling, fevers, chills, lightheadedness. Objective Data Objective Data Vital Signs: Vital Signs Temp Pulse Resp BP Pulse Ox 97.3 F L 80 18 115/72 100 03/15/21 04:58 03/15/21 04:58 03/15/21 04:57 03/15/21 04:58 03/14/21 17:01 Oxygen Delivery Method Room Air Weight: 180 lb 15.992 oz Body Mass Index (BMI) 33.0 Intake & Output: Intake and Output for Last 24 Hours 03/13/21 03/14/21 03/15/21 23:59 23:59 23:59 Intake Total 4328.67 / 4328.67 Output Total 1999 Balance 2328.67 / 2328.67 Lab / Micro Data Result Diagrams: 03/14/21 00:46 Micro: Microbiology 03/14/21 15:00 Stool C. difficile DNA Amplification - Final 03/14/21 09:30 Stool Enteric Bacteriology - Final 03/14/21 00:05 Nasal Secretion SARS-CoV-2 Antigen (Rapid) - Final ROS Constitutional Constitutional: Denies chills, fatigue, fever(s), poor appetite or weakness Eyes Eyes: Denies blurry vision, change in vision, seeing flashes or spots in vision ENT HEENT: Denies dizziness, headache(s), loss taste/smell or sore throat Cardiovascular Cardiovascular: Denies chest pain, dizziness, dyspnea, irregular heart rhythm, palpitations or rapid heart rate Respiratory/Chest Respiratory/Chest: Denies chest tightness, cough, dyspnea or breast pain Gastrointestinal Gastrointestinal: Denies abdominal pain, constipation or vomiting Genitourinary Genitourinary: Denies dysuria or flank pain Musculoskeletal Musculoskeletal: Denies difficulty walking, joint pain, limited range of motion or numbness Neurologic Neurologic: Denies abnormal movements, abnormal speech, dizziness, numbness, seizure-like activity or syncope Psychiatric Psychiatric: Denies anxiety, behavioral changes, change in appetite, confusion, depression or suicidal thoughts Physical Exam Const alert, oriented x3 and no apparent distress General Appearance: cooperative and comfortable Resp normal respiratory effort Cardio regular rate GI normal to inspection, nondistended, normoactive bowel sounds GI Narrative: uterus is firm below umbilicus Palpation: soft Bimanual Exam - Adnexa, Other: Negative for cul-de-sac fullness Back/Spine no CVA tenderness and thoraco-lumbar ROM normal Extremity normal to inspection, no clubbing, cyanosis or edema, no calf tenderness and no pedal edema Psych mental status grossly normal, thought process normal, cooperative, affect normal, speech normal, activity/motor behavior normal, denies homicidal ideation and denies suicidal ideation Assessment & Plan (1) SROM (spontaneous rupture of membranes): COMMENT: admit, pitocin PRN, epi PRN. gbs neg (2) : QUALIFIERS: Weeks of gestation: 38 weeks Qualified Code(s): Z 3A.38 - 38 weeks gestation of COMMENT: genetic, carrier, and ntd screening declined. nl anatomy; GBS NEG (3) Supervision of high risk , antepartum: COMMENT: PRR TORO 03/19/21 GIRL Tisha PC:William(13 wk loss) Anna. Spouse Clark (4) History of pre-eclampsia: COMMENT: baseline nl preeclampsia labs and baby asa at 14 weeks PLAN: s/p PPD # 1 1. routine post delivery care 2. breast feeding- support given 3. rh positive 4. rubella immune 5. DC today when peds releases the baby.
[2021-03-15] MEDS: Acetaminophen 500 MG Tablet 1000 MG PO (08:27)
[2021-03-15 09:11] VITALS: BP 120/58; PULSE 106; PULSE 109; O2SAT 97
[2021-03-15 09:12] VITALS: BP 108/50; PULSE 108; RESP 16; TEMP 36.7; O2SAT 98
[2021-03-15] MEDS: Ibuprofen 600 MG Tablet PO (11:55)
--- NOTE | 2021-03-15 13:01 | CM.ED ---
SW Note Referral Source: MD Referral Reason: History of PPD/Anxiety SW spoke to Enmanuel FLAHERTY. She reports that patient reports becoming anxious after the of her older daughter. RN said that she did not believe patient took any medication. Fatoumata reports no concerns or issues with patient. Mom: Guillermina 13 week loss PNC: Dr. 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 Anna is with patient's grandmother Housing: Reside in house in [facility] Transportation: Patient reports she has access to car and can drive a car Supplies: Patient reports that she has a crib, bassinet and carseat for the . Education Level: High school graduate. 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 No other legal, WIC, CSB or counseling services. FOB: Clark Time Together: Dating since 2009 and 3 years. 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 FOB signed up for unemployment yesterday FOB is father to patient's daughter, Anna. FOB reports no MH/AOD/DV issues Mental Health: Patient said that she lost a child at 13 weeks and after that she was put on medication, low dose of Paxil, as that was a difficult time. Patient said that after she had Anna she had alot of anxiety related to if nb was eating well and had concerns about SIDS. Patient said that she spoke to her MD who prescribed her medication but she only took it one time. Patient said that she feels that anxiety was related to her anxiety over her first child. Patient said that she feels great now and smiled throughout the assessment. Patient said that she wants to get home soon as she has never been away from her child this long. SW educated on PPD and patient said that she would contact the MD if she had symptoms of PPD and it interfered with her life. Patient voiced that she feels very comfortable speaking to her MD. Pt's PHQ-2 score was 0 per charting Patient denied smoking. Patient denied AOD use while . Patient reports social drinking when not . SW provided patient with handout on support for Post Depression and local counseling resources. No other issues or concerns voiced. JOHN updated RN that patient is clear for discharge Plan: Home Aditi GARBER
== END 2021-03-15 12:25 | disposition home or self-care (01) | DRG 560 ==
LOC: WPOUT 23:20 → WP 23:20
PROVIDERS: Admitting Provider Obstetrics & Gynecology; PCP Family Medicine; Visit Provider Obstetrics & Gynecology
DX: O70.0 First degree perineal laceration during delivery (principal); Z37.0 Single live birth; Z3A.39 39 weeks gestation of pregnancy; O47.9 False labor, unspecified
CPT/HCPCS: 59025; 59050; 84112; 85025; 86850; 86900; 86901; 87426; 87493; 87506; 99218; J7030; J7120; G0378

== ENCOUNTER → 2021-08-10 | Outpatient (CLI) | payer MEDICAID, SELFPAY ==
[2021-08-10 10:35] LABS: Absolute Lymphocyte Count 2.14 X10^3/uL (0.83-4.51); Absolute Neutrophil Count 3.4 X10^3/uL (2.0-7.7); Basophil# 0.03 X10^3/uL; Basophil% 0.5 % (0-1); Eosinophil# 0.06 X10^3/uL; Hematocrit 41.1 % (37-47); Hemoglobin 13.6 g/dL (12.0-15.0); Lymphocyte # 2.14 X10^3/ul (0.83-4.51); Lymphocyte % 34.5 % (19-41); Mean Corp Hgb Conc 33.1 g/dL (32-36); Mean Corpuscular Hgb 30.2 pg (27.0-32.0); Mean Corpuscular Volume 91.1 fL (81-99); Mean Platelet Vol. 11.5 fl (6.2-12.0); Monocyte# 0.59 X10^3/uL; Monocyte% 9.5 % (0-10); NRBC Flagged by Analyzer 0 % (0-5); Neutrophil # 3.36 X10^3/uL (2.7-7.7); Platelet Count 268 K/mm3 (150-450); RBC Distribution Width CV 11.7 % (11.6-14.6); RBC Distribution Width SD 38.8 fl (35.1-43.9); Red Blood Count 4.51 M/mm3 (4.2-5.4); White Blood Count 6.2 K/mm3 (4.4-11.0)
[2021-08-10 11:21] LABS: ALB/GLOB Ratio 1.2 RATIO (0.9-2.4); AST(SGOT) 8 U/L (15-37); Alanine Aminotransfer ALT/SGPT 23 U/L (13-56); Albumin, Serum 3.8 g/dL (3.2-5.0); Alkaline Phosphatase 105 U/L (45-117); Anion Gap 6 (5-15); BUN 16 mg/dL (7-18); BUN/Creat Ratio 23.1 RATIO (10-20); Calcium,Total 9.1 mg/dL (8.5-10.1); Chloride 109 mmol/L (98-107); Creatinine, Serum 0.69 mg/dL (0.55-1.02); EST Glomerular Filtration Rate 106 mL/min (>60); Est Glom Filt Rate - Afr Amer 128 mL/min (>60); Globulin 3.2 g/dL (2.2-4.2); Glucose 86 mg/dL (74-106); Potassium 3.8 mmol/L (3.5-5.1); Sodium Level 139 mmol/L (136-145); T4 Free Direct 0.84 ng/dL (0.76-1.46); Thyroid Stim Hormone (TSH) 2.39 uIU/mL (0.358-3.74)
[2021-08-14 16:24] LABS: Thyroid Stim Immunoglob <0.10 IU/L (0.00-0.55)
[2021-08-15 09:07] LABS: Anti-Thyroglobulin AB < 1.0 IU/mL (0.0-0.9); Thyroglobulin, Serum Qt. 6.1 ng/mL (1.5-38.5); Thyroid Peroxidase AB < 8 IU/mL (0-34)
== END | disposition home or self-care (01) ==
PROVIDERS: PCP Family Medicine; Referring Provider Family Medicine; Visit Provider Family Medicine
DX: E01.0 Iodine-deficiency related diffuse (endemic) goiter (principal)
CPT/HCPCS: 36415; 80053; 84432; 84439; 84443; 84445; 85025; 86376; 86800

== ENCOUNTER → 2021-08-21 | Outpatient (CLI) | payer MEDICAID, SELFPAY ==
--- NOTE | 2021-08-21 14:04 | US_ITS ---
STUDY: THYROID ULTRASOUND REASON FOR EXAM: Female, 31 years old. Enlarged thyroid on clinical exam. TECHNIQUE: Ultrasound evaluation of the thyroid was performed with real-time and static hurst-scale imaging. COMPARISON: None. FINDINGS: RIGHT LOBE: The right lobe of the thyroid gland measures 4.8 x 2.1 x 1.6 cm. There is a homogeneous echotexture. There are no demonstrated solid, cystic or complex lesions. LEFT LOBE: The left lobe of the thyroid gland measures 4.6 x 1.9 x 1.2 cm. There is a homogeneous echotexture. There are no demonstrated solid, cystic or complex lesions. ISTHMUS: The isthmus measures 4 mm which is normal. The regional lymph nodes are normal. US/Thyroid IMPRESSION: Mild thyromegaly with enlargement of both lobes. No nodules identified. Electronically Signed: Vidal Villagomez MD at 5:45 EDT Reading Location ID and State: [id number] / , Service support ,
== END | disposition home or self-care (01) ==
LOC: US 14:00
PROVIDERS: PCP Family Medicine; Referring Provider Family Medicine; Visit Provider Family Medicine
DX: E01.0 Iodine-deficiency related diffuse (endemic) goiter (principal)
CPT/HCPCS: 76536

== ENCOUNTER → 2022-10-03 | Outpatient (CLI) | payer MEDICAID, SELFPAY ==
[2022-10-03 17:40] LABS: Absolute Lymphocyte Count 1.98 X10^3/uL (0.83-4.51); Absolute Neutrophil Count 7.4 X10^3/uL (2.0-7.7); Basophil# 0.05 X10^3/uL; Basophil% 0.5 % (0-1); Eosinophil# 0.04 X10^3/uL; Eosinophils% 0.4 % (0-5); Hematocrit 43.3 % (37-47); Hemoglobin 14.1 g/dL (12.0-15.0); Lymphocyte # 1.98 X10^3/ul (0.83-4.51); Lymphocyte % 19.4 % (19-41); Mean Corp Hgb Conc 32.6 g/dL (32-36); Mean Corpuscular Hgb 29.4 pg (27.0-32.0); Mean Corpuscular Volume 90.2 fL (81-99); Mean Platelet Vol. 11.5 fl (6.2-12.0); Monocyte# 0.72 X10^3/uL; NRBC Flagged by Analyzer 0 % (0-5); Neutrophil # 7.39 X10^3/uL (2.7-7.7); Neutrophil % 72.3 % (47-70); Platelet Count 325 K/mm3 (150-450); RBC Distribution Width CV 12.3 % (11.6-14.6); RBC Distribution Width SD 40.6 fl (35.1-43.9); White Blood Count 10.2 K/mm3 (4.4-11.0)
[2022-10-03 18:16] LABS: ALB/GLOB Ratio 1.1 RATIO (0.9-2.4); AST(SGOT) 15 U/L (15-37); Alanine Aminotransfer ALT/SGPT 24 U/L (13-56); Albumin, Serum 3.9 g/dL (3.2-5.0); Alkaline Phosphatase 126 U/L (45-117); Anion Gap 6 (5-15); BUN 13 mg/dL (7-18); BUN/Creat Ratio 16.1 RATIO (10-20); Calcium,Total 9.1 mg/dL (8.5-10.1); Chloride 109 mmol/L (98-107); Creatinine, Serum 0.81 mg/dL (0.55-1.02); EST Glomerular Filtration Rate 88 mL/min (>60); Est Glom Filt Rate - Afr Amer 106 mL/min (>60); Globulin 3.5 g/dL (2.2-4.2); Glucose 93 mg/dL (74-106); Potassium 4.1 mmol/L (3.5-5.1); Protein, Total 7.4 g/dL (6.4-8.2); Sodium Level 139 mmol/L (136-145); Thyroid Stim Hormone (TSH) 1.66 uIU/mL (0.358-3.74)
[2022-10-03 18:41] LABS: Hemoglobin A1c 5.4 % (3.8-5.6)
== END | disposition home or self-care (01) ==
LOC: MFPLAB 14:52
PROVIDERS: PCP Family Medicine; Visit Provider Family Medicine
DX: R42 Dizziness and giddiness (principal)
CPT/HCPCS: 36415; 80053; 83036; 84443; 85025

== ENCOUNTER 2022-10-08 13:16 | Emergency (ER) | payer MEDICAID, SELFPAY ==
[2022-10-08 13:17] VITALS: BP 117/87; PULSE 80; RESP 14; TEMP 36.6; O2SAT 97; BMI 31.1
--- NOTE | 2022-10-08 13:36 | CT_ITS ---
STUDY: CT Abdomen And Pelvis W/ Contrast Injection 10/08/2022 2:52 PM REASON FOR EXAM: Female, 32 years old. ABDOMINAL PAIN LUQ abdominal pain TECHNIQUE: Transaxial images were obtained without oral contrast, and with IV 100mL Isovue-300 intravenous contrast. Individualized dose optimization techniques were used for this CT. COMPARISON: None. FINDINGS: The visualized lung bases are unremarkable. The visualized portions of the heart are within normal limits. Unremarkable liver. Unremarkable gallbladder and extrahepatic biliary system. Unremarkable spleen. Unremarkable pancreas. Unremarkable bilateral adrenal glands. No acute findings of the right kidney. No acute findings of the left kidney. Unremarkable visualized stomach. Unremarkable small intestine. Unremarkable colon. The appendix is visualized and appears unremarkable. There are no acute findings of the abdominal aorta. Unremarkable inferior vena cava. Subcentimeter mesenteric lymph nodes. Unremarkable urinary bladder. Normal visualized uterus. There is a linear heterogeneous density in the vagina. This a tampon. There is an umbilical hernia containing fat. Unremarkable osseous structures. CT/Abdomen/Pelvis W IV Cont ONLY IMPRESSION: (NOT LISTED IN ORDER OF SIGNIFICANCE) There are no acute findings. Other findings as above. Electronically Signed: Mansoor Hernandez MD at 14:56 EDT ,
--- NOTE | 2022-10-08 13:38 | EDS_ITS ---
HPI HPI - GI History of Present Illness Chief Complaint: Abd Pain Narrative Narrative: 32-year-old female who denies significant past medical history presents with epigastric to left upper quadrant pain with nausea that she has had since , approximately 6 days ago. She relates history she was not feeling well last week, felt lightheaded and mildly nauseated. She went to see her primary care provider and saw another physician in the office. They were concerned about her allergy type symptoms stating that she has fluid behind her ear and nasal inflammation. She had mentioned the epigastric pain and nausea so she states that they chapito blood work but she has not heard back. Since then, she states that her pain is getting worse and is moving to the left side. She had diarrhea, but denies any fevers or chills. No dysuria or hematuria. No vom iting. She does not have any previous intra-abdominal surgeries. She has also been noting since that she has early satiety and feels full much quicker. She has only been eating a small amount secondary to her epigastric to left upper quadrant discomfort. [facility] Medical History Anxiety depression Pre-eclampsia Home Medications sertraline 50 mg tablet (Zoloft) 50 mg PO DAILY 30 days #30 tabs 04/25/21 [Rx Last Taken Unknown] sertraline 25 mg tablet (Zoloft) 25 mg PO DAILY #30 tabs 11/06/21 [Rx Last Taken Unknown] omeprazole 20 mg capsule,delayed release 20 mg PO DAILY #30 CAPSULES 10/08/22 [ Rx Last Taken Unknown] Allergy/AdvReac Type Severity Reaction Status Date / Time No Known Allergies Allergy Verified 11/06/21 11:43 Family History Father Hypertension Fibromyalgia Mother Anxiety Grandmother Cancer lung Grandfather Cancer leukemia Father Hypertension Fibromyalgia Grandfather Hypertension Surgical History excision lipoma left clavicular region (~07/05/20) History of tonsillectomy Social History adopted: No household members: spouse and children number of children: 2 current occupation: [employer] Smoking Status: Never smoker alcohol intake: current details: pre substance use type: does not use caffeine: Yes what type of physical activity do you participate in: none seatbelt use: always do you feel safe at home: Yes additional social history: [place] ROS ED ROS Narrative Constitutional: No fever, no chills. HEENT: No sore throat. No neck pain. No loss of vision. No rhinorrhea. Cardiovascular: No chest pain. No palpitations. No pedal edema. Respiratory: No cough, no shortness of breath. Abdominal: Epigastric to left upper quadrant abdominal pain. Positive nausea. No vomiting. Positive diarrhea Genitourinary: No dysuria. No hematuria. Musculoskeletal: No myalgias. No arthralgias. Neurologic: No headaches. No dizziness. Mild lightheadedness. Skin: No rash. No change in color. Psychiatric: No depression. No anxiety. EXAM Physical Exam Narrative Exam Narrative: Afebrile. Vital signs noted. HEENT: Normocephalic. Atraumatic. PERRL, EOMI. Neck soft and supple. No point tenderness or step off. Cardiovascular: Regular rate and rhythm. No murmurs, rubs, or gallops appreciated. Respiratory: No tachypnea. Lungs clear to auscultation bilaterally. Gastrointestinal: Abdomen soft, mild tenderness in epigastrium to left upper quadrant with normoactive bowel sounds. No rebound or guarding. Neurological: Awake. Alert. Nonfocal, nonlateralizing. Skin: No rash. Normal color. No pallor. Musculoskeletal: No pedal edema. Full range of motion extremities. Const Vital Signs: 10/08/22 13:17 Temperature 97.8 F Temperature Source Temporal Pulse Rate 80 Respiratory Rate 14 Blood Pressure 117/87 H Blood Pressure Mean 97 Pulse Ox 97 Oxygen Delivery Method Room Air MDM MDM MDM Narrative Medical decision making narrative: In the differential diagnosis is diverticulitis, pancreatitis, gastric ulcers and dyspepsia. I have lower concern for splenic rupture or bowel obstruction as clinically she is not showing signs of vomiting and she is still having stool. I reviewed her prior records. Comprehensive work-up was pursued. I reviewed her laboratory work, she has a slightly elevated white count of 11.9 which I think is nonspecific, normal hemoglobin of 14.6, platelet count normal at 309. CMP was obtained and she has glucose elevated at 107 but a normal anion gap of 5, LFTs show AST low at 10 with ALT normal at 18 and alk phos also slightly elevated at 130. She has a normal lipase at 26 and I have low suspicion for pancreatitis. Urinalysis was o btained and shows no evidence of infection or ketones. CT of the abdomen shows no acute process. She had been given morphine and ondansetron for pain and nausea. She states she feels slightly improved upon reexamination at approximately 1515. At this point in time, she may have more of a gastritis or peptic ulcer disease. I wrote her a prescription for omeprazole and referred her to gastroenterology. She can also follow-up with her primary care physician in the meantime. I feel she can be discharged safely home and does not require observation or admission. Return instructions reviewed. Disposition is discharged home in stable condition. History & Record Review Discussion w/independent historian: Patient Additional record(s) reviewed:: Prior ED visit Lab Data Attestation: I reviewed the patient's lab results. Labs: Laboratory Results - last 24 hr 10/08/22 14:00 WBC 11.9 H RBC 4.83 Hgb 14.6 Hct 42.8 MCV 88.6 MCH 30.2 MCHC 34.1 RDW Std Deviation 39.8 RDW Coeff of Jacobo 12.2 Plt Count 309 MPV 10.9 Immature Gran % (Auto) 0.300 Neut % (Auto) 69.0 Lymph % (Auto) 21.5 Twiggs % (Auto) 8.1 Eos % (Auto) 0.6 Baso % (Auto) 0.5 Absolute Neuts (auto) 8.2 H Absolute Lymphs (auto) 2.57 Nucleated RBC % 0 Sodium 141 Potassium 4.1 Chloride 110 H Carbon Dioxide 26.0 Anion Gap 5 BUN 11 Creatinine 0.74 Estim Creat Clear Calc 87.12 Est GFR (MDRD) Af Amer 117 Est GFR (MDRD) Non-Af 97 BUN/Creatinine Ratio 14.8 Glucose 107 H Calcium 9.0 Total Bilirubin 0.30 AST 10 L ALT 18 Alkaline Phosphatase 130 H Total Protein 7.3 Albumin 3.9 Globulin 3.4 Albumin/Globulin Ratio 1.1 Lipase 26 Serum , Qual NEGATIVE Urine Color Yellow Urine Clarity Clear Urine pH 6.5 Ur Specific Devens 1.010 Urine Protein Negative Urine Glucose (UA) Normal Urine Ketones Negative Urine Occult Blood Negative Urine Nitrite Negative Urine Bilirubin Negative Urine Urobilinogen Normal Ur Leukocyte Esterase Negative Urine RBC 0 SEEN Urine WBC 0 SEEN Ur Squamous Epith Cells 0 SEEN Urine Bacteria 0 SEEN Urine Mucus 0 SEEN Radiography Diagnostic Testing: Clinical Impression(s) from Imaging Studies Abdomen/Pelvis CT 10/08/22 13:36 IMPRESSION: (NOT LISTED IN ORDER OF SIGNIFICANCE) There are no acute findings. Other findings as above. Electronically Signed: Mansoor Hernandez MD at 14:56 EDT Reading Location ID and State: [facility] / MD , Service support , Discharge Plan Triage Chief Complaint: Abd Pain ED Provider: Alejandro Ochoa Dx/Rx/DC Orders Clinical Impression: Early satiety, Abdominal pain Instructions: ED Abdominal Pain Unkn Cause Fem Prescriptions: New omeprazole 20 mg capsule,delayed release(DR/EC) 20 mg PO DAILY Qty: 30 0RF No Action sertraline [Zoloft] 50 mg tablet 50 mg PO DAILY 30 Days Qty: 30 12RF sertraline [Zoloft] 25 mg tablet 25 mg PO DAILY Qty: 30 12RF Primary Care Provider: Graeme Mendoza Referrals: Alyse Cintron DO [Med Staff - Trolley Car Operator] - 3-5 Days Storm Bonilla DO [Med Staff - Active Staff] - As soon as possible Disposition Disposition: Home, Self Care
[2022-10-08] MEDS: Ondansetron 4 MG/2 ML Vial IV (13:56)
[2022-10-08] MEDS: 0.9% Normal Saline 1,000 ML 1000 ML IV (13:57)
[2022-10-08 14:07] LABS: Bacteria 0 SEEN /hpf (None Seen); Mucous, Urine 0 SEEN /hpf (<or=2+); Red Blood Cells-Urine 0 SEEN /hpf (0-5); Squamous Epithelial Cells - UA 0 SEEN /hpf (5-10); White Blood Cells 0 SEEN /hpf (0-5)
[2022-10-08 14:11] LABS: Color, Urine Yellow (Yellow); Glucose, Dipstick Normal (Normal); Ketone-Dipstick Negative (Negative); Leukocyte Esterase-Dipstick Negative /ul (Negative); Nitrite-Dipstick Negative (Negative); Occult Blood-Urine Negative /ul (Negative); Protein-Dipstick Negative (Negative); Urine Bilirubin Dipstick Negative (Negative); Urine Clarity Clear (Clear); Urine Urobilinogen Normal (Normal); Urine pH 6.5 (5.0 - 8.0)
[2022-10-08 14:13] LABS: Absolute Lymphocyte Count 2.57 X10^3/uL (0.83-4.51); Absolute Neutrophil Count 8.2 X10^3/uL (2.0-7.7); Basophil# 0.06 X10^3/uL; Basophil% 0.5 % (0-1); Eosinophil# 0.07 X10^3/uL; Eosinophils% 0.6 % (0-5); Hematocrit 42.8 % (37-47); Hemoglobin 14.6 g/dL (12.0-15.0); Lymphocyte # 2.57 X10^3/ul (0.83-4.51); Lymphocyte % 21.5 % (19-41); Mean Corp Hgb Conc 34.1 g/dL (32-36); Mean Corpuscular Hgb 30.2 pg (27.0-32.0); Mean Corpuscular Volume 88.6 fL (81-99); Mean Platelet Vol. 10.9 fl (6.2-12.0); Monocyte# 0.97 X10^3/uL; Monocyte% 8.1 % (0-10); NRBC Flagged by Analyzer 0 % (0-5); Neutrophil # 8.22 X10^3/uL (2.7-7.7); Platelet Count 309 K/mm3 (150-450); RBC Distribution Width CV 12.2 % (11.6-14.6); RBC Distribution Width SD 39.8 fl (35.1-43.9); Red Blood Count 4.83 M/mm3 (4.2-5.4); White Blood Count 11.9 K/mm3 (4.4-11.0)
[2022-10-08 14:20] LABS: Internal QC Validated? YES +Cl - CLEAR BKGD; Pregnancy, Serum, hCG Quali. NEGATIVE Negative
[2022-10-08 14:25] LABS: ALB/GLOB Ratio 1.1 RATIO (0.9-2.4); AST(SGOT) 10 U/L (15-37); Alanine Aminotransfer ALT/SGPT 18 U/L (13-56); Albumin, Serum 3.9 g/dL (3.2-5.0); Alkaline Phosphatase 130 U/L (45-117); Anion Gap 5 (5-15); BUN 11 mg/dL (7-18); BUN/Creat Ratio 14.8 RATIO (10-20); Chloride 110 mmol/L (98-107); Creatinine, Serum 0.74 mg/dL (0.55-1.02); EST Glomerular Filtration Rate 97 mL/min (>60); Est Glom Filt Rate - Afr Amer 117 mL/min (>60); Estimated Creatinine Clearance 87.12 ml/min; Globulin 3.4 g/dL (2.2-4.2); Glucose 107 mg/dL (74-106); Lipase 26 U/L (13-75); Potassium 4.1 mmol/L (3.5-5.1); Protein, Total 7.3 g/dL (6.4-8.2); Sodium Level 141 mmol/L (136-145)
[2022-10-08] MEDS: Morphine 4 MG/ML Syringe IV (14:49)
[2022-10-08 15:16] VITALS: RESP 18
== END 2022-10-08 16:19 | disposition home or self-care (01) ==
PROVIDERS: Emergency Provider Emergency Medicine; PCP Family Medicine; Visit Provider Emergency Medicine
DX: R68.81 Early satiety (principal); R10.13 Epigastric pain
CPT/HCPCS: 99281; 74177; 80053; 81001; 83690; 84703; 85025; 96361; 96374; 96375; 99282; Q9967; J2405

== ENCOUNTER → 2023-02-21 | Outpatient (CLI) | payer MEDICAID, SELFPAY ==
[2023-02-21 15:55] LABS: hCG Titer Quant., Serum 42 mIU/mL (1-3)
== END | disposition home or self-care (01) ==
LOC: MFPLAB 12:14
PROVIDERS: PCP Family Medicine; Visit Provider Obstetrics & Gynecology
DX: N91.2 Amenorrhea, unspecified (principal)
CPT/HCPCS: 36415; 84702

== ENCOUNTER → 2023-02-23 | Outpatient (CLI) | payer MEDICAID, SELFPAY ==
[2023-02-23 13:14] LABS: hCG Titer Quant., Serum 104 mIU/mL (1-3)
== END | disposition home or self-care (01) ==
LOC: LAB 12:21
PROVIDERS: PCP Family Medicine; Visit Provider Obstetrics & Gynecology
DX: N91.2 Amenorrhea, unspecified (principal)
CPT/HCPCS: 84702

== ENCOUNTER → 2023-03-19 | Outpatient (CLI) | payer MEDICAID, SELFPAY ==
[2023-03-19 17:35] LABS: Absolute Lymphocyte Count 2.35 X10^3/uL (0.83-4.51); Absolute Neutrophil Count 5.2 X10^3/uL (2.0-7.7); Basophil# 0.04 X10^3/uL; Basophil% 0.5 % (0-1); Eosinophil# 0.09 X10^3/uL; Eosinophils% 1.1 % (0-5); Hematocrit 40.9 % (37-47); Hemoglobin 13.6 g/dL (12.0-15.0); Lymphocyte # 2.35 X10^3/ul (0.83-4.51); Lymphocyte % 28.1 % (19-41); Mean Corp Hgb Conc 33.3 g/dL (32-36); Mean Corpuscular Hgb 29.5 pg (27.0-32.0); Mean Corpuscular Volume 88.7 fL (81-99); Mean Platelet Vol. 11.5 fl (6.2-12.0); Monocyte# 0.61 X10^3/uL; Monocyte% 7.3 % (0-10); NRBC Flagged by Analyzer 0 % (0-5); Neutrophil # 5.24 X10^3/uL (2.7-7.7); Neutrophil % 62.6 % (47-70); Platelet Count 297 K/mm3 (150-450); RBC Distribution Width CV 12.4 % (11.6-14.6); RBC Distribution Width SD 40.1 fl (35.1-43.9); Red Blood Count 4.61 M/mm3 (4.2-5.4); White Blood Count 8.4 K/mm3 (4.4-11.0)
[2023-03-19 18:45] LABS: HIV - WCH Non-Reactive (Nonreactive); Hepatitis B Surface Antigen Non-Reactive (Nonreactive); Hepatitis C Antibody Non-Reactive (Nonreactive); Rubella IgG Reactive (Nonreactive); Syphilis Antibodies Non-reactive
== END | disposition home or self-care (01) ==
LOC: MFPLAB 15:05
PROVIDERS: Registered Nurse; PCP Family Medicine; Visit Provider Family Medicine
DX: Z34.90 Encounter for supervision of normal pregnancy, unspecified, unspecified trimester (principal)
CPT/HCPCS: 36415; 85025; 86703; 86762; 86780; 86803; 86850; 86900; 86901; 87340

== ENCOUNTER → 2023-03-21 | Outpatient (CLI) | payer MEDICAID, SELFPAY ==
[2023-03-21 18:19] LABS: Protein, Urine (Random) < 6.0 mg/dL (<11.9)
[2023-03-25 20:07] LABS: Chlamydia By Nucleic Acid AMP Negative (Negative); Gonococcus By Nucleic Acid AMP Negative (Negative)
== END | disposition home or self-care (01) ==
PROVIDERS: PCP Family Medicine; Referring Provider Registered Nurse; Visit Provider Registered Nurse
DX: Z34.90 Encounter for supervision of normal pregnancy, unspecified, unspecified trimester (principal)
CPT/HCPCS: 82570; 84156; 87086; 87491; 87591

== ENCOUNTER → 2023-05-27 | Outpatient (CLI) | payer MEDICAID, SELFPAY ==
[2023-05-27 13:08] LABS: ALB/GLOB Ratio 0.9 RATIO (0.9-2.4); AST(SGOT) 10 U/L (15-37); Alanine Aminotransfer ALT/SGPT 18 U/L (13-56); Albumin, Serum 3.1 g/dL (3.2-5.0); Alkaline Phosphatase 69 U/L (45-117); Anion Gap 9 (5-15); BUN 7 mg/dL (7-18); BUN/Creat Ratio 13.5 RATIO (10-20); Chloride 107 mmol/L (98-107); Creatinine, Serum 0.52 mg/dL (0.55-1.02); EST Glomerular Filtration Rate 146 mL/min (>60); Est Glom Filt Rate - Afr Amer 177 mL/min (>60); Globulin 3.6 g/dL (2.2-4.2); Glucose 87 mg/dL (74-106); Potassium 3.8 mmol/L (3.5-5.1); Protein, Total 6.7 g/dL (6.4-8.2); Sodium Level 139 mmol/L (136-145)
[2023-05-27 14:44] LABS: Hemoglobin A1c 5.1 % (3.8-5.6)
== END | disposition home or self-care (01) ==
LOC: MFPLAB 10:23
PROVIDERS: Registered Nurse; PCP Family Medicine; Visit Provider Family Medicine
DX: O09.299 Supervision of pregnancy with other poor reproductive or obstetric history, unspecified trimester (principal); Z3A.00 Weeks of gestation of pregnancy not specified
CPT/HCPCS: 36415; 80053; 83036

== ENCOUNTER → 2023-08-07 | Outpatient (CLI) | payer MEDICAID, SELFPAY ==
[2023-08-07 11:15] LABS: Absolute Lymphocyte Count 1.55 X10^3/uL (0.83-4.51); Absolute Neutrophil Count 6.5 X10^3/uL (2.0-7.7); Basophil# 0.02 X10^3/uL; Basophil% 0.2 % (0-1); Eosinophil# 0.05 X10^3/uL; Eosinophils% 0.6 % (0-5); Hematocrit 35.3 % (37-47); Hemoglobin 11.8 g/dL (12.0-15.0); Lymphocyte # 1.55 X10^3/ul (0.83-4.51); Lymphocyte % 17.9 % (19-41); Mean Corp Hgb Conc 33.4 g/dL (32-36); Mean Corpuscular Hgb 30.2 pg (27.0-32.0); Mean Corpuscular Volume 90.3 fL (81-99); Monocyte# 0.53 X10^3/uL; Monocyte% 6.1 % (0-10); NRBC Flagged by Analyzer 0 % (0-5); Neutrophil # 6.48 X10^3/uL (2.7-7.7); Neutrophil % 74.7 % (47-70); Platelet Count 192 K/mm3 (150-450); RBC Distribution Width CV 13.2 % (11.6-14.6); RBC Distribution Width SD 43.4 fl (35.1-43.9); Red Blood Count 3.91 M/mm3 (4.2-5.4); White Blood Count 8.7 K/mm3 (4.4-11.0)
[2023-08-07 11:38] LABS: Glucose Challenge Gest 1H 50g 140 mg/dL (70-140)
[2023-08-07 19:42] LABS: HIV - WCH Non-Reactive (Nonreactive); Syphilis Antibodies Non-reactive
== END | disposition home or self-care (01) ==
LOC: LAB 10:22
PROVIDERS: PCP Family Medicine; Visit Provider Obstetrics & Gynecology
DX: O09.90 Supervision of high risk pregnancy, unspecified, unspecified trimester (principal); Z3A.00 Weeks of gestation of pregnancy not specified
CPT/HCPCS: 36415; 82950; 85025; 86703; 86780

== ENCOUNTER → 2023-08-25 | Outpatient (CLI) | payer MEDICAID, SELFPAY ==
[2023-08-25 08:19] LABS: Glucose GTT- Fasting 85 mg/dL (74-106)
[2023-08-25 08:31] LABS: Bedside Glucose 81 mg/dL (74-106)
[2023-08-25 09:01] LABS: Glucose GTT- 1 Hour 154 mg/dL (120-170)
[2023-08-25 09:01] LABS: Glucose GTT-30 minutes 147 mg/dL (110-170)
[2023-08-25 12:29] LABS: Glucose GTT- 3 Hour 104 mg/dL (74-106)
[2023-08-25 12:44] LABS: Glucose GTT- 2 Hour 155 mg/dL (70-120)
== END | disposition home or self-care (01) ==
PROVIDERS: PCP Family Medicine; Referring Provider Advanced Practice Midwife; Visit Provider Advanced Practice Midwife
DX: O99.810 Abnormal glucose complicating pregnancy (principal); Z3A.00 Weeks of gestation of pregnancy not specified
CPT/HCPCS: 36415; 82951; 82952; 82962

== ENCOUNTER → 2023-10-06 | Outpatient (CLI) | payer SELFPAY | END | disposition home or self-care (01) | LOC: LABSPEC 12:14 | PROVIDERS: PCP Family Medicine; Referring Provider Obstetrics & Gynecology; Visit Provider Obstetrics & Gynecology | DX: O09.92 Supervision of high risk pregnancy, unspecified, second trimester (principal); Z3A.00 Weeks of gestation of pregnancy not specified | CPT/HCPCS: 87081 ==

== ENCOUNTER 2023-10-12 08:00 | Outpatient (CLI) | payer SELFPAY ==
[2023-10-12 08:26] VITALS: BP 119/74; PULSE 91; RESP 16; TEMP 36.4
[2023-10-12 08:33] VITALS: BMI 33.3
[2023-10-12] MEDS: Lactated Ringers 1,000 ML 125 ML IV (08:52)
--- NOTE | 2023-10-12 09:18 | OB.TRI.HP_ITS ---
HPI - General HPI Narrative MICHAELA LOBATO, is a 33 F who presents to L&D at 37 weeks for an external cephalic version . Maternal Data Information TORO Calculator Estimated Delivery Date Method Current WG Current Estimate 11/01/23 LMP (Certain) 37w 1d PFSH PFSH Medical History Seasonal allergies Positive self-administered antigen test for COVID-19 depression Pre-eclampsia Anxiety Home Medications ?Medication ?Instructions ?Recorded ?Last Taken ?Type multivitamin no.47-iron fum 27 cap PO 03/07/23 10/11/23 History mg-folate no.1 1 mg-dha 300 mg capsule (PNV-DHA) aspirin 81 mg capsule 81 mg PO DAILY 10/12/23 10/11/23 History Allergy/AdvReac Type Severity Reaction Status Date / Time No Known Allergies Allergy Verified 10/12/23 08:35 Family History Father Hypertension Fibromyalgia Mother Anxiety Grandmother Cancer lung Breast cancer, Onset Age: 70 paternal Grandfather Cancer leukemia Father Hypertension Fibromyalgia Grandfather Hypertension Surgical History excision lipoma left clavicular region (~07/05/20) History of tonsillectomy Social History adopted: No household members: spouse and children number of children: 2 current occupational status: employed 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 current occupational exposures/hazards: No pets and animals: Yes (Not managing litterbox) pets and animals: cat(s) and dog(s) history of recent travel: No sexually active: Yes Smoking Status: Never smoker alcohol intake: current details: pre substance use type: does not use well-balanced diet: about half the time caffeine: Yes Type: coffee Number of servings: 1 eating out: 1-3 times/week during the past year weight has: remained stable what type of physical activity do you participate in: none angelina/zoroastrian: Mandaeism seatbelt use: always do you feel safe at home: Yes additional social history: [employer] [place] History 4 Elective abortions Hx Para 2 Spontaneous abortions 1 Hx # Term Pregnancies Ectopic pregnancies Hx # Pregnancies Multiple births # of living children 2 Past Pregnancies Del. Date Name GA/Weeks Outcome Route Bth Weight Infant Gen Labor Lgth Anesthesia Del Locatn Provider FOB 11/07/17 William 13 spontaneous Male pr ovider office [facility] 11/25/18 Anna Álvarez 37 live - full term 6lbs 1oz Female 16 hour epidural [facility] 03/14/21 Tisha 39 live - full term 7lbs 3oz Female ep idural [facility] Vandkv[facility] Lord Delivery Date: 11/25/18 Last Updated by: Millie James OYSTER OPENER, OYSTER OPENER-C Cord around neck x2-tight; nuchal cord compression; GHTN:IOL 37 wk. Enlarged kidney Visit Details Expected Delivery Route/Plan Labor Preferences- CB/BF classes: [] labor support person: [] labor intervention preferences: [] pain management options preferred: [] cut cord/dad catch: [] : [] PP control planned: [] discussed possible routes of delivery and associated risks: [] special requests: [] Plans Covid status: [] Flu vaccine: denies Tdap vaccine: given Rhogam: na LARC form signed: declines movement and labor precautions reviewed. Problem list reviewed and updated with the most current plan of care details and appropriate orders placed. Relevant counseling for the gestational age provided. Continue routine care and follow up unless otherwise noted in visit notes/problem list details OB Flowsheet Initial Weight: Not Recorded Date -?-?-?-?-?-?-?-?-?-?-?-?- EGA Weight BP Urine Prot -?-?-?-?-?-?-?-?-?-?-?-?- Glucose FHR FuHt Pres Dilation -?-?-?-?-?-?-?-?-?-?-?-?- Effaced St Visit Note 03/21/23 -?--?-?-?-?-?-?-?-?-?-?-?- 7w 6d 168 lb 2 oz 121/77 -?-?-?-?-?-?-?-?-?-?-?-?- 163 -?-?-?-?-?-?-?-?-?-?-?-?- LC- CRL con with LMP. baseline PEC lab ordered. start on baby asa. hgba1c ordered. declines nipt. LC- CRL con with LMP. baseli ne PEC lab ordered. start on baby asa. hgba1c ordered. declines nipt. declines pap today due to hx of miscarriage. 04/16/23 -?-?-?-?-?-?-?-?-?-?-?-?- 11w 4d 173 lb 138/72 Negative -?-?-?-?-?-?-?-?-?-?-?-?- Negative 165 -?-?-?-?-?-?-?-?-?-?-?-?- JV- pt had some spotting yesterday without cramping. declines pelvic exam. ultrasound shows viable 11 week 4 day iup with heart tones and movement. no signs of earlene. 05/13/23 -?-?-?-?-?-?-?-?-?-?-?-?- 15w 3d 169 lb 122/70 Negative -?-?-?-?-?-?-?-?-?-?-?-?- Negative 152 -?-?-?-?-?-?-?-?-?-?-?-?- MH-NO VB. Denies concerns. Will get CMP & HgbA1c today. MFM US scheduled 06/10/23 -?-?-?-?-?-?-?-?-?-?-?-?- 19w 3d 175 lb 2 oz 118/83 Nega tive -?-?-?-?-?-?-?-?-?-?-?-?- Negative 150 -?-?-?-?-?-?-?-?-?-?-?-?- JV- ultrasound w ith MFM shows multipcystic (unilateral) kidney and a FLOWER CUTTER. She has lots of concerns. follow up scheduled with mfm. JV- ultrasound with MFM show s multipcystic (unilateral) kidney and a FLOWER CUTTER. She has lots of concerns. follow up scheduled with mfm. NIPT recommended JV- ultrasound with MFM show s multipcystic (unilateral) kidney and a FLOWER CUTTER. She has lots of concerns. follow up scheduled with mfm. NIPT recommended by Dr. pka but when she talked to Dr. moura he does not think necessary and patient declined. 07/09/23 -?-?-?-?-?-?-?-?-?-?-?-?- 23w 4d 179 lb 6 oz 119/80 Nega tive -?-?-?-?-?-?-?-?-?-?-?-?- Negative 150 -?-?-?-?-?-?-?-?-?-?-?-?- JV- JV- growth scan reviewed wit h patient. 54th% and stable 9mm largest cyst on right kidney. 08/07/23 -?-?-?-?-?-?-?-?-?-?-?-?- 27w 5d 177 lb 116/80 Negative -?-?-?-?-?-?-?-?-?-?-?-?- Negative 150 28 -?-?-?-?-?-?-?-?-?-?-?-?- no vb lof good fm no regular ctx 09/08/23 -?-?-?-?-?-?-?-?-?-?-?-?- 32w 2d 182 lb 92/56 Negative -?-?-?-?-?-?-?-?-?-?-?-?- Negative 147 32 -?-?-?-?-?-?-?-?-?-?-?-?- JV- seeing mfm f or next visit to discuss kidney status. no complaints today. will need letter of proof of and for her to not travel after 35 weeks gestation. 09/17/23 -?-?-?-?-?-?-?-?-?-?-?-?- 33w 4d 184 lb 118/78 Negative -?-?-?-?-?-?-?-?-?-?-?-?- Negative 145 33 -?-?-?-?-?-?-?-?-?-?-?-?- SM- no vb lof go od fm no regular ctx 10/06/23 -?-?-?-?-?-?-?--?-?-?-?-?- 36w 2d 184 lb 129/82 Negative -?-?-?-?-?-?-?-?-?-?-?-?- Negative 140 34 Breech 0.5 -?-?-?-?-?-?-?-?-?-?-?-?- JV- gbs collect4 d. baby is still breech. only had 1 kidney visible on last scan. mfm recommending MRI but will cost her $4000. She is requesting a version. Will call back when scheduled ROS Constitutional Constitutional: Reports systems reviewed and no addt'l complaints, except as documented Gastrointestinal Gastrointestinal: Denies bloating, constipation, cramping, diarrhea, nausea or vomiting Genitourinary Genitourinary: Reports other Details: Denies vaginal odor, vaginal bleeding, or vaginal discharge ; Denies difficulty urinating or flank pain Physical Exam HEENT normocephalic Resp normal respiratory effort and normal air movement no CVA tenderness Narrative: bedside ultrasound shows vertex presentation and DEEPTHI of 13. 5. Extremity normal to inspection General Extremity: edema bilateral (trace ) NST FHR Rate Baby A Baseline: 140 Variability:: Moderate Accelerations:: 15 x 15 Decelerations:: None NST Reactive:: Yes FHR Category:: Category I Assessment & Plan (1) Abnormal glucose affecting : COMMENT: passed 3 hour (2) Obesity affecting : COMMENT: hbga1c. healthy weight gain in . (3) Choroid plexus cyst: COMMENT: see ultrasound. pt reassured by dr. pak (4) Multiple congenital cysts of kidney: COMMENT: scan showed right sided MCKD and is being followed by mfm. see ultrasound note. follow up scans scheduled. prognosis is excellent and usually regress after delivery. us from 07/03/23 showed growth 54%, persistent right multi-cystic dysplastic kidney. follow up in [place] arranged. (5) History of miscarriage, currently : COMMENT: 1st (William) (6) Hx of pre-eclampsia in prior , currently : COMMENT: baseline labs ordered. asa. (7) Supervision of high-risk : QUALIFIERS: Trimester: second trimester Qualified Code(s): O09.92 - Supervision of high risk , unspecified, second trimester COMMENT: [id number], TORO 11/01/23, Tisha Jenkins(William) Clark (8) : QUALIFIERS: Weeks of gestation: 36 weeks Qualified Code(s): Z3A.36 - 36 weeks gestation of COMMENT: declines AFP, genetic & carrier testing. anatomy reviewed. (9) Positive self-administered antigen test for COVID-19: COMMENT: 81 asa daily PLAN: Plan The inital plan was to perform an ECV, however the position had turned from last week's appt to today and the procedure was aborted. NST reactive and DEEPTHI reassuring. patient happy with outcome and being discharged to home. Charges/Coding Multi Select Codes Visit Charges Office Visit/Consults: 12567 OV L3 Est 20min Urinary/Genital Urinary/Genital CPT Codes: 74019-45 non-stress test Interp
== END 2023-10-12 09:25 | disposition home or self-care (01) ==
LOC: WPOUT 08:08 → WP 08:09
PROVIDERS: PCP Family Medicine; Visit Provider Obstetrics & Gynecology
DX: O32.9XX0 Maternal care for malpresentation of fetus, unspecified, not applicable or unspecified (principal); Z3A.37 37 weeks gestation of pregnancy; O99.810 Abnormal glucose complicating pregnancy; O99.213 Obesity complicating pregnancy, third trimester
CPT/HCPCS: 59025; 59050; 59412; 76815; 99221; J7120; G0378

== ENCOUNTER 2023-10-22 09:37 | Inpatient (IN) | payer MEDICAID, SELFPAY ==
[2023-10-22] VITALS (71 sets, daily range): BP systolic 94–149; BP diastolic 55–90; PULSE 73–125; RESP 15–18; TEMP 36.2–37.1; O2SAT 83–100; BMI 33.9
[2023-10-22 09:05] LABS: ROM Internal Control Test YES-OK TO RESULT pt. (Internal QC)
[2023-10-22 09:07] LABS: Record Kit Lot#, ROM+ K1866
[2023-10-22 09:18] LABS: ROM Patient Test POSITIVE (Negative)
--- NOTE | 2023-10-22 10:02 | HP.PCM.OB_ITS ---
HPI - General General Date of Admission: 10/22/23 HPI Narrative MICHAELA LOBATO, is a 33 y/o @ 38 weeks 2 days who presents to L&D with rupture of membranes. She is not feeling contractions currently. States that with her other 2 she needed pitocin to contract. Maternal Data Information TORO Calculator Estimated Delivery Date Method Current WG Current Estimate 11/01/23 LMP (Certain) 38w 4d PFSH PFSH Medical History Seasonal allergies Positive self-administered antigen test for COVID-19 depression Pre-eclampsia Anxiety Home Medications ?Medication ?Instructions ?Recorded ?Last Taken ?Type multivitamin no.47-iron fum 27 1 cap PO DAILY 03/07/23 10/21/23 History mg-folate no.1 1 mg-dha 300 mg capsule (PNV-DHA) aspirin 81 mg capsule 81 mg PO DAILY 10/12/23 10/11/23 History Allergy/AdvReac Type Severity Reaction Status Date / Time No Known Allergies Allergy Verified 10/22/23 08:48 Family History Father Hypertension Fibromyalgia Mother Anxiety Grandmother Cancer lung Breast cancer, Onset Age: 70 paternal Grandfather Cancer leukemia Father Hypertension Fibromyalgia Grandfather Hypertension Surgical History excision lipoma left clavicular region (~07/05/20) History of tonsillectomy Social History adopted: No household members: spouse and children number of children: 2 current occupational status: employed 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 current occupational exposures/hazards: No pets and animals: Yes (Not managing litterbox) pets and animals: cat(s) and dog(s) history of recent travel: No sexually active: Yes Smoking Status: Never smoker alcohol intake: current details: pre substance use type: does not use well-balanced diet: about half the time caffeine: Yes Type: coffee Number of servings: 1 eating out: 1-3 times/week during the past year weight has: remained stable what type of physical activity do you participate in: none angelina/scientology: Yazidi seatbelt use: always do you feel safe at home: Yes additional social history: [place] History 4 Elective abortions Hx Para 2 Spontaneous abortions 1 Hx # Term Pregnancies Ectopic pregnancies Hx # Pregnancies Multiple births # of living children 2 Past Pregnancies Del. Date Name GA/Weeks Outcome Route Bth Weight Infant Gen Labor Lgth Anesthesia Del Locatn Provider FOB 11/07/17 William 13 spontaneous Male pr ovider office [facility] 11/25/18 Anna Álvarez 37 live - full term 6lbs 1oz Female 16 hour epidural [facility] 03/14/21 Tisha 39 live - full term 7lbs 3oz Female ep idural [facility] Vandkvng Velde Delivery Date: 11/25/18 Last Updated by: Millie James NP, JENNIFER-C Cord around neck x2-tight; nuchal cord compression; GHTN:IOL 37 wk. Enlarged kidney Visit Details Expected Delivery Route/Plan Labor Preferences- CB/BF classes: [] labor support person: [] labor intervention preferences: [] pain management options preferred: [] cut cord/dad catch: [] : [] PP control planned: [] discussed possible routes of delivery and associated risks: [] special requests: [] Plans Covid status: [] Flu vaccine: denies Tdap vaccine: given Rhogam: na LARC form signed: declines movement and labor precautions reviewed. Problem list reviewed and updated with the most current plan of care details and appropriate orders placed. Relevant counseling for the gestational age provided. Continue routine care and follow up unless otherwise noted in visit notes/problem list details OB Flowsheet Initial Weight: Not Recorded Date -?-?-?-?-?-?-?-?-?-?-?-?- EGA Weight BP Urine Prot -?-?-?-?-?-?-?-?-?-?-?-?- Glucose FHR FuHt Pres Dilation -?-?-?-?-?-?-?-?-?-?-?-?- Effaced St Visit Note 03/21/23 -?-?-?-?-?-?-?-?-?-?-?-?- 7w 6d 168 lb 2 oz 121/77 -?-?-?-?-?-?-?-?-?-?-?-?- 163 -?-?-?-?-?-?-?-?-?-?-?-?- LC- CRL con with LMP. baseline PEC lab ordered. start on baby asa. hgba1c ordered. declines nipt. LC- CRL con with LMP. baseli ne PEC lab ordered. start on baby asa. hgba1c ordered. declines nipt. declines pap today due to hx of miscarriage. 04/16/23 -?-?-?-?-?-?-?-?-?-?-?-?- 11w 4d 173 lb 138/72 Negative -?-?-?-?-?-?-?-?-?-?-?-?- Negative 165 -?-?-?-?-?-?-?-?-?-?-?-?- JV- pt had some spotting yesterday without cramping. declines pelvic exam. ultrasound shows viable 11 week 4 day iup with heart tones and movement. no signs of earlene. 05/13/23 -?-?-?-?-?-?-?-?-?-?-?-?- 15w 3d 169 lb 122/70 Negative -?-?-?-?-?-?-?-?-?-?-?-?- Negative 152 -?-?-?-?-?-?-?-?-?-?-?-?- MH-NO VB. Denies concerns. Will get CMP & HgbA1c today. 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 She has lots of concerns. follow up scheduled with mf. 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 She has lots of concerns. follow up scheduled with mfm. 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 She has lots of concerns. follow up scheduled with mfm. NIPT recommended by Dr. pak but when she talked to Dr. moura he does not think necessary and patient declined. 07/09/23 -?-?-?-?-?-?-?-?-?-?-?-?- 23w 4d 179 lb 6 oz 119/80 Nega tive -?-?-?-?-?-?-?-?-?-?-?-?- Negative 150 -?-?-?-?-?-?-?-?-?-?-?-?- JV- JV- growth scan reviewed wit h patient. 54th% and stable 9mm largest cyst on right kidney. 08/07/23 -?-?-?-?-?-?-?-?-?-?-?-?- 27w 5d 177 lb 116/80 Negative -?-?-?-?-?-?-?-?-?-?-?-?- Negative 150 28 -?-?-?-?-?-?-?-?-?-?-?-?- no vb lof good fm no regular ctx 09/08/23 -?-?-?-?-?-?-?-?-?-?-?-?- 32w 2d 182 lb 92/56 Negative -?-?-?-?-?-?-?-?-?-?-?-?- Negative 147 32 -?-?-?-?-?-?-?-?-?-?-?-?- JV- seeing mfm f or next visit to discuss kidney status. no complaints today. will need letter of proof of and for her to not travel after 35 weeks gestation. 09/17/23 -?-?-?-?-?-?-?-?-?-?-?-?- 33w 4d 184 lb 118/78 Negative -?-?-?-?-?-?-?-?-?-?-?-?- Negative 145 33 -?-?-?-?-?-?-?-?-?-?-?-?- SM- no vb lof go od fm no regular ctx 10/06/23 -?-?-?--?-?-?-?-?-?-?-?-?- 36w 2d 184 lb 129/82 Negative -?-?-?-?-?-?-?-?-?-?-?-?- Negative 140 34 Breech 0.5 -?-?-?-?-?-?-?-?-?-?-?-?- JV- gbs collect4 d. baby is still breech. only had 1 kidney visible on last scan. m recommending MRI but will cost her $4000. She is requesting a version. Will call back when scheduled ROS Constitutional Constitutional: Denies change in weight, fatigue, fever(s), headache(s), poor appetite or weakness Eyes Eyes: Denies blurry vision, change in vision, seeing flashes or spots in vision ENT HEENT: Denies dizziness, headache(s), loss taste/smell or sore throat Cardiovascular Cardiovascular: Denies chest pain, dizziness, dyspnea, irregular heart rhythm, leg edema, palpitations, rapid heart rate or vomiting Respiratory/Chest Respiratory/Chest: Denies chest tightness, cough, dyspnea or breast pain Gastrointestinal Gastrointestinal: Denies abdominal pain, anorexia, constipation, cramping, diarrhea, hemorrhoids, vomiting or weight changes Genitourinary Genitourinary: Denies dysuria, flank pain, genital lesions, genital pain, urinary frequency or urinary urgency Musculoskeletal Musculoskeletal: Denies back pain, difficulty walking, joint pain, limited range of motion, muscle cramps or numbness Integumentary Integumentary: Denies lesions or unusual bruising Neurologic Neurologic: Denies abnormal movements, abnormal speech, dizziness, numbness, seizure-like activity or syncope Psychiatric Psychiatric: Denies anxiety, behavioral changes, change in appetite, change in libido, cognitive impairment, confusion, depression, difficulty concentrating, hallucinations or suicidal thoughts Endocrine Endocrinology: Denies excessive sweating, polydipsia or polyuria Hematologic/Lymphatic Hematologic/Lymphatic: Denies easy bleeding, easy bruising or lymphadenopathy Allergic/Immunologic Allergic/Immunologic: Denies itchy eyes, lip swelling, seasonal rhinorrhea, rhinitis, throat swelling, tongue swelling, eczemia, wheezing or asthma Vital Signs Vital Signs Vital Signs: 10/22/23 08:43 10/22/23 08:43 10/22/23 08:43 Temperature Temperature Source Pulse Rate 78 Respiratory Rate Blood Pressure 135/89 H BP Systolic 135 BP Diastolic 89 Pulse Ox 97 10/22/23 08:44 10/22/23 08:44 10/22/23 08:44 Temperature 98.1 F Temperature Source Temporal Pulse Rate Respiratory Rate 16 Blood Pressure BP Systolic BP Diastolic Pulse Ox Weight Weight: 185 lb 6 oz Body Mass Index (BMI) 33.9 Physical Exam Const alert, oriented x3, no apparent distress and healthy appearing General Appearance: cooperative; Negative for anxious HEENT normocephalic Face and Sinus: normal facial exam Eyes EOMs intact bilaterally and no scleral icterus General Eye: normal appearance of both eyes Neck full ROM and supple Lymph Lymphatic: no lymphadenopathy noted Chest Chest: abnormal inspection of the chest Resp normal respiratory effort Effort and Inspection: able to speak in complete sentences Cardio regular rate GI soft to palpation and non-tender Inspection: gravid Palpation: soft; Negative for tender external exam normal Amniotic Fluid: ROM+plus Back/Spine no CVA tenderness Extremity normal to inspection, full ROM and no clubbing, cyanosis or edema General Extremity: Negative for calf tenderness or edema Skin Lesions: no lesions Rashes: no rashes Psych mental status grossly normal Labs Labs Labs: Blood Type O POSITIVE Antibody Screen NEGATIVE Hct 35.3 % (37-47) L Hgb 11.8 g/dL (12.0-15.0) L Pap Smear Negative Obstetrics Ultrasound Syphilis Total Ab Non-reactive Rubella IgG Antibody Reactive (Nonreactive) Hep Bs Antigen Non-Reactive (Nonreactive) Hepatitis C Antibody Non-Reactive (Nonreactive) Chlamydia DNA (EDUARDO) Negative (Negative) N.gonorrhoeae DNA (EDUARDO) Negative (Negative) HIV 1&2 Antibody Non-Reactive (Nonreactive) Glucose 1 Hr 50 gm 140 mg/dL (70-140) Gest Glucose Tolerance MG/DL Rhogam given: No Miscellaneous Test Assessment & Plan (1) Abnormal glucose affecting : COMMENT: passed 3 hour (2) Obesity affecting : COMMENT: hbga1c. healthy weight gain in . (3) Choroid plexus cyst: COMMENT: see ultrasound. pt reassured by dr. pak (4) Multiple congenital cysts of kidney: COMMENT: scan showed right sided MCKD and is being followed by mfm. see ultrasound note. follow up scans scheduled. prognosis is excellent and usually regress after delivery. us from 07/03/23 showed growth 54%, persistent right multi-cystic dysplastic kidney. follow up in [place] arranged. (5) History of miscarriage, currently : COMMENT: 1st ([facility]) (6) Hx of pre-eclampsia in prior , currently : COMMENT: baseline labs ordered. asa. (7) Supervision of high-risk : QUALIFIERS: Trimester: second trimester Qualified Code(s): O09.92 - Supervision of high risk , unspecified, second trimester COMMENT: [id number], TORO 11/01/23, boy Tisha Guthrie([facility]) Clark (8) : QUALIFIERS: Weeks of gestation: 36 weeks Qualified Code(s): Z3A.36 - 36 weeks gestation of COMMENT: Neg GBS. declines AFP, genetic & carrier testing. anatomy reviewed. (9) Positive self-administered antigen test for COVID-19: COMMENT: 81 asa daily PLAN: Plan Patient presents IAL, plan expectant management for , pitocin/AROM PRN if needed. Pain management: plans epidural. GBS negative . Management of any complications: baby has 1 kidney. peds is aware. I have reviewed the [facility] and made any clinically relevant updates.
[2023-10-22 11:04] LABS: Absolute Lymphocyte Count 1.77 X10^3/uL (0.83-4.51); Absolute Neutrophil Count 7.6 X10^3/uL (2.0-7.7); Basophil# 0.04 X10^3/uL; Basophil% 0.4 % (0-1); Eosinophil# 0.02 X10^3/uL; Eosinophils% 0.2 % (0-5); Hematocrit 36.7 % (37-47); Hemoglobin 12.1 g/dL (12.0-15.0); Lymphocyte # 1.77 X10^3/ul (0.83-4.51); Lymphocyte % 17.4 % (19-41); Mean Corpuscular Hgb 29.2 pg (27.0-32.0); Mean Corpuscular Volume 88.6 fL (81-99); Mean Platelet Vol. 12.8 fl (6.2-12.0); Monocyte# 0.71 X10^3/uL; NRBC Flagged by Analyzer 0 % (0-5); Neutrophil # 7.57 X10^3/uL (2.7-7.7); Neutrophil % 74.5 % (47-70); Platelet Count 147 K/mm3 (150-450); RBC Distribution Width CV 13.6 % (11.6-14.6); RBC Distribution Width SD 43.9 fl (35.1-43.9); Red Blood Count 4.14 M/mm3 (4.2-5.4); White Blood Count 10.2 K/mm3 (4.4-11.0)
[2023-10-22 11:44] LABS: Syphilis Antibodies Non-reactive
[2023-10-22] MEDS: Lactated Ringers 1,000 ML 50 ML IV (12:17)
[2023-10-22] MEDS: Oxytocin 15 Units/NS 250ml 15 UNITS/250 ML IV.SOLN 2 UNITS IV (12:17)
[2023-10-22] MEDS: Lactated Ringers 1,000 ML 999 ML IV (14:04)
[2023-10-22] MEDS: fentaNYL-bupivacaine (epidural) 100 ML BAG EPIDURAL (15:00)
[2023-10-22] MEDS: Oxytocin 15 Units/NS 250ml 15 UNITS/250 ML IV.SOLN 334 UNITS IV (16:06)
--- NOTE | 2023-10-22 16:18 | EX.PCM.OBRPT ---
Assessment & Plan (1) Abnormal glucose affecting : COMMENT: passed 3 hour (2) Choroid plexus cyst: COMMENT: see ultrasound. pt reassured by dr. pak (3) Multiple congenital cysts of kidney: COMMENT: scan showed right sided MCKD and is being followed by mfm. see ultrasound note. follow up scans scheduled. prognosis is excellent and usually regress after delivery. us from 07/03/23 showed growth 54%, persistent right multi-cystic dysplastic kidney. follow up in [place] arranged. (4) History of miscarriage, currently : COMMENT: 1st ([facility]) (5) Hx of pre-eclampsia in prior , currently : COMMENT: baseline labs ordered. asa. (6) Supervision of high-risk : QUALIFIERS: Trimester: second trimester Qualified Code(s): O09.92 - Supervision of high risk , unspecified, second trimester COMMENT: [id number], TORO 11/01/23, Tisha Jenkins([facility]) Clark (7) : QUALIFIERS: Weeks of gestation: 36 weeks Qualified Code(s): Z3A.36 - 36 weeks gestation of COMMENT: Neg GBS. declines AFP, genetic & carrier testing. anatomy reviewed. (8) Positive self-administered antigen test for COVID-19: COMMENT: 81 asa daily Maternal Data Information TORO Calculator Estimated Delivery Date Method Current WG Current Estimate 11/01/23 LMP (Certain) 38w 4d Final TORO: 11/01/23 Final TORO Source: LMP Gestational age: 38 weeks 4 days Vaginal Delivery Maternal Presentation Maternal Presentation: Active Labor Type of Induction: Pitocin Operative Information Date of Procedure: 03/14/21 Pre-Operative Diagnosis: 38 weeks in active labor Post-Operative Diagnosis: 39 weeks in active labor Surgery / Procedure Performed: Spontaneous Vaginal Delivery and - Type of Anesthesia: Epidural Drain: ANA LILIA to bulb suction Estimated Blood Loss: 100cc Time of Delivery: 16:17 Findings Description of Procedure: Patient began pushing and delivered the head in the FLORA presentation. The head was delivered atraumatically . A Nuchal cord was reduced without difficulty. The anterior and posterior shoulders delivered without complication followed by the rest of the and the infant was placed on the maternal abdomen. Delayed cord clamping was employed for approximately 60 seconds. Cord was clamped and cut and gentle traction was applied to the cord and the placenta delivered spontaneously immediately following it was noted to be intact with three-vessel cord. The perineum and vagina were inspected and noted to have a 1st degree perineal laceration that was repaired using a 3-0 vicryl suture . EBL was 100 cc. Patient and tolerated delivery well. Baby boy Douglas Presentation: FLORA Amniotic Fluid Description: Clear Placental Delivery Description: Spontaneous Placenta Disposition: [facility] Cord Vessel Description: 3 Vessels Cord Entanglement: Around neck x 1, loose Nuchal Cord Compression: Without compression Infant A Gender: Male (1 minute): 8 (5 minute): 9 Delayed Cord Clamping: Yes Post Vaginal Delivery Medications Given After Delivery: IV Pitocin Episiotomy Description: None Laceration: Midline and 1st degree Complication Complications: None Admit VTE Documentation VTE Present on Admission: Yes Multi Select Codes Urinary/Genital Urinary/Genital CPT Codes: 14473 Vaginal Delivery [facility]
--- NOTE | 2023-10-22 16:21 | DCINST_ITS ---
Discharge Instructions Diet Discharge Diet: No restrictions Activity Discharge Activity: Return to Normal Activity, May Not Drive (while taking narcotic pain medications.) and May Shower May resume sexual activity in: 4-6 weeks Dressing / Incision Call your doctor if your incision/area has: Continuous Slow Oozing, Sudden Increased Bleeding, Increased Pain/ Swelling, Increased Redness and Foul Smelling Discharge Follow Up Care Please Follow Up With: Susan Larios, DO When: Call [phone] to make an appointment with your doctor in 6 weeks. If you had elevated blood pressure or 4th degree laceration, you will need to be seen in 2 weeks. Test Results: Test results from this visit will be discussed in further detail at your follow- up appointment, if applicable. Discharge Plan Admission Admit Date/Time: 10/22/23 09:37 Attending Provider: Susan Larios Primary Care Provider: Graeme Mendoza Discharge Orders/Prescriptions Prescriptions: No Action PNV-DHA 27 mg iron-1 mg -300 mg capsule 1 cap PO DAILY aspirin 81 mg capsule 81 mg PO DAILY Referrals / Follow Up: Graeme Mendoza MD [Primary Care Provider] -
[2023-10-22] MEDS: Oxytocin 15 Units/NS 250ml 15 UNITS/250 ML IV.SOLN 83 UNITS IV (16:51)
[2023-10-22] MEDS: 0.9% Saline Lock 10 ML Syringe IV (19:54)
[2023-10-22] MEDS: Acetaminophen 500 MG Tablet 1000 MG PO (23:49)
[2023-10-23 03:55] VITALS: BP 108/68; PULSE 75; RESP 17; TEMP 36.7; O2SAT 97
--- NOTE | 2023-10-23 07:38 | VDLE_ITS ---
Reason For Study: RLE PAIN RIGHT LEFT GSV is normal. CFV is compressible, spontaneous, phasic, CFV is compressible, spontaneous, phasic, competent, and demonstrates normal competent and demonstrates normal augmentation. augmentation. FV is compressible, spontaneous, phasic, competent and demonstrates normal augmentation. POP V is compressible, spontaneous, phasic, competent and demonstrates normal augmentation. T/P Trunk is compressible. PTV is compressible. RT PerV is compressible. Procedure This is a venous duplex using B-mode, color flow and spectral Doppler. Exam performed portable in patient room. A preliminary report was called and/or faxed to Dr. Benz & WP @ 08:25. VL/Venous Duplex US, Unilateral Interpretation Summary Deep veins of the right lower extremity are patent and compressible segmentally . There is no evidence of right lower extremity deep vein thrombosis. The right great sapheno us vein appears patent and compressible segmentally. Ordering Physician: Kelley Benz Referring Physician: Susan Larios; Graeme Mendoza Performed By: Jennifer Marie, MALCOLM, RVT
--- NOTE | 2023-10-23 07:40 | PN.OBGYN_ITS ---
Subjective Subjective Patient doing well without complaints. Tolerating PO. Ambulating and voiding without difficulty. feeding well. Denies chest pain, shortness of breath, co some calf pain no swelling,no fevers, chills, lightheadedness. Objective Data Objective Data Vital Signs: Vital Signs Temp Pulse Resp BP Pulse Ox O2 Del Method 98.1 F 75 17 108/68 97 Room Air 10/23/23 03:55 10/23/23 03:55 10/23/23 03:55 10/23/23 03:55 10/23/23 03:55 10/23/23 03:55 Oxygen Delivery Method Room Air Weight: 185 lb 6 oz Body Mass Index (BMI) 33.9 Intake & Output: Intake and Output for Last 24 Hours 10/21/23 10/22/23 10/23/23 23:59 23:59 23:59 Intake Total 2087.63 / 2087.63 Output Total 1050 / 1050 Balance 1037.63 / 1037.63 Lab / Micro Data 10/22/23 10:50 Labs: Laboratory Results - last 24 hr 10/22/23 08:45: Vag Amniotic Fld Detect POSITIVE H 10/22/23 10:50: WBC 10.2, RBC 4.14 L, Hgb 12.1, Hct 36.7 L, MCV 88.6, MCH 29.2, MCHC 33.0, RDW Std Deviation 43.9, RDW Coeff of Jacobo 13.6, Plt Count 147 L, MPV 12.8 H, Immature Gran % (Auto) 0.500, Neut % (Auto) 74.5 H, Lymph % (Auto) 17.4 L, [place] % (Auto) 7.0, Eos % (Auto) 0.2, Baso % (Auto) 0.4, Absolute Neuts (auto) 7.6, Absolute Lymphs (auto) 1.77, Nucleated RBC % 0, Syphilis Total Ab Non- reactive, Blood Type O POSITIVE, Antibody Screen NEGATIVE ROS Constitutional Constitutional: Reports systems reviewed and no addt'l complaints, except as documented Cardiovascular Cardiovascular: Reports systems reviewed and no addt'l complaints, except as documented Respiratory/Chest Respiratory/Chest: Reports systems reviewed and no addt'l complaints, except as documented Gastrointestinal Gastrointestinal: Reports systems reviewed and no addt'l complaints, except as documented Physical Exam Const alert, oriented x3 and no apparent distress HEENT Head and Scalp: atraumatic Resp normal respiratory effort GI soft to palpation and non-tender Bimanual Exam - Vag & Uterus: uterus non-tender Uterus Palpation: uterus fundus firm (below Umbilicus) Assessment & Plan (1) Vaginal delivery: PLAN: Plan s/p PPD # 1 1. routine post delivery care 2. breast feeding- support given 3. rh positive 4. rubella immune calf pain- doppler ordered
[2023-10-23] MEDS: Ibuprofen 600 MG Tablet PO (07:51)
[2023-10-23 08:00] VITALS: BP 110/81; PULSE 88; RESP 16; TEMP 36.8; O2SAT 100
[2023-10-23 13:43] VITALS: BP 119/85; PULSE 84; RESP 16; O2SAT 98
--- NOTE | 2023-10-24 11:59 | CASEMGMT ---
Social Work Labor and Delivery Unit Reason for referral: history of PPD/A History obtained from: patient and chart review SW met with patient and at bedside. Introduced self and role. agreeable to exit room for this worker to speak with MOB 1:1, upon this worker's request. MOB sitting up in bed, baby resting in bassinet, appeared comfortable, happy, calm, and agreeable/open to speak with this worker. Household Composition: NOEMI lives with , Bulmaro alberts for 14 years, and their two daughters (5 yo and 3 yo). MOB denies any abuse or past/present issues with /FOB. Medical history: First resulted in a miscarriage of a male at 13 weeks, whom mother and father named William. NOEMI did not have difficulty having future pregnancies, however, the second had some complications. NOEMI reports that it was difficult for her to tran with baby d/t trauma of miscarriage and complications, thinking baby was not going to live. (see further details in mental health history section) Financial status: NOEMI denies any financial issues. /FOB works full-time as a [employer]. 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 supplies: NOEMI is and formula feeding, planning to switch full-time formula, which is what she did for her first two babies. NOEMI denies any concerns with other supplies. Support System: NOEMI mother and aunt live together and lives nearby [place] and will be watching the children while NOEMI returns to work. NOEMI has two siblings whom she has a close relationship with and have multiple children themselves. Programs/Agencies Involved: For second baby, [facility] was used for special reflux formula needed. Mental Health History: NOEMI shares during her second the anxiety began during d/t having a miscarriage with her first and having some complications, i.e. breech, umbilical cord wrapped around the baby's neck. However, MOB did not identify she had PPD/A during that or post-. During that time, NOEMI reports other life stressors going on, such as the loss of her MIL. Mother's second post-, at her [facility] f/u appt at 6 weeks, MOB shared the anxious feeling she was experiencing and agreed to starting a low dose of an antidepressant. MOB report to taking that medication for several months, having improvement, and then weaning off the medication. However, when the second baby was a couple months old there was a near incident suspected to result from baby's severe reflux, which increased mother's depression and anxiety, also then struggling to tran further with second baby as mother wasn't sure the baby would be alive when [mother] would wake [the second baby] up in the morning, also noting having some PTSD from the miscarriage. NOEMI reports she allowed time to pass and regain confident and tran with her second baby. MOB reports she had no mood issues during this baby's and is not too prideful to ask for medication again and express her feelings. MOB reports she has not attended counseling prior, but is open to it if warranted. NOEMI reports her /FOB is very supportive, along with her family. NOEMI states that FOB/ is currently newly taking an antidepressant from the loss of his mother, which is long overdue, but reports improvement and stabilization to his mood. NOEMI is aware of signs/symptoms of PPD/A and agrees to notify her provider for assistance. MOB denies any history of SI and no current SI. MOB denies any SDOH issues; feels safe at home; no issues or safety concerns with FOB/. JOHN educated and provided resources to MOB on safe sleep, shaken baby syndrome, PPD/A vs baby clues, counseling, help hotlines, formula pantries, HMG, and paternal depression. SW notified nursing MOB is cleared for discharge from social work. ELIOT RileyW
--- NOTE | 2023-10-27 11:31 | NURSING ---
F/up phone call performed, no ans, LVM.
== END 2023-10-23 18:35 | disposition home or self-care (01) | DRG 560 ==
LOC: WPOUT 09:39 → WP 09:39
PROVIDERS: Admitting Provider Obstetrics & Gynecology; PCP Family Medicine; Referring Provider Obstetrics & Gynecology; Visit Provider Obstetrics & Gynecology
DX: O42.92 Full-term premature rupture of membranes, unspecified as to length of time between rupture and onset of labor (principal); Z37.0 Single live birth; M79.661 Pain in right lower leg; O99.214 Obesity complicating childbirth; O99.893 Other specified diseases and conditions complicating puerperium; O35.8XX0 Maternal care for other (suspected) fetal abnormality and damage, not applicable or unspecified; O70.0 First degree perineal laceration during delivery; Z87.59 Personal history of other complications of pregnancy, childbirth and the puerperium; O69.81X0 Labor and delivery complicated by cord around neck, without compression, not applicable or unspecified; Z3A.38 38 weeks gestation of pregnancy; Z79.82 Long term (current) use of aspirin; Z86.16 Personal history of COVID-19
CPT/HCPCS: 59025; 59050; 84112; 85025; 86780; 86850; 86900; 86901; 93971; 99221; J7120; A4216; G0378

== ENCOUNTER 2024-08-14 17:35 | Emergency (ER) | payer MEDICAID, SELFPAY ==
[2024-08-14] VITALS (7 sets, daily range): BP systolic 105–142; BP diastolic 64–102; PULSE 78–124; RESP 16–21; TEMP 36.6; O2SAT 97–100; BMI 30.2
--- NOTE | 2024-08-14 18:16 | EKG12_ITS ---
Test Reason : PALPS Blood Pressure : */* mmHG Vent. Rate : 93 BPM Atrial Rate : 93 BPM P-R Int : 142 ms QRS Dur : 86 ms QT Int : 340 ms P-R-T Axes : 48 -1 15 degrees QTcB Int : 422 ms Normal sinus rhythm Normal ECG Confirmed by Terry Acosta ([id number]), supervising editor news reel DON JARRETT ([id number]) on 08/23/2024 1:03:53 PM Referred By: ANAIS/CLAUDE Confirmed By: Terry Acosta
[2024-08-14] MEDS: Aspirin 81 MG TAB.CHEW 324 MG PO (18:28)
[2024-08-14 18:37] LABS: Absolute Lymphocyte Count 3.09 X10^3/uL (0.83-4.51); Absolute Neutrophil Count 5.3 X10^3/uL (2.0-7.7); Basophil# 0.06 X10^3/uL; Basophil% 0.6 % (0-1); Eosinophil# 0.17 X10^3/uL; Eosinophils% 1.8 % (0-5); Hematocrit 40.1 % (37-47); Hemoglobin 13.7 g/dL (12.0-15.0); Lymphocyte # 3.09 X10^3/ul (0.83-4.51); Lymphocyte % 32.3 % (19-41); Mean Corp Hgb Conc 34.2 g/dL (32-36); Mean Corpuscular Hgb 29.9 pg (27.0-32.0); Mean Corpuscular Volume 87.6 fL (81-99); Mean Platelet Vol. 11.3 fl (6.2-12.0); Monocyte# 0.88 X10^3/uL; Monocyte% 9.2 % (0-10); NRBC Flagged by Analyzer 0 % (0-5); Neutrophil # 5.34 X10^3/uL (2.7-7.7); Neutrophil % 55.8 % (47-70); Platelet Count 262 K/mm3 (150-450); RBC Distribution Width SD 38.5 fl (35.1-43.9); Red Blood Count 4.58 M/mm3 (4.2-5.4); White Blood Count 9.6 K/mm3 (4.4-11.0)
[2024-08-14 18:52] LABS: D-Dimer Quantitative (DVT/PE) 0.27 FEU/ug/m (0.27-0.49)
[2024-08-14 19:02] LABS: Anion Gap 13 (5-15); BUN 13 mg/dL (4-19); BUN/Creat Ratio 18.4 RATIO (10-20); Calcium,Total 9.5 mg/dL (7.6-11.0); Carbon Dioxide 21.9 mmol/L (21.0-32.0); Chloride 104 mmol/L (98-108); Creatinine, Serum 0.73 mg/dL (0.70-1.20); EST Glomerular Filtration Rate 113 (>60); Estimated Creatinine Clearance 104.79 ml/min (50-250); Glucose 95 mg/dL (70-99); Potassium 3.6 mmol/L (3.3-5.1); Sodium Level 139 mmol/L (133-145); Troponin T High Sensitivity 11 ng/L (<=14)
--- NOTE | 2024-08-14 19:15 | RAD_ITS ---
PROCEDURE: CHEST PA AND LATERAL 08/14/2024 REASON FOR EXAM: CHEST PAIN TECHNIQUE: Frontal and lateral views of the chest. COMPARISON: None. FINDINGS: Hardware: None. Heart: The heart size is normal. Mediastinum: The mediastinal contour is unremarkable. Lungs: No focal consolidation, pleural effusion or pneumothorax. Bones: The bones are unremarkable. RAD/Chest PA and Lateral IMPRESSION: NEGATIVE CHEST. Reading Location: [id number]
[2024-08-14 20:50] LABS: Troponin T High Sens 2 HR < 6 ng/L (<=14)
--- NOTE | 2024-08-14 20:59 | ED.VIS.CHEST ---
HPI History of Present Illness Chief Complaint: Palpitations Informant: patient Narrative Narrative: Patient is a 33-year-old female with no seeming past medical history presenting with palpitations. Patient notes that for the past week she has had random episodes of lightheadedness. She also notes that she has been having random body aches. She has had some mild tenderness in her neck where her skull and her spine meets. She is not sure if any of this is related. She states that beginning the month she did have a URI and some chest congestion. She ultimately was treated with a Z-Stanton. Today she felt that her heart was racing. She also felt a pinching sensation in her left chest that feels deep. She denies any change or symptoms with breathing. She was worried given the symptoms in addition to her recent lightheadedness and came in for further evaluation. She notes that she was working outside but overall was taking it easy and was not particularly exerting herself when this started. She does note that she has been feeling like her heart is racing when she is going upstairs which is atypical for her. She denies any leg swelling. Denies any family history of heart disease especially at a young age or cardiac arrhythmias. Denies any history of DVT or PE. Does not take any estrogen medications. States that her primary care doctor at 1 point thought they heard mitral valve prolapse murmur when to get an echo but at that time she did not have insurance so she did not follow-up with that. The last time she saw her PCP no murmurs appreciated. Patient is no other complaints or concerns at this time. [facility] Medical History Seasonal allergies Positive self-administered antigen test for COVID-19 depression Pre-eclampsia Anxiety Home Medications ?Medication ?Instructions ?Recorded ?Last Taken ?Type NK 08/14/24 Unknown History Allergy/AdvReac Type Severity Reaction Status Date / Time No Known Allergies Allergy Verified 08/14/24 17:38 Family History Father Hypertension Fibromyalgia Mother Anxiety Grandmother Cancer lung Breast cancer, Onset Age: 70 paternal Grandfather Cancer leukemia Father Hypertension Fibromyalgia Grandfather Hypertension Surgical History excision lipoma left clavicular region (~07/05/20) History of tonsillectomy Social History adopted: No household members: spouse and children number of children: 2 current occupational status: employed 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 current occupational exposures/hazards: No pets and animals: Yes (Not managing litterbox) pets and animals: cat(s) and dog(s) history of recent travel: No sexually active: Yes Smoking Status: Never smoker alcohol intake: current details: pre substance use type: does not use well-balanced diet: about half the time caffeine: Yes Type: coffee Number of servings: 1 eating out: 1-3 times/week during the past year weight has: remained stable what type of physical activity do you participate in: none angelina/zoroastrian: Islam seatbelt use: always do you feel safe at home: Yes additional social history: [employer] ED Constitutional Constitutional ED: Denies chills or fever(s) ENT ENT ED: Denies rhinorrhea or sore throat Cardiovascular Cardiovascular: Reports as per HPI, chest pain, palpitations and racing heartbeat Respiratory/Chest Respiratory/Chest: Reports cough; Denies dyspnea or dyspnea on exertion Gastrointestinal Gastrointestinal: Denies abdominal pain, nausea or vomiting Musculoskeletal Musculoskeletal: Reports myalgias and neck pain; Denies arthralgias Integumentary Denies rash Neurologic Neurologic: Denies paresthesias or weakness Hematologic/Lymphatic Hematologic/Lymphatic: Denies easy bleeding or easy bruising EXAM Physical Exam Const Vital Signs: 08/14/24 17:35 08/14/24 17:54 08/14/24 17:55 Temperature 97.9 F Temperature Source Temporal Pulse Rate 124 H 97 Pulse Rate [Lying] Pulse Rate [Sitting (for 1 minute prior to obtaining)] Pulse Rate [Standing (for 1 minute prior to obtaining)] Respiratory Rate 19 H 17 Respiratory Effort Normal Non-Labored Blood Pressure 142/102 H 131/83 H Blood Pressure [Lying] Blood Pressure [Sitting (for 1 minute prior to obtaining)] Blood Pressure [Standing (for 1 minute prior to obtaining)] Blood Pressure Mean 115 99 Blood Pressure Mean [Lying] Blood Pressure Mean [Sitting (for 1 minute prior to obtaining)] Blood Pressure Mean [Standing (for 1 minute prior to obtaining)] Pulse Ox 100 100 Oxygen Delivery Method Room Air Room Air 08/14/24 18:35 08/14/24 18:48 08/14/24 18:55 Temperature Temperature Source Pulse Rate 88 Pulse Rate [Lying] 84 Pulse Rate [Sitting (for 1 minute prior to obtaining)] 83 Pulse Rate [Standing (for 1 minute prior to obtaining)] 92 Respiratory Rate 21 H Respiratory Effort Blood Pressure 105/67 Blood Pressure [Lying] 120/79 Blood Pressure [Sitting (for 1 minute prior to obtaining)] 118/91 H Blood Pressure [Standing (for 1 minute prior to obtaining)] 124/93 H Blood Pressure Mean 79 Blood Pressure Mean [Lying] 92 Blood Pressure Mean [Sitting (for 1 minute prior to obtaining)] 100 Blood Pressure Mean [Standing (for 1 minute prior to obtaining)] 103 Pulse Ox 98 Oxygen Delivery Method Room Air Room Air 08/14/24 18:55 08/14/24 20:00 08/14/24 21:00 Temperature Temperature Source Pulse Rate 78 80 Pulse Rate [Lying] Pulse Rate [Sitting (for 1 minute prior to obtaining)] Pulse Rate [Standing (for 1 minute prior to obtaining)] Respiratory Rate Respiratory Effort Blood Pressure 124/93 H 108/64 118/78 Blood Pressure [Lying] Blood Pressure [Sitting (for 1 minute prior to obtaining)] Blood Pressure [Standing (for 1 minute prior to obtaining)] Blood Pressure Mean 103 78 91 Blood Pressure Mean [Lying] Blood Pressure Mean [Sitting (for 1 minute prior to obtaining)] Blood Pressure Mean [Standing (for 1 minute prior to obtaining)] Pulse Ox 100 97 98 Oxygen Delivery Method Room Air Room Air Room Air 08/14/24 21:05 Temperature 97.9 F Temperature Source Pulse Rate 78 Pulse Rate [Lying] Pulse Rate [Sitting (for 1 minute prior to obtaining)] Pulse Rate [Standing (for 1 minute prior to obtaining)] Respiratory Rate 16 Respiratory Effort Blood Pressure 118/78 Blood Pressure [Lying] Blood Pressure [Sitting (for 1 minute prior to obtaining)] Blood Pressure [Standing (for 1 minute prior to obtaining)] Blood Pressure Mean 91 Blood Pressure Mean [Lying] Blood Pressure Mean [Sitting (for 1 minute prior to obtaining)] Blood Pressure Mean [Standing (for 1 minute prior to obtaining)] Pulse Ox 100 Oxygen Delivery Method Positive well nourished and well developed General Appearance ED: well developed and NAD HEENT Reports moist mucous membranes normocephalic and atraumatic Eyes PERRL Neck supple and no JVD Neck Narrative: No meningeal signs Chest Wall inspection of chest normal and palpation of chest normal Resp normal respiratory effort and clear to auscultation bilaterally Cardio regular rate, regular rhythm and no murmurs Cardio Narrative: 2+ radial DP pulses present GI normal to inspection, nondistended, normoactive bowel sounds, soft to palpation and non-tender Extremity normal to inspection Extremity Narrative: No palpable cords. General Extremety ED: Negative for edema General Extremity: Negative for edema Neuro oriented x3 Sensorium / Orientation: awake and alert Motor Exam: Negative for general weakness Psych mental status grossly normal Skin no rashes or lesions noted and no wounds Heart Score History: Slightly/Non-Suspicious ECG: Normal Age: </= 45 years Risk Factors: No Risk Factors Troponin: </= Normal Limit Score: 0 MDM MDM MDM Narrative Medical decision making narrative: Patient's evaluated for intermittent lightheadedness over the past week and palpitations as well as pinching chest pain that started today. Patient is tachycardic upon arrival with mildly elevated blood pressure. Heart rate and blood pressure improved without any intervention in the emergency room. Differential includes ACS, Differential diagnosis includes ACS, myocarditis, hypovolemia, symptomatic anemia, pulmonary emboli, electrolyte derangement, thyroid abnormality. Workup including CBC, D-dimer, delta high-sensitivity troponin, magnesium, TSH and BMP as well as chest x-ray and EKG obtained. Workup is largely normal. Patient is asymptomatic on the emergency room. Orthostatic vital signs are normal. The exact cause or symptoms is not clear at this time I do feel she is safe for outpatient follow-up. Patient is given reassurance. Given she had a recent viral syndrome it is possible this could be more of a viral etiology or costochondritis. Encouraged follow-up with primary care doctor. Given return precautions. Discharged home in stable condition. Lab Data Attestation: I reviewed the patient's lab results. Labs: Laboratory Results - last 24 hr 08/14/24 08/14/24 18:25 20:17 WBC 9.6 RBC 4.58 Hgb 13.7 Hct 40.1 MCV 87.6 MCH 29.9 MCHC 34.2 RDW Std Deviation 38.5 RDW Coeff of Jacobo 12.0 Plt Count 262 MPV 11.3 Immature Gran % (Auto) 0.300 Neut % (Auto) 55.8 Lymph % (Auto) 32.3 Dickenson % (Auto) 9.2 Eos % (Auto) 1.8 Baso % (Auto) 0.6 Absolute Neuts (auto) 5.3 Absolute Lymphs (auto) 3.09 Nucleated RBC % 0 D-Dimer Quant (PE/DVT) 0.27 Sodium 139 Potassium 3.6 Chloride 104 Carbon Dioxide 21.9 Anion Gap 13 BUN 13 Creatinine 0.73 Estim Creat Clear Calc 104.79 Est GFR (MDRD) Non-Af 113 BUN/Creatinine Ratio 18.4 Glucose 95 Calcium 9.5 Magnesium 2.0 Troponin T High Sens 11 Troponin T Hi Sens 2 Hr < 6 TSH 3.470 Radiography Chest X-Ray - ED: 2 View, Read by ED Physician, Read by Radiologist, Normal and No Acute Disease Diagnostic Testing: Clinical Impression(s) from Imaging Studies Chest X-Ray 08/14/24 19:15 IMPRESSION: NEGATIVE CHEST. Reading Location: [facility] Rhythm Strip Rhythm Strip: Sinus Rhythm Rate: 93 Ectopy: None EKG Initial EKG: Attestation: I personally reviewed and interpreted this EKG as follows: Interpretation: Sinus Rhythm Comments: Normal sinus rhythm rate of 93 bpm Normal axis Normal intervals Normal ST segments Compared to prior EKG on 07/29/2020, no acute changes Discharge Plan Triage Chief Complaint: Palpitations ED Provider: Jeanine Pierre Dx/Rx/DC Orders Clinical Impression: Episodic lightheadedness, Chest pain, Palpitation Instructions: ED Chest Pain, Uncertain Cause, ED Dizziness, Uncertain Cause, ED Palpitations Prescriptions: No Action NK Primary Care Provider: Graeme Mendoza Referrals: Graeme Mendoza MD [Primary Care Provider] - Activity Restrictions/Additional Instructions: Your workup today was largely normal. No acute process can be found. Please follow-up with your primary care doctor for further outpatient management. They might want to do outpatient echocardiogram or event/Holter monitoring. If you have progression of her severe symptoms please do not hesitate to return the emergency room. Print Language: Wallisian Disposition Disposition: Home, Self Care Discharge Date/Time: 08/14/24 21:19
== END 2024-08-14 21:19 | disposition home or self-care (01) ==
PROVIDERS: Emergency Provider Emergency Medicine; PCP Family Medicine; Visit Provider Emergency Medicine
DX: R42 Dizziness and giddiness (principal); R00.2 Palpitations; R07.89 Other chest pain
CPT/HCPCS: 71046; 80048; 83735; 84443; 84484; 85025; 85379; 93005; 99285; A4216